=== PATIENT | male | born 1965 | race Caucasian/White ===

== ENCOUNTER 2017-08-01 13:39 | Emergency (ER) | payer MEDICARE, OTHER ==
[2017-08-01] MEDS ORDERED: SODIUM CHLORIDE 0.9% 1,000 ML IV STA (13:58)
[2017-08-01] MEDS ORDERED: KETOROLAC 30 MG/ML 1 ML VIAL IVP STA (13:58)
[2017-08-01] MEDS ORDERED: SODIUM CHLORIDE 0.9% 500 ML IV STA (13:58)
[2017-08-01] MEDS ORDERED: METOCLOPRAMIDE 5 MG/ML 2 ML VIAL IVP STA (13:58)
[2017-08-01] MEDS ORDERED: DEXAMETHASONE SOD PHOSPHATE 10 MG/ML 1 ML VIAL IV STA (13:59)
[2017-08-01] MEDS ORDERED: MAGNESIUM SULFATE-D5W PMX 1 GM in DEXTROSE/WATER 1 100ML.BAG IVPB ONE (13:59)
--- NOTE | 2017-08-01 14:58 | CT ---
EXAMINATION TYPE: CT brain wo con DATE OF EXAM: 08/01/2017 COMPARISON: NONE HISTORY: Headache x 1 month. Patient is on blood thinners. CT DLP: 1329.00 mGycm Automated exposure control for dose reduction was used. FINDINGS: Exam limited by motion artifact. No obvious acute intraparenchymal hemorrhage noted. Due to the amoun t of motion artifact assessment for subtle hemorrhage limited. No midline shift. Calvarium grossly intact. Hypoaeration the right mastoid air cells likely on the ba sis of chronic mastoiditis. IMPRESSION: 1. LIMITED EXAM DUE TO MOTION DEMONSTRATES NO OBVIOUS ACUTE INTRACRANIAL HEMORRHAGE OR MASS EFFECT. I F SYMPTOMS PERSIST CONSIDER MRI GIVEN LIMITATION OF THE EXAM.
--- NOTE | 2017-08-01 15:50 | ED ---
Headache HPI - General Chief Complaint: Headache Stated Complaint: Mirgaine Time Seen by Provider: 08/01/17 13:52 Mode of arrival: ambulatory Limitations: no limitations - History of Present Illness Initial Comments: This 52-year-old white male presents with a complaint of a headache. He states that it is in his occipital region and biparietal areas. He states that it is consistent with his migraine headaches but is fairly severe. He does relate that it radiates to his neck. This been no fevers. He apparently had some slurring of his speech over the past day but this has subsequently resolved. He denies any problems with vision. He denies any head injuries. He is not had any workup in regard to imaging recently. No other complaints or modifying factors. - Related Data Home Medications Medication Instructions Recorded Confirmed Albuterol Inhaler [Ventolin Hfa 1 - 2 puff INHALATION RT-Q6H PRN 08/01/17 Inhaler] Furosemide [Lasix] 20 mg PO DAILY 08/01/17 08/01/17 Gabapentin [Neurontin] 300 mg PO TID 08/01/17 08/01/17 Potassium Chloride ER [K-Dur 10] 10 meq PO DAILY 08/01/17 08/01/17 Rivaroxaban [Xarelto] 20 mg PO DAILY 08/01/17 08/01/17 Allergies Allergy/AdvReac Type Severity Reaction Status Date / Time Penicillins AdvReac Anaphylaxis Verified 08/01/17 14:24 Review of Systems ROS Statement: Those systems with pertinent positive or pertinent negative responses have been documented in the HPI. ROS Other: All systems not noted in ROS Statement are negative. Past Medical History Past Medical History: Asthma, Heart Failure, COPD, Deep Vein Thrombosis (DVT) Additional Past Medical History / Comment(s): depression,PE History of Any Multi-Drug Resistant Organisms: MRSA Date of last positivie culture/infection: 07/27/2014 MDRO Source:: Left leg Past Surgical History: Tonsillectomy Past Psychological History: Unable to Obtain Smoking Status: Current every day smoker Past Alcohol Use History: None Reported Past Drug Use History: None Reported General Exam - General Exam Comments Initial Comments: GENERAL: The patient is well nourished and well hydrated. VITAL SIGNS: Heart rate, blood pressure, respiratory rate reviewed as recorded in nurse's notes. EYES: Pupils are round and reactive. Extraocular movements are intact. No conjunctival / lid redness or swelling. ENT: No external evidence of injury, swelling, or ecchymosis. Airway is patent. Throat is clear. NECK: Nontender. No swelling or evidence of injury. No subcutaneous emphysema. Trachea is midline. No thyroid mass. No meningeal signs. HEART: Regular rate and rhythm. Good peripheral pulses. LUNGS/CHEST: Breath sounds clear and equal bilaterally. No rales, rhonchi, or wheezes. No ecchymosis, subcutaneous emphysema, or tenderness. ABDOMEN: Abdomen soft without tenderness. No palpable masses or organomegaly. No peritoneal signs. No abdominal wall swelling or ecchymosis. EXTREMITIES: No extremity tenderness. Normal muscle tone and function. No thoracolumbar tenderness. NEUROLOGIC: Sensation is grossly intact. Cranial nerve exam reveals face is symmetrical, tongue is midline, speech is clear. SKIN: No abrasions or ecchymosis is noted. No induration or masses noted. PSYCHIATRIC: Alert and oriented. Appropriate behavior and judgment. Limitations: no limitations Course Vital Signs 08/01/17 13:44 Temperature 98.5 F Pulse Rate 119 H Respiratory 28 H Rate Blood Pressure 159/84 O2 Sat by Pulse 90 L Oximetry Medical Decision Making - Medical Decision Making The patient was seen and examined. His computed tomography scan of the brain does not show any acute process per radiology. There is some limited motion artifact. Patient receives an IV with IV fluid hydration, IV Decadron, IV Toradol, IV magnesium, and IV Reglan. On recheck, he is sleeping. He feels remarkably improved. It is felt as though he stable for discharge home and that his symptoms are likely consistent with a migraine headache. Return parameters are discussed. Disposition Clinical Impression: Migraine Disposition: HOME SELF-CARE Condition: Good Instructions: Migraine Headache (ED) Referrals: Kareem Ho MD [Primary Care Provider] - 1-2 days Time of Disposition: 15:49
[2017-08-01 16:10] VITALS: BP 109/59; PULSE 107; RESP 20; TEMP 98
== END 2017-08-01 16:10 | disposition home or self-care (01) ==
LOC: EC 13:39
DX: G43.909 Migraine, unspecified, not intractable, without status migrainosus (principal); I50.9 Heart failure, unspecified; F32.9 Major depressive disorder, single episode, unspecified; F17.200 Nicotine dependence, unspecified, uncomplicated; Z86.711 Personal history of pulmonary embolism; Z86.718 Personal history of other venous thrombosis and embolism; Z86.14 Personal history of Methicillin resistant Staphylococcus aureus infection; Z79.899 Other long term (current) drug therapy; Z79.01 Long term (current) use of anticoagulants; Z88.0 Allergy status to penicillin
CPT/HCPCS: 99284 ×2; 96365; 96375 ×4; 96361 ×3; 96374; 70450; J1100; J2765; J1885; J3475

== ENCOUNTER → 2018-08-17 | Outpatient (CLI) | payer MEDICARE ==
--- NOTE | 2018-08-17 15:52 | US ---
EXAMINATION TYPE: US thyroid st tissue head/neck DATE OF EXAM: 08/17/2018 COMPARISON: NONE CLINICAL HISTORY: R22.0 Thyroid swelling, R00.2 Palpitations. Pt states feeling lump/swelling in thro at Pt heavy breathing, difficult exam GLAND SIZE: Right Lobe: 4.3 x 2.2 x 1.8 cm Overall Parenchyma: heterogenous Left Lobe: 3.7 x 1.6 x 1.6 cm Overall Parenchyma: heterogeneous Isthmus Thickness: 0.5 cm NODULES LEFT: # of nodules measured on left: 1 1. 0.7 X 0.6 x 0.6 cm hypoechoic solid nodule at the mid pole with well-defined margins; This nodu le is wider than tall and shows no intranodular vascularity. Prior size: No prior Bilateral neck scanned, possible lymph node left lateral neck= 0.7 cm, hypoechoic/mixed in appearance . Nodule left lobe of thyroid. IMPRESSION: Subcentimeter left thyroid nodule.
--- NOTE | 2018-08-18 09:33 | ECHOF ---
Referral Reason:R22.0 Thyroid swelling, R00.2 Palpitations MEASUREMENTS -------- HEIGHT: 182.9 cm WEIGHT: 106.6 kg BP: RVIDd: 3.6 cm (< 3.3) IVSd: 1.3 cm (0.6 - 1.1) LVIDd: 4.0 cm (3.9 - 5.3) LVPWd: 1.2 cm (0.6 - 1.1) IVSs: 1.6 cm LVIDs: 2.9 cm LVPWs: 1.4 cm LAESV Index (A-L): 17.84 ml/m Ao Diam: 3.7 cm (2.0 - 3.7) AV Cusp: 2.1 cm (1.5 - 2.6) LA Diam: 3.6 cm (2.7 - 3.8) MV EXCURSION: 21.518 mm (> 18.000) MV EF SLOPE: 80 mm/s (70 - 150) EPSS: 0.8 cm MV E Jose: 0.75 m/s MV DecT: 261 ms MV A Jose: 1.07 m/s MV E/A Ratio: 0.71 RAP: 10.00 mmHg RVSP: 16.95 mmHg FINDINGS -------- Resting tachycardia (HR>100bpm). This was a technically adequate study. The left ventricular size is normal. There is mild concentric left ventricular hypertrophy. Overa ll left ventricular systolic function is normal with, an EF between 55 - 60 %. The right ventricle is mildly enlarged. Normal LA size by volume 22+/-6 ml/m2. RA appears enlarged. There is mild aortic valve sclerosis. There is no evidence of aortic regurgitation. There is no e vidence of aortic stenosis. Mild mitral annular calcification present. There is trace to mild mitral regurgitation. Trace tricuspid regurgitation present. Right ventricular systolic pressure is normal at < 35 mmHg. There is no evidence of pulmonary hypertension. The pulmonic valve was not well visualized. The aortic root size is normal. The IVC is dilated with normal collapse. There is no pericardial effusion. CONCLUSIONS -------- 1. Resting tachycardia (HR>100bpm). 2. This was a technically adequate study. 3. The left ventricular size is normal. 4. There is mild concentric left ventricular hypertrophy. 5. Overall left ventricular systolic function is normal with, an EF between 55 - 60 %. 6. The right ventricle is mildly enlarged. 7. Normal LA size by volume 22+/-6 ml/m2. 8. RA appears enlarged. 9. There is mild aortic valve sclerosis. 10. Mild mitral annular calcification present. 11. There is trace to mild mitral regurgitation. 12. Trace tricuspid regurgitation present. 13. Right ventricular systolic pressure is normal at < 35 mmHg. 14. There is no evidence of pulmonary hypertension. 15. The pulmonic valve was not well visualized. 16. The aortic root size is normal. 17. The IVC is dilated with normal collapse. 18. There is no pericardial effusion. TAB CUTTING MACHINE OPERATOR: Shawn Strong RDCS
== END | disposition home or self-care (01) ==
LOC: RADECHMAIN 14:49
PROVIDERS: ATTEND Internal Medicine
DX: E04.1 Nontoxic single thyroid nodule (principal); I08.0 Rheumatic disorders of both mitral and aortic valves; Z88.0 Allergy status to penicillin
CPT/HCPCS: 76536; 93306

== ENCOUNTER → 2018-11-13 | Outpatient (CLI) | payer MEDICARE ==
--- NOTE | 2018-11-13 20:36 | CONS ---
CONSULTATION REASON FOR CONSULTATION: Sleep apnea. This is a 53-year-old male patient with advanced COPD with a baseline FEV1 of 27% of predicted. The patient also has chronic hypoxic respiratory failure, maintained on oxygen 4 L/minute nasal cannula. The patient also has had chronic hypercapnic respiratory failure, and previous evaluations have indicated the patient suffers from a left hemidiaphragmatic paralysis. This was confirmed by a positive sniff test. The patient has had on and off hospitalizations for COPD exacerbation and hypercapnic respiratory failure and CO2 narcosis. He is still smoking cigarettes. He was referred to [facility] for diaphragmatic plication; however, this was declined, as the patient was still smoking and the patient was felt to be at high risk for surgical complications. During initial evaluation at his primary care physician's office, the patient was given a BiPAP ST machine and he was asked to come into the sleep center for further evaluation. He was placed on a spontaneous mode on his VPAP auto with an EPAP minimum of 7 and IPAP of 15. He got this machine approximately a month ago. Based on the compliance data that I have obtained from his machine, the patient has utilized his machine 28 out of 30 days, achieving a compliance of 93%. He achieved more than 4 hours 73% of the time. He is averaging around 5 hours and 34 minutes of VPAP use per night. His AHI is down to 1 with a leak factor of 1.1 L and he is using a full-face mask. He is not utilizing oxygen therapy while on the VPAP. He has no new complaints. He is not snoring while on the unit. He is still waking up tired, and on and off he falls asleep during the day. He goes to bed around 11:30 p.m., wakes up at 8 a.m. in the morning, and his sleep schedule is quite erratic. His Prospect score is 11. No chest pain. There is a chronic cough with some limited sputum production. No recent weight gain or weight loss. No change in his overall pulmonary status while being on the VPAP unit. PAST MEDICAL HISTORY: 1. Advanced COPD with a baseline FEV1 of 27% of predicted. 2. Chronic hypoxic respiratory failure. 3. History of left diaphragmatic hemiparalysis. 4. Chronic hypercapnic respiratory failure. 5. History of pulmonary embolism, maintained on anticoagulation with Xarelto. 6. Chronic smoking. PAST SURGICAL HISTORY: Includes tonsillectomy in 1966. DRUG ALLERGIES: NOT KNOWN. OUTPATIENT MEDICATION LIST: Includes: 1. Xarelto 20 mg p.o. daily. 2. Cardizem 120 mg p.o. daily. 3. Klor-Con 1 tablet daily. 4. Lasix 40 mg p.o. daily. 5. Singulair 10 mg p.o. daily. 6. Albuterol/ipratropium nebulized treatments 4 times a day as needed. SOCIAL HISTORY: Smoking half pack of cigarettes a day. No history of alcoholism. No history of IV drugs. FAMILY HISTORY: Negative for sleep apnea. REVIEW OF SYSTEMS: Twelve-point review of systems was done. Positive findings were all mentioned above in the history of present illness. He has excessive fatigue, diminished level of activity, no excessive weight gain or weight loss, no change in appetite. No fever or chills. No visual changes. No hearing problems. No angina. He has chronic cough and some clear sputum production, exertional dyspnea. No nausea, vomiting, diarrhea or abdominal pain. No dysuria or frequency or urgency. No skeletal aches and pains at this point. No wounds or ulcerations. No lesions. PHYSICAL EXAMINATION: BP is 106/68, pulse 100, respirations 16, temperature 98.2. Saturation is somewhere between 86% and 93% on 4 L of oxygen by nasal cannula. Weight is 224, height 5 feet 11 inches. Neck size is 17-1/2 inches. GENERAL APPEARANCE: Calm, comfortable. No acute distress. Head is atraumatic, normocephalic. NECK: Supple. No JVD. No goiter or neck mass. LUNGS: Diminished breath sounds bilaterally. Scattered expiratory wheezes heard throughout the lung payne. The patient has prolongation of the expiratory phase of breathing. Heart sounds are regular rate and rhythm. Normal S1, S2. No S3, S4. No murmurs. ABDOMEN: Soft, nontender. No direct tenderness, rebound tenderness or guarding. EXTREMITIES: No edema. No cyanosis or clubbing. Neurologically awake and alert. No focal neurological deficits. PSYCHIATRIC: Negative for anxiety or depression. IMPRESSION: 1. Advanced chronic obstructive pulmonary disease with an FEV1 of 27% of predicted. 2. Chronic hypoxic respiratory failure. 3. Chronic hypercapnic respiratory failure. 4. Chronic left hemidiaphragmatic paralysis. 5. History of pulmonary embolism. 6. History of smoking. PLAN: No suspicion for obstructive sleep apnea. The patient is being treated with non- invasive positive pressure ventilation based on his advanced COPD and chronic hypercapnic respiratory failure. He will need a baseline blood gas to assess the extent of his hypercapnia and acid base status. Optimize COPD through Dr. Garcia. The machine compliancy was checked and the numbers look favorable. Continue using the machine. This will decrease the risk of having exacerbation, and in some instances it has been reported to improve mortality in patients with advanced COPD. Will continue to follow. No need for any further adjustments. The patient will bring in the machine tomorrow into my main office for me to check and make adjustments if needed. MMODL / IJN: [id number] /
== END | disposition home or self-care (01) ==
LOC: SLEEP 15:19
PROVIDERS: ATTEND Internal Medicine Critical Care Medicine
DX: J96.11 Chronic respiratory failure with hypoxia (principal); J44.9 Chronic obstructive pulmonary disease, unspecified; J96.12 Chronic respiratory failure with hypercapnia; J98.6 Disorders of diaphragm; F17.210 Nicotine dependence, cigarettes, uncomplicated; Z86.711 Personal history of pulmonary embolism; Z99.81 Dependence on supplemental oxygen; Z79.51 Long term (current) use of inhaled steroids; Z79.899 Other long term (current) drug therapy
CPT/HCPCS: 99211

== ENCOUNTER 2019-04-21 04:39 | Inpatient (IN) | payer MEDICARE ==
--- NOTE | 2019-04-21 04:53 | ED ---
General Adult HPI - General Chief complaint: Extremity Injury, Upper Stated complaint: Lt arm pain Time Seen by Provider: 04/21/19 04:52 Source: patient Limitations: no limitations - History of Present Illness Initial comments: David is a 53yo male with PMH of end stage COPD on oxygen who presents to the urgency department today by private vehicle for evaluation of severe left elbow pain. Patient reports that she's experienced pain similar to this proximally and month ago but it resolved and number of hours. Patient reports that during the night tonight he began experiencing pain in his left elbow. He reports the pain is severe, 10 out of 10 in intensity. Pain is worse with any movement, states he keeps his arm in a flexed position at 90 but the pain never resolves completely. Pain is not associated with any fevers, chills, chest pain or worsening shortness of breath. Patient reports that the pain began in his elbow and now feels like is rating down to his hand and up to his shoulder. He denies any recent injury or repetitive motions. Patient reports he is on disability due to his end-stage COPD therefore he doesn't work or participate in any significantly strenuous activities. - Related Data Home Medications Medication Instructions Recorded Confirmed Albuterol Inhaler [Ventolin Hfa 1 - 2 puff INHALATION RT-Q6H PRN 08/01/17 08/01/17 Inhaler] Furosemide [Lasix] 20 mg PO DAILY 08/01/17 08/01/17 Gabapentin [Neurontin] 300 mg PO TID 08/01/17 08/01/17 Potassium Chloride ER [K-Dur 10] 10 meq PO DAILY 08/01/17 08/01/17 Rivaroxaban [Xarelto] 20 mg PO DAILY 08/01/17 08/01/17 Allergies Allergy/AdvReac Type Severity Reaction Status Date / Time Penicillins AdvReac Anaphylaxis Verified 08/01/17 14:24 Review of Systems ROS Statement: Those systems with pertinent positive or pertinent negative responses have been documented in the HPI. ROS Other: All systems not noted in ROS Statement are negative. Past Medical History Past Medical History: Asthma, Heart Failure, COPD, Deep Vein Thrombosis (DVT) Additional Past Medical History / Comment(s): depression,PE History of Any Multi-Drug Resistant Organisms: MRSA Date of last positivie culture/infection: 07/27/2014 MDRO Source:: Left leg Past Surgical History: Tonsillectomy Past Psychological History: Unable to Obtain Smoking Status: Current every day smoker Past Alcohol Use History: None Reported Past Drug Use History: None Reported General Exam - General Exam Comments Initial Comments: Physical Exam GENERAL: Chronically ill-appearing, oxygen-dependent HENT: Normocephalic, Atraumatic. EYES: PERRL, EOMI PULMONARY: Unlabored respirations CARDIOVASCULAR: There is a regular rate and rhythm without any murmurs gallops or rubs. Strong radial and ulnar pulses bilaterally Refill of the left hand is less than 3 seconds ABDOMEN: Soft and nontender with normal bowel sounds. SKIN: Skin is clear with no lesions or rashes and otherwise unremarkable. No obvious redness, erythema or induration of the skin : Deferred NEUROLOGIC: Patient is alert and oriented x3. Moving all extremities spontaneously MUSCULOSKELETAL: Decreased range of motion of left elbow secondary to pain, left elbow is warm to the touch, there is no obvious redness The muscles are soft, the compartments are soft PSYCHIATRIC: Agitated secondary to pain Limitations: no limitations Course Vital Signs 04/21/19 04/21/19 04/21/19 04:42 05:22 06:19 Temperature 97.2 F L 97.9 F Pulse Rate 101 H 87 83 Respiratory 16 16 Rate Blood Pressure 135/89 135/93 O2 Sat by Pulse 95 95 Oximetry EKG Findings - EKG Comments: EKG Findings:: TEG was ordered due to septic workup. EKG obtained at 5:17 AM, rate is 82 rhythm is sinus with PACs there is normal axis and normal intervals, MA 126, QRS 100, QTC 450 there is no acute ST elevations or depressions no evidence of acute ischemia or infarction. Medical Decision Making - Medical Decision Making The patient was seen and evaluated upon arrival to the emergency department, patient was noted to have pain in the left elbow. The left elbow and flexed position. Physical exam the skin is unremarkable the arm is warm and well perfused Patient was noted to be tachycardic and a septic workup was initiated Series were obtained and morphine was given for pain management Labs with elevated WBC and CRP Xray with large effusion Given these findings and patient's physical exam there is concern for septic joint. Vancomycin and Cipro ordered due to patients anaphylactic reaction to PCN [facility]At[facility] on behalf of Dr. Siddiqui with a consult to orthopedics. - Lab Data Result diagrams: 04/21/19 05:02 04/21/19 05:02 Lab Results 04/21/19 04/21/19 04/21/19 Range/Units 05:02 05:02 05:02 WBC 12.3 H (3.8-10.6) k/uL RBC 5.69 (4.30-5.90) m/uL Hgb 16.1 (13.0-17.5) gm/dL Hct 51.1 (39.0-53.0) % MCV 89.8 (80.0-100.0) fL MCH 28.4 (25.0-35.0) pg MCHC 31.6 (31.0-37.0) g/dL RDW 14.6 (11.5-15.5) % Plt Count 282 (150-450) k/uL Neutrophils % 59 % Lymphocytes % 28 % Monocytes % 7 % Eosinophils % 3 % Basophils % 1 % Neutrophils # 7.3 (1.3-7.7) k/uL Lymphocytes # 3.5 (1.0-4.8) k/uL Monocytes # 0.8 (0-1.0) k/uL Eosinophils # 0.4 (0-0.7) k/uL Basophils # 0.1 (0-0.2) k/uL PT (9.0-12.0) sec INR (<1.2) APTT (22.0-30.0) sec Sodium 140 (137-145) mmol/L Potassium 4.5 (3.5-5.1) mmol/L Chloride 97 L (98-107) mmol/L Carbon Dioxide 35 H (22-30) mmol/L Anion Gap 8 mmol/L BUN 18 (9-20) mg/dL Creatinine 0.69 (0.66-1.25) mg/dL Est GFR (CKD-EPI)AfAm >90 (>60 ml/min/1.73 sqM) Est GFR (CKD-EPI)NonAf >90 (>60 ml/min/1.73 sqM) Glucose 109 H (74-99) mg/dL Plasma Lactic Acid Dl 1.0 (0.7-2.0) mmol/L Calcium 9.9 (8.4-10.2) mg/dL Total Bilirubin 0.3 (0.2-1.3) mg/dL AST 24 (17-59) U/L ALT 18 L (21-72) U/L Alkaline Phosphatase 72 (38-126) U/L Creatine Kinase 71 (55-170) U/L C-Reactive Protein 15.5 H (<10.0) mg/L Total Protein 7.3 (6.3-8.2) g/dL Albumin 4.6 (3.5-5.0) g/dL 04/21/19 Range/Units 05:02 WBC (3.8-10.6) k/uL RBC (4.30-5.90) m/uL Hgb (13.0-17.5) gm/dL Hct (39.0-53.0) % MCV (80.0-100.0) fL MCH (25.0-35.0) pg MCHC (31.0-37.0) g/dL RDW (11.5-15.5) % Plt Count (150-450) k/uL Neutrophils % % Lymphocytes % % Monocytes % % Eosinophils % % Basophils % % Neutrophils # (1.3-7.7) k/uL Lymphocytes # (1.0-4.8) k/uL Monocytes # (0-1.0) k/uL Eosinophils # (0-0.7) k/uL Basophils # (0-0.2) k/uL PT 9.7 (9.0-12.0) sec INR 0.9 (<1.2) APTT 26.4 (22.0-30.0) sec Sodium (137-145) mmol/L Potassium (3.5-5.1) mmol/L Chloride (98-107) mmol/L Carbon Dioxide (22-30) mmol/L Anion Gap mmol/L BUN (9-20) mg/dL Creatinine (0.66-1.25) mg/dL Est GFR (CKD-EPI)AfAm (>60 ml/min/1.73 sqM) Est GFR (CKD-EPI)NonAf (>60 ml/min/1.73 sqM) Glucose (74-99) mg/dL Plasma Lactic Acid Dl (0.7-2.0) mmol/L Calcium (8.4-10.2) mg/dL Total Bilirubin (0.2-1.3) mg/dL AST (17-59) U/L ALT (21-72) U/L Alkaline Phosphatase (38-126) U/L Creatine Kinase (55-170) U/L C-Reactive Protein (<10.0) mg/L Total Protein (6.3-8.2) g/dL Albumin (3.5-5.0) g/dL Disposition Clinical Impression: Septic joint Disposition: ADMITTED IP TO THIS HOSP Condition: Stable Referrals: Kareem Ho MD [Primary Care Provider] - 1-2 days
[2019-04-21] MEDS ORDERED: MORPHINE SULFATE 4 MG/ML SYRINGE IVP STA (04:57)
[2019-04-21] MEDS: SODIUM CHLORIDE 0.9% 500 ML 500 ML IV SCH ×2 (05:11→05:36)
[2019-04-21 05:23] LABS: Basophils # (A) 0.1 k/uL (0-0.2); Basophils % (A) 1 %; Eosinophils # (A) 0.4 k/uL (0-0.7); Eosinophils % (A) 3 %; HCT 51.1 % (39.0-53.0); HGB 16.1 gm/dL (13.0-17.5); Lymphocytes # (A) 3.5 k/uL (1.0-4.8); Lymphocytes % (A) 28 %; MCH 28.4 pg (25.0-35.0); MCHC 31.6 g/dL (31.0-37.0); MCV 89.8 fL (80.0-100.0); Mean Platelet Volume 7.5; Monocytes # (A) 0.8 k/uL (0-1.0); Monocytes % (A) 7 %; Neutrophils # (A) 7.3 k/uL (1.3-7.7); Neutrophils % (A) 59 %; Platelet Count 282 k/uL (150-450); RBC 5.69 m/uL (4.30-5.90); RDW 14.6 % (11.5-15.5); WBC 12.3 k/uL (3.8-10.6)
[2019-04-21 05:31] LABS: INR 0.9 (<1.2); Partial Thromboplastin Time 26.4 sec (22.0-30.0); Prothrombin Time 9.7 sec (9.0-12.0)
[2019-04-21 05:40] LABS: ALT 18 U/L (21-72); AST 24 U/L (17-59); African American GFR (CKD) >90 (>60 ml/min/1.73 sqM); Albumin 4.6 g/dL (3.5-5.0); Alkaline Phosphatase 72 U/L (38-126); Anion Gap 8 mmol/L; Blood Urea Nitrogen 18 mg/dL (9-20); C Reactive Protein 15.5 mg/L (<10.0); Calcium 9.9 mg/dL (8.4-10.2); Carbon Dioxide 35 mmol/L (22-30); Chloride 97 mmol/L (98-107); Creatine Kinase 71 U/L (55-170); Glucose 109 mg/dL (74-99); Potassium 4.5 mmol/L (3.5-5.1); Sodium 140 mmol/L (137-145); Total Bilirubin 0.3 mg/dL (0.2-1.3); Total Protein 7.3 g/dL (6.3-8.2)
--- NOTE | 2019-04-21 05:49 | XR ---
EXAM: XR Left Elbow Complete, 3 or More Views CLINICAL HISTORY: ITS.REASON XR Reason: Pain TECHNIQUE: Frontal, lateral and oblique views of the left elbow. COMPARISON: No relevant prior studies available. FINDINGS: Large joint effusion. No definite fracture. Correlate with CT. IMPRESSION: See above
[2019-04-21] MEDS ORDERED: VANCOMYCIN IV PER PHARMACY 1 EACH MISC MISCELLANE PRN (05:57)
[2019-04-21] MEDS ORDERED: LEVOFLOXACIN 500MG-D5W PMX 500 MG in DEXTROSE/WATER 1 100ML.BAG IVPB STA (05:58)
[2019-04-21] MEDS ORDERED: NALOXONE 0.4 MG/ML 1 ML VIAL IV PRN (05:59)
[2019-04-21] MEDS ORDERED: ACETAMINOPHEN TAB 325 MG TAB PO PRN (05:59)
[2019-04-21] MEDS ORDERED: VANCOMYCIN 1,500 MG in SODIUM CHLORIDE 0.9% 250 ML IVPB STA (06:04)
[2019-04-21] MEDS: SODIUM CHLORIDE 0.9% 1,000 ML IV SCH ×3 (06:07→22:15)
[2019-04-21] MEDS ORDERED: HYDROmorphone 0.5 MG/0.5 ML SYRINGE IVP STA (06:15)
[2019-04-21] MEDS: MORPHINE SULFATE 4 MG/ML SYRINGE IV PRN ×3 (08:55→21:08)
--- NOTE | 2019-04-21 09:36 | P.CNOR ---
History of Present Illness - [facility] Consult date: 04/21/19 Consult reason: joint pain, other History of present illness: Patient is a 53-year-old male who presented to [facility] early this morning with regards to left elbow pain. Patient states the pain has been there for about a day. He describes the pain at 10 out of 10, nothing as seemed to help. Patient denies any recent trauma or change in activity. Patient admits to a similar issue with his left elbow about a month ago, this spontaneously resolved. Patient was admitted under internal medicine, he was started on IV antibiotics in the emergency room. Orthopedic team was consulted for further evaluation for possible septic arthritis. Patient was evaluated at bedside today, he notes no improvement in the left elbow. Denies any pain involving the shoulder, hand or wrist. He denies any paresthesias of the left upper extremity. Denies any change in activity level, no recent trauma. Past medical history to include severe COPD, he does require oxygen supplementation to home. Patient has a history of DVT and pulmonary embolism, patient does take Xarelto 20 mg daily. Review of Systems Constitutional: Reports as per [facility] Past Medical History Past Medical History: Asthma, Heart Failure, COPD, Deep Vein Thrombosis (DVT) Additional Past Medical History / Comment(s): depression,PE History of Any Multi-Drug Resistant Organisms: MRSA Year Discovered:: 07/27/2014 MDRO Source:: Left leg Past Surgical History: Tonsillectomy Past Psychological History: Unable to Obtain Smoking Status: Current every day smoker Past Alcohol Use History: None Reported Past Drug Use History: None Reported - Past Family History Father Additional Family Medical History / Comment(s): blood clot Mother Family Medical History: Cancer Medications and Allergies Home Medications Medication Instructions Recorded Confirmed Type Albuterol Inhaler [Ventolin Hfa 1 - 2 puff INHALATION RT-Q6H PRN 08/01/17 08/01/17 History Inhaler] Furosemide [Lasix] 20 mg PO DAILY 08/01/17 08/01/17 History Gabapentin [Neurontin] 300 mg PO TID 08/01/17 08/01/17 History Potassium Chloride ER [K-Dur 10] 10 meq PO DAILY 08/01/17 08/01/17 History Rivaroxaban [Xarelto] 20 mg PO DAILY 08/01/17 08/01/17 History Allergies Allergy/AdvReac Type Severity Reaction Status Date / Time Penicillins AdvReac Anaphylaxis Verified 08/01/17 14:24 Physical Examination Left upper extremity: Obvious open lesions or sores present, no significant areas of soft tissue swelling or erythema. The skin is slightly warm to touch compared to the contralateral side Patient holds the elbow at 90, passive range of motion of the elbow causes severe pain Gentle range of motion of the shoulder reproduces no pain, extension and flexion of the wrist causes no discomfort. No tenderness with palpation surrounding the shoulder or hand and wrist Generalized tenderness throughout the elbow with palpation Sensation to light touch throughout the upper extremities intact, radial pulses 2+ Results - Labs Labs: Abnormal Lab Results - Last 24 Hours (Table) 04/21/19 04/21/19 Range/Units 05:02 05:02 WBC 12.3 H (3.8-10.6) k/uL Chloride 97 L (98-107) mmol/L Carbon Dioxide 35 H (22-30) mmol/L Glucose 109 H (74-99) mg/dL ALT 18 L (21-72) U/L C-Reactive Protein 15.5 H (<10.0) mg/L H & H 04/21/19 Range/Units 05:02 Hgb 16.1 (13.0-17.5) gm/dL Hct 51.1 (39.0-53.0) % Coagulation 04/21/19 Range/Units 05:02 INR 0.9 (<1.2) Result Diagrams: 04/21/19 05:02 04/21/19 05:02 - Diagnostic results Elbow x-ray: report reviewed, image reviewed Assessment and Plan Plan: Imaging: Multiple views of the left elbow were obtained, no fractures or dislocations noted. Report did notice effusion of the elbow Assessment: 1. Left elbow pain 2. Possible left elbow septic arthropathy 3. Possible left elbow gouty arthropathy 4. Other medical comorbidities Plan: Dr. Rudolph was available today to examine the patient and I discussed the treatment options. With the patient's symptomatic findings along with laboratory findings, there is a high likely to of a septic arthropathy. Patient was made nothing by mouth when he came in to the hospital. Patient was started on IV antibiotics upon admission. We would like to proceed with incision and drainage with possible irrigation and debridement of the left elbow on 04/21/2019. Risk and benefits of the procedure were discussed with the patient, he is in good understanding like to proceed. We will obtain cultures during surgery Nothing by mouth Infectious disease consult after surgery Medical recommendations GI and DVT prophylaxis, will resume Xarelto after surgery Pain control Further recommendations to follow Time with Patient: Less than 30
[2019-04-21] MEDS ORDERED: PHENYLEPHRINE-0.9% NACL SYG 1 MG/10 ML SYRINGE ONE (10:02)
[2019-04-21] MEDS ORDERED: LIDOCAINE 1% INJ 10MG/ML (20 ML MDV) ONE (10:02)
[2019-04-21] MEDS ORDERED: MIDAZOLAM 2 MG/2 ML VIAL ONE (10:02)
[2019-04-21] MEDS ORDERED: ALBUTEROL INHALER 60 PUFF/8 GM INHALER INHALATION ONE (10:02)
[2019-04-21] MEDS ORDERED: PROPOFOL 10 MG/ML 20 ML VIAL IV ONE (10:02)
[2019-04-21] MEDS ORDERED: SUCCINYLCHOLINE CHLORIDE 100 MG/5 ML SYR IV ONE (10:02)
[2019-04-21] MEDS ORDERED: fentaNYL (PF) 50 MCG/ML 2 ML AMP ONE (10:02)
[2019-04-21] MEDS ORDERED: LACTATED RINGERS 1,000 ML IV ONE (10:11)
[2019-04-21] MEDS ORDERED: CLINDAMYCIN 1,800 MG in SODIUM CHLORIDE 0.9% IRRIGATIO 3,000 ML IRRIGATION ONE (10:16)
--- NOTE | 2019-04-21 11:12 | P.OP ---
Date of Procedure: 04/21/19 Preoperative Diagnosis: Left elbow septic arthritis Postoperative Diagnosis: Same Procedure(s) Performed: Arthrotomy left elbow with incision and drainage/irrigation and debridement septic arthritis Anesthesia: KINGA Surgeon: Musa Rudolph Identifier Horse #1: Memo Smith Estimated Blood Loss (ml): 5 Pathology: other Condition: stable Disposition: PACU Indications for Procedure: The patient is a 53-year-old male who presents with 1 day history of progressive intense left elbow pain. Laboratory results showed an elevated white count with left shift along with elevated C-reactive protein indicative of a deep infection. A discussion of the risks and benefits of operative intervention was made with patient. He opted to proceed. Operative risks to include persistence of infection and possible need for subsequent procedures was discussed. Informe d consent was obtained. Operative Findings: synovitis/serosanguineous effusion Description of Procedure: The patient was brought to the operating room, and after induction of general anesthesia the left upper extremity was prepped and draped in a normal fashion. The tourniquet was inflated to 250 mmHg. A 4 cm incision was then made along t he posterior lateral border of the left elbow. The skin was incised sharply. Subcutaneous tissues were divided bluntly. Electrocautery was used for hemostasis. The interval between the anconeus and the extensor carpi ulnaris was then opened. The capsule was incised. A significant serosanguineous effusion was expressed. Deep cultures were obtained. The synovium was excised sharply with a scalpel. The joint was then copiously irrigated with normal saline. I left the joint capsule opened to allow for drainage. The skin was loosely reapproximated with simple 3-0 nylon suture. A sterile dressing was applied. The tourniquet was deflated with approximately 30 minutes total tourniquet time. The patient was awoken from general anesthesia and transferred to recovery room in good condition. Blood loss was estimated 5 mL. No complications were incurred. Sponge and needle counts were correct at the end of the case.
[2019-04-21] MEDS ORDERED: IPRATROPIUM-ALBUTEROL 3 ML NEB INHALATION PRN (12:45)
[2019-04-21] MEDS: IPRATROPIUM-ALBUTEROL 3 ML NEB INHALATION STA ×2 (12:51→12:58)
[2019-04-21] MEDS: HYDROcodone/APAP 7.5-325MG 1 EACH TAB PO PRN ×2 (13:55→19:09)
--- NOTE | 2019-04-21 15:49 | P.HPIM ---
History of Present Illness Chief Complaint: Left arm pain This is a 53-year-old gentleman with a past medical history significant for COPD on 4 L of oxygen at home, history of DVT/PE on xarelto, comes in to the ER for above-mentioned complaint. The patient says that he was okay until a day ago when he started having pain in his left elbow he said that the pain was gradually worsening over 10 x 10 intensity. He denied any trauma, any insect bite or any site of entry. The pain was not getting better so he came into the ER for further urology management. The patient did not complain of any fever or chills, he did not complain of any chest pain racing heart, no cough no shortness breath, abdominal pain, nausea and vomiting, or diarrhea constipation, no tingling numbness of his extremities, no itch or rash. Next ER course-temperature 97.9 pulse 117 respiration 18 blood pressure 108/71. Labwork was initial WBC 12.3 hemoglobin 16.1 platelets 282 3140 potassium 4.5 bun 18 creatinine 0.69 GFR more than 90. X-ray of the left elbow was done which showed large effusion. Patient was given pain medications, was started on vancomycin and admitted to the hospitalist service for further evaluation and management with orthopedic consult for septic arthritis Review of Systems All systems: negative Past Medical History Past Medical History: Asthma, Heart Failure, COPD, Deep Vein Thrombosis (DVT) Additional Past Medical History / Comment(s): depression,PE History of Any Multi-Drug Resistant Organisms: MRSA Date of last positivie culture/infection: 07/27/2014 MDRO Source:: Left leg Past Surgical History: Tonsillectomy Past Psychological History: Unable to Obtain Smoking Status: Current every day smoker Past Alcohol Use History: None Reported Past Drug Use History: None Reported - Past Family History Father Additional Family Medical History / Comment(s): blood clot Mother Family Medical History: Cancer Medications and Allergies Home Medications Medication Instructions Recorded Confirmed Type Albuterol Inhaler [Ventolin Hfa 1 - 2 puff INHALATION RT-Q6H PRN 08/01/17 04/21/19 History Inhaler] Furosemide [Lasix] 20 mg PO BID 08/01/17 04/21/19 History Potassium Chloride ER [K-Dur 10] 10 meq PO DAILY 08/01/17 04/21/19 History Rivaroxaban [Xarelto] 20 mg PO DAILY 08/01/17 04/21/19 History Albuterol Nebulized [Ventolin 2.5 mg INHALATION RT-QID PRN 04/21/19 04/21/19 History Nebulized] Diltiazem Cd [Cardizem Cd] 120 mg PO DAILY 04/21/19 04/21/19 History Allergies Allergy/AdvReac Type Severity Reaction Status Date / Time Penicillins AdvReac Anaphylaxis Verified 04/21/19 09:31 Physical Exam Vitals: Vital Signs Temp Pulse Pulse Resp BP BP Pulse Ox 04/21/19 15:19 18 04/21/19 14:09 97.9 F 117 H 18 108/71 94 L 04/21/19 12:55 18 04/21/19 12:00 104 H 18 132/71 95 04/21/19 11:45 107 H 18 119/63 91 L 04/21/19 11:30 114 H 18 135/80 91 L 04/21/19 11:24 97.4 F L 111 H 18 136/79 92 L 04/21/19 07:34 16 04/21/19 07:03 97.7 F 89 18 112/74 98 04/21/19 06:19 97.9 F 83 16 135/93 95 04/21/19 05:22 87 04/21/19 04:42 97.2 F L 101 H 16 135/89 95 Intake and Output 04/21/19 04/21/19 04/21/19 06:59 14:59 22:59 Intake Total 1041 Output Total 5 Balance 1036 Intake: IV 501 Oral 540 Output: Estimated Blood Loss 5 Other: Weight 99.79 kg On exam, alert and oriented x3. HEENT: Conjunctivae normal. eyes normal. NECK: No JVD. No thyroid enlargement. No LNs CARDIOVASCULAR: S1-S2 positive RESPIRATION: Breath sounds diminished in the bases. No rhonchi or crackles. No bronchial breathing. ABDOMEN: Soft, nontender . No guarding. no masses palpable. No ascites, No hepatosplenomegaly.Bowel sounds heard. LEGS: No edema. no swelling NERVOUS SYSTEM: Cranial N 2-12 grossly normal. Moves all 4 limbs. No focal deficits. No sensory deficit. No signs of cerebellar dysfucntion. Skin: no ulcer no rash Joints: Patient's left elbow is back in dressing and sling status post incision and drainage Lymphatic system. No LN neck axilla or groin. Results CBC & Chem 7: 04/21/19 05:02 04/21/19 05:02 Labs: Abnormal Lab Results - Last 24 Hours (Table) 04/21/19 04/21/19 Range/Units 05:02 05:02 WBC 12.3 H (3.8-10.6) k/uL Chloride 97 L (98-107) mmol/L Carbon Dioxide 35 H (22-30) mmol/L Glucose 109 H (74-99) mg/dL ALT 18 L (21-72) U/L C-Reactive Protein 15.5 H (<10.0) mg/L Thrombosis Risk Factor Assmnt - Choose All That Apply Each Factor Represents 1 point: Abnormal pulmonary function (COPD), Age 41-60 years Other Risk Factors: Yes Each Risk Factor Represents 3 Points: History of DVT/PE Thrombosis Risk Factor Assessment Total Risk Factor Score: 5 Thrombosis Risk Factor Assessment Level: High Risk Assessment and Plan Assessment: - Left elbow pain and swelling - Rule out septic arthritis versus gouty arthritis - History of COPD with mild exacerbation. Patient wheezing - History of DVT/PE on xarelto - History of CHF - History of depression - History of asthma Plan - [facility]- - We'll continue antibiotics - Patient had I&D done by orthopedic surgery. We'll wait for the culture re sults - Infectious disease already consulted - We'll resume the patient's home medications - Patient was wheezing so we'll be starting him on DuoNeb and will get an x-ray. - Pain control - He had an echo done in August 2018 and at that time he is having ER if of 55-60%. He has a history of CHF service probably diastolic dysfunction. He was started on normal saline at 105 mL in the ER. We'll reduce it down to 75 mL. - DVT and GI prophylaxis - We'll order for lab work in the morning - Expected length of stay more than 2 midnights - Patient is full code
[2019-04-21] MEDS: IPRATROPIUM-ALBUTEROL 3 ML NEB INHALATION SCH ×3 (16:14→23:44)
[2019-04-21] MEDS: VANCOMYCIN 1,500 MG in SODIUM CHLORIDE 0.9% 250 ML IVPB SCH ×2 (16:31→23:13)
[2019-04-21] MEDS: NICOTINE 21MG/24HR PATCH TRANSDERM SCH (16:31)
[2019-04-21] MEDS ORDERED: ALBUTEROL INHALER 60 PUFF/8 GM INHALER INHALATION PRN (21:17)
[2019-04-21] MEDS ORDERED: ALBUTEROL NEBULIZED 2.5 MG/3 ML INHALATION PRN (21:17)
[2019-04-21] MEDS ORDERED: MELATONIN 5 MG TABLET PO PRN (21:34)
[2019-04-22] MEDS: IPRATROPIUM-ALBUTEROL 3 ML NEB INHALATION SCH ×6 (02:28→23:55)
[2019-04-22] MEDS: MORPHINE SULFATE 4 MG/ML SYRINGE IV PRN ×4 (02:43→18:34)
[2019-04-22] MEDS: SODIUM CHLORIDE 0.9% 1,000 ML IV SCH (06:13)
--- NOTE | 2019-04-22 07:12 | P.CONS ---
History of Present Illness - Reason for Consult Consult date: 04/21/19 Left elbow septic arthritis/bursitis Requesting physician: Memo Smith - Chief Complaint Left elbow pain and swelling 1 day - History of Present Illness Patient is a 53-year-old male presenting to the ER at [facility] with chief complaints of left elbow pain and swelling the night before he presented to the hospital the patient denies any history of any trauma patient did have significant limited motion at the elbow joint after the pain started , the patient described the pain to be the leaking to shop almost 10 out of 10 and when severe worse with movement of the elbow joint did have some swelling but no open wound or any drainage from it the symptoms the patient was evaluated by the ER physician x-rays of the elbow today shows large joint effusion patient did have elevated white count and his CRP subsequently the patient was taken to the OR and status post left elbow olecranon bursectomy with drainage of serosanguineous fluid patient to be started on vancomycin and Levaquin infectious disease was consulted for further recommendation regarding Antibiotic therapy Review of Systems CONSTITUTIONAL: Positive for weakness. Low-grade Fever EYES: No complaint. ENT:No complaint. RESPIRATORY: Shortness of breath CARDIOVASCULAR: No complaint. GENITOURINARY: No complaint. GASTROINTESTINAL: No complaint. MUSCULOSKELETAL: As per history of present illness INTEGUMENTARY: No complaint. PSYCHOLOGICAL: No complaint. ENDOCRINE: No complaint. NEUROLOGIC: No complaint. Past Medical History Past Medical History: Asthma, Heart Failure, COPD, Deep Vein Thrombosis (DVT) Additional Past Medical History / Comment(s): depression,PE History of Any Multi-Drug Resistant Organisms: MRSA Year Discovered:: 07/27/2014 MDRO Source:: Left leg Past Surgical History: Tonsillectomy Past Psychological History: Unable to Obtain Smoking Status: Current every day smoker Past Alcohol Use History: None Reported Past Drug Use History: None Reported - Past Family History Father Additional Family Medical History / Comment(s): blood clot Mother Family Medical History: Cancer Medications and Allergies Home Medications Medication Instructions Recorded Confirmed Type Albuterol Inhaler [Ventolin Hfa 1 - 2 puff INHALATION RT-Q6H PRN 08/01/17 04/21/19 History Inhaler] Furosemide [Lasix] 20 mg PO BID 08/01/17 04/21/19 History Potassium Chloride ER [K-Dur 10] 10 meq PO DAILY 10/17/17 07/07/19 History Rivaroxaban [Xarelto] 20 mg PO DAILY 08/01/17 04/21/19 History Albuterol Nebulized [Ventolin 2.5 mg INHALATION RT-QID PRN 04/21/19 04/21/19 History Nebulized] Diltiazem Cd [Cardizem Cd] 120 mg PO DAILY 04/21/19 04/21/19 History Allergies Allergy/AdvReac Type Severity Reaction Status Date / Time Penicillins AdvReac Anaphylaxis Verified 04/21/19 09:31 Physical Exam Vitals: Vital Signs Temp Pulse Pulse Resp BP BP Pulse Ox 04/21/19 12:55 18 04/21/19 12:00 104 H 18 132/71 95 04/21/19 11:45 107 H 18 119/63 91 L 04/21/19 11:30 114 H 18 135/80 91 L 04/21/19 11:24 97.4 F L 111 H 18 136/79 92 L 04/21/19 07:34 16 04/21/19 07:03 97.7 F 89 18 112/74 98 04/21/19 06:19 97.9 F 83 16 135/93 95 04/21/19 05:22 87 04/21/19 04:42 97.2 F L 101 H 16 135/89 95 Intake and Output 04/21/19 04/21/19 04/21/19 06:59 14:59 22:59 Intake Total 501 Output Total 5 Balance 496 Intake: IV 501 Output: Estimated Blood Loss 5 Other: Weight 99.79 kg GENERAL DESCRIPTION: Middle-aged male lying in bed, no distress. No tachypnea or accessory muscle of respiration use. HEENT: Shows Pallor , no scleral icterus. Oral mucous membrane is dry. No pharyn geal erythema or thrush NECK: Trachea central, no thyromegaly. LUNGS: Unlabored breathing. Decreased intensity of breath sounds. No wheeze or crackle. HEART: S1, S2, regular rate and rhythm. No loud murmur ABDOMEN: Soft, no tenderness , guarding or rigidity, no organomegaly EXTREMITIES: Left elbow is currently dressed up in or dressing and no drainage of the dressing SKIN: No rash, no masses palpable. NEUROLOGICAL: The patient is awake, alert, oriented x3, mood and affect normal Results CBC & Chem 7: 04/21/19 05:02 04/21/19 05:02 Labs: Abnormal Lab Results - Last 24 Hours (Table) 04/21/19 04/21/19 Range/Units 05:02 05:02 WBC 12.3 H (3.8-10.6) k/uL Chloride 97 L (98-107) mmol/L Carbon Dioxide 35 H (22-30) mmol/L Glucose 109 H (74-99) mg/dL ALT 18 L (21-72) U/L C-Reactive Protein 15.5 H (<10.0) mg/L Assessment and Plan Assessment: 1-patient presented to hospital with acute left elbow pain swelling and redness no history of any trauma in this patient who did have a significant had left elbow effusion with elevated white count and CRP is status post surgery with drainage of serosanguineous secretion concerning likely for her left elbow olecranon bursitis plus minus underlying septic arthritis will need to cover for the gram-positive skin glendy to be the likely pathogen and less likely gram- negative infection 2-patient with penicillin ALLERGY that would limit the number of antibiotic safe to use Plan: 1- vancomycin pharmacy to dose target trough of 15 with watching his Vanco trough and kidney function closely 2-patient will likely need a PICC line for outpatient IV antibiotic therapy that was replaced once his blood cultures are negative 3-we will follow up on clinical condition and cultures to further adjust medication if needed Thank you for this consultation will follow this patient along with you Time with Patient: Greater than 30
[2019-04-22] MEDS: VANCOMYCIN 1,500 MG in SODIUM CHLORIDE 0.9% 250 ML IVPB SCH ×2 (09:11→16:03)
[2019-04-22] MEDS: NICOTINE 21MG/24HR PATCH TRANSDERM SCH (09:11)
[2019-04-22] MEDS: RIVAROXABAN 20 MG TAB PO SCH (09:12)
[2019-04-22] MEDS: DILTIAZEM CD 120 MG CAP.ER.24H PO SCH (09:12)
[2019-04-22] MEDS: POTASSIUM CHLORIDE ER 10 MEQ TAB.ER.PRT PO SCH (09:13)
[2019-04-22] MEDS: FUROSEMIDE 20 MG TAB PO SCH ×2 (09:17→20:00)
--- NOTE | 2019-04-22 12:22 | P.PN ---
Subjective 53-year-old the is admitted for left N by bursitis possibility with possibility of septic arthritis patient underwent incision and drainage and irrigation and awaiting labs from his fluid from left olecranon bursa. Patient is presently on IV vancomycin. Patient does have history of COPD chronic respiratory failure on sent dependent on 4 L at home. Constitutional: Denied any fatigue denied any fever. Cardio vascular: denied any chest pain, palpitations Gastrointestinal denied any nausea vomiting Pulmonary: Denied any shortness of breath cough Neurologic denied any new focal deficits All inpatient medications were reviewed and appropriate changes in these medications as dictated in the interval history and assessment and plan. Objective - Vital Signs Vital signs: Vital Signs Temp 98.4 F 04/22/19 07:00 Pulse 100 04/22/19 12:12 Resp 15 04/22/19 07:00 BP 125/76 04/22/19 07:00 Pulse Ox 96 04/22/19 07:00 Intake & Output 04/21/19 04/22/19 04/22/19 18:59 06:59 18:59 Intake Total 1581 120 Output Total 5 Balance 1576 120 Intake: IV 501 Oral 1080 120 Output: Estimated Blood Loss 5 Other: Voiding Method Toilet Toilet # Voids 2 1 - Exam PHYSICAL EXAMINATION: GENERAL: The patient is alert and oriented x3, not in any acute distress. Well developed, well nourished. HEENT: Pupils are round and equally reacting to light. EOMI. No scleral icterus. No conjunctival pallor. Normocephalic, atraumatic. No pharyngeal erythema. No thyromegaly. CARDIOVASCULAR: S1 and S2 present. No murmurs, rubs, or gallops. PULMONARY: Chest is clear to auscultation, no wheezing or crackles. ABDOMEN: Soft, nontender, nondistended, normoactive bowel sounds. No palpable organomegaly. MUSCULOSKELETAL: left elbow post surgical packing EXTREMITIES: No cyanosis, clubbing, or pedal edema. NEUROLOGICAL: Gross neurological examination did not reveal any focal deficits. SKIN: No rashes. - Labs CBC & Chem 7: 04/21/19 05:02 04/21/19 05:02 Labs: Microbiology - Last 24 Hours (Table) 04/21/19 10:50 Gram Stain - Preliminary Elbow - Left Wound Culture - Preliminary 04/21/19 10:51 Gram Stain - Preliminary Elbow - Left Wound Culture - Preliminary 04/21/19 05:02 Blood Culture - Preliminary Blood No Growth after 24 hours 04/21/19 10:51 Anaerobic Culture - Preliminary Elbow - Left 04/21/19 10:50 Anaerobic Culture - Preliminary Elbow - Left 04/21/19 10:51 Fungal Culture - Preliminary Elbow - Left 04/21/19 10:50 Fungal Culture - Preliminary Elbow - Left Assessment and Plan Plan: -left-sided olecranon bursitis with the possibility of septic arthritis cannot be ruled out: Continue with vancomycin awaiting wound cultures -COPD without any significant exacerbation apparently had some exacerbation on admission patient will be continued on his home medications patient has chronic hypercapnic respiratory failure also dependent on 4 L -DVT PE on Xarelto -Depression -History of asthma -Possible chronic diastolic dysfunction without any acute exacerbation at this time.
--- NOTE | 2019-04-22 12:40 | P.PN ---
Subjective Progress Note Date: 04/22/19 Principal diagnosis: Status post arthrotomy left elbow with incision and drainage and irrigation and debridement Patient evaluated at bedside today, he is resting comfortably. He notes to minimal soreness of the elbow. He notes improvement with pain and motion since surgery. Denies any current fevers or chills. Objective - Vital Signs Vital signs: Vital Signs Temp 98.4 F 04/22/19 07:00 Pulse 100 04/22/19 12:12 Resp 15 04/22/19 07:00 BP 125/76 04/22/19 07:00 Pulse Ox 96 04/22/19 07:00 Intake & Output 04/21/19 04/22/19 04/22/19 18:59 06:59 18:59 Intake Total 1581 120 Output Total 5 Balance 1576 120 Intake: IV 501 Oral 1080 120 Output: Estimated Blood Loss 5 Other: Voiding Method Toilet Toilet # Voids 2 1 - Exam Left upper extremity: Postoperative bandage was removed. Incision is clean, dry and intact, stitches are in good position. Minimal swelling present around the elbow. I am able to actively move the elbow from -20 of extension to about 60 of flexion with minimal discomfort, pronation and supination are intact. Sensation to light touch throughout the extremities intact. Radial pulses 2+. - Labs CBC & Chem 7: 04/21/19 05:02 04/21/19 05:02 Labs: Microbiology - Last 24 Hours (Table) 04/21/19 10:50 Gram Stain - Preliminary Elbow - Left Wound Culture - Preliminary 04/21/19 10:51 Gram Stain - Preliminary Elbow - Left Wound Culture - Preliminary 04/21/19 05:02 Blood Culture - Preliminary Blood No Growth after 24 hours 04/21/19 10:51 Anaerobic Culture - Preliminary Elbow - Left 04/21/19 10:50 Anaerobic Culture - Preliminary Elbow - Left 04/21/19 10:51 Fungal Culture - Preliminary Elbow - Left 04/21/19 10:50 Fungal Culture - Preliminary Elbow - Left Assessment and Plan Plan: Assessment: Postoperative day #1 status post arthrotomy left elbow with incision and drainage and irrigation and debridement Plan: Pain control, continue oral medication as needed GI and DVT prophylaxis, resume home Xarelto dose Daily dressing changes Encourage the patient to actively extend and flex the elbow, no need for sling at this time No evidence of infected olecranon bursa, infection involving left elbow joint Medical specialty recommendations Awaite culture and sensitivity Time with Patient: Less than 30
[2019-04-22] MEDS ORDERED: VANCOMYCIN TROUGH DUE 1 EACH MISC MISCELLANE ONE (15:00)
[2019-04-22 16:35] LABS: Basophils # (A) 0.1 k/uL (0-0.2); Basophils % (A) 1 %; Eosinophils # (A) 0.4 k/uL (0-0.7); Eosinophils % (A) 4 %; HCT 49.5 % (39.0-53.0); HGB 15.4 gm/dL (13.0-17.5); Hypochromasia Slight; Lymphocytes # (A) 3.2 k/uL (1.0-4.8); Lymphocytes % (A) 29 %; MCH 28.8 pg (25.0-35.0); MCHC 31.1 g/dL (31.0-37.0); MCV 92.7 fL (80.0-100.0); Mean Platelet Volume 6.5; Monocytes # (A) 0.6 k/uL (0-1.0); Monocytes % (A) 6 %; Neutrophils # (A) 6.7 k/uL (1.3-7.7); Neutrophils % (A) 60 %; Platelet Count 270 k/uL (150-450); RBC 5.34 m/uL (4.30-5.90); WBC 11.1 k/uL (3.8-10.6)
[2019-04-22 17:09] LABS: African American GFR (CKD) >90 (>60 ml/min/1.73 sqM); Anion Gap 5 mmol/L; Blood Urea Nitrogen 14 mg/dL (9-20); Carbon Dioxide 39 mmol/L (22-30); Chloride 95 mmol/L (98-107); Glucose 113 mg/dL (74-99); Potassium 4.7 mmol/L (3.5-5.1); Sodium 139 mmol/L (137-145)
--- NOTE | 2019-04-22 19:47 | PN ---
PROGRESS NOTE DATE OF SERVICE: 04/22/2019. REASON FOR FOLLOWUP: Left elbow olecranon bursitis/septic arthritis. INTERVAL HISTORY: The patient is currently afebrile. He currently denies any worsening pain to the left elbow area. No chest pain or shortness of breath. He did have some cough from his COPD. No nausea. No vomiting. No abdominal pain or diarrhea. PHYSICAL EXAMINATION: Blood pressure 131/72 with a pulse of 101, temperature 98.2. He is 92% on 4 L nasal cannula. General description is a middle-aged male up in the bed in no distress. RESPIRATORY SYSTEM: Unlabored breathing. Clear to auscultation anteriorly. HEART: S1, S2. Regular rate and rhythm. ABDOMEN: Soft. No tenderness. Left elbow is currently dressed up. No obvious drainage on the dressing. LABS: Cultures are currently pending. No new labs were done today. DIAGNOSTIC IMPRESSION AND PLAN: Patient admitted to hospital with left elbow pain, swelling, with concern about possible septic arthritis/olecranon bursitis, status post bursectomy. We are waiting for the culture to finalize to determine discharge antibiotics. Continue with supportive care. MMODL / IJN: [id number] /
[2019-04-23] MEDS: VANCOMYCIN 1,000 MG in SODIUM CHLORIDE 0.9% 250 ML IVPB SCH ×3 (00:08→15:10)
[2019-04-23] MEDS: IPRATROPIUM-ALBUTEROL 3 ML NEB INHALATION SCH ×6 (03:37→22:02)
[2019-04-23] MEDS: DILTIAZEM CD 120 MG CAP.ER.24H PO SCH (07:30)
[2019-04-23] MEDS: FUROSEMIDE 20 MG TAB PO SCH ×2 (07:30→20:44)
[2019-04-23] MEDS: POTASSIUM CHLORIDE ER 10 MEQ TAB.ER.PRT PO SCH (07:30)
[2019-04-23] MEDS: NICOTINE 21MG/24HR PATCH TRANSDERM SCH (07:31)
[2019-04-23] MEDS: RIVAROXABAN 20 MG TAB PO SCH (07:31)
[2019-04-23] MEDS: HYDROcodone/APAP 7.5-325MG 1 EACH TAB PO PRN ×2 (07:40→18:28)
[2019-04-23 11:27] LABS: HCT 42.1 % (39.0-53.0); Hypochromasia Slight; MCH 28.4 pg (25.0-35.0); MCV 91.6 fL (80.0-100.0); Platelet Count 256 k/uL (150-450); RBC 4.59 m/uL (4.30-5.90); RDW 13.4 % (11.5-15.5); WBC 9.8 k/uL (3.8-10.6)
--- NOTE | 2019-04-23 11:33 | P.PN ---
Subjective Progress Note Date: 04/23/19 Principal diagnosis: Status post arthrotomy left elbow with incision and drainage and irrigation and debridement Patient evaluated at bedside today, he is resting comfortably. He notes to minimal soreness of the elbow. He notes improvement with pain and motion since surgery. Denies any current fevers or chills. Objective - Vital Signs Vital signs: Vital Signs Temp 98.7 F 04/23/19 06:47 Pulse 100 04/23/19 11:29 Resp 16 04/23/19 06:47 BP 133/84 04/23/19 06:47 Pulse Ox 92 L 04/23/19 06:47 Intake & Output 04/22/19 04/23/19 04/23/19 18:59 06:59 18:59 Intake Total 200 240 Balance 200 240 Intake: Oral 200 240 Other: Voiding Method Toilet Toilet # Voids 2 2 - Exam Left upper extremity: Incision is clean, dry and intact, stitches are in good position. Minimal swelling present around the elbow. Sensation to light touch throughout the extremities intact. Radial pulses 2+. - Labs CBC & Chem 7: 04/23/19 10:43 04/22/19 16:16 Labs: Abnormal Lab Results - Last 24 Hours (Table) 04/22/19 04/22/19 Range/Units 16:16 16:16 WBC 11.1 H (3.8-10.6) k/uL Chloride 95 L (98-107) mmol/L Carbon Dioxide 39 H (22-30) mmol/L Glucose 113 H (74-99) mg/dL Microbiology - Last 24 Hours (Table) 04/21/19 10:50 Gram Stain - Final Elbow - Left Wound Culture - Final 04/21/19 10:51 Gram Stain - Final Elbow - Left Wound Culture - Final 04/21/19 05:02 Blood Culture - Preliminary Blood No Growth after 48 hours Assessment and Plan Plan: Assessment: Postoperative day #2 status post arthrotomy left elbow with incision and drainage and irrigation and debridement Plan: Pain control, continue oral medication as needed GI and DVT prophylaxis, resume home Xarelto dose Daily dressing changes Encourage the patient to actively extend and flex the elbow, no need for sling at this time No evidence of infected olecranon bursa, infection involving left elbow joint Medical specialty recommendations Awaite culture and sensitivity Time with Patient: Less than 30
[2019-04-23 11:37] LABS: African American GFR (CKD) >90 (>60 ml/min/1.73 sqM); Anion Gap 3 mmol/L; Blood Urea Nitrogen 10 mg/dL (9-20); Calcium 8.6 mg/dL (8.4-10.2); Carbon Dioxide 39 mmol/L (22-30); Chloride 95 mmol/L (98-107); Glucose 99 mg/dL (74-99); Potassium 4.4 mmol/L (3.5-5.1); Sodium 137 mmol/L (137-145)
--- NOTE | 2019-04-23 14:38 | P.PN ---
Subjective 53-year-old the is admitted for left N by bursitis possibility with possibility of septic arthritis patient underwent incision and drainage and irrigation and awaiting labs from his fluid from left olecranon bursa. Patient is presently on IV vancomycin. Patient does have history of COPD chronic respiratory failure on sent dependent on 4 L at home. 04/23/2019 I do not have any sign no we'll fluid labs available at this time so far several fluid cultures are negative, although septic bursitis and septic arthritis cannot be ruled out there is no evidence of that either. We will await for the finalization of the wound cultures Constitutional: Denied any fatigue denied any fever. Cardio vascular: denied any chest pain, palpitations Gastrointestinal denied any nausea vomiting Pulmonary: Denied any shortness of breath cough Neurologic denied any new focal deficits All inpatient medications were reviewed and appropriate changes in these medications as dictated in the interval history and assessment and plan. Objective - Vital Signs Vital signs: Vital Signs Temp 98.0 F 04/23/19 14:24 Pulse 97 04/23/19 14:24 Resp 20 04/23/19 14:24 BP 124/73 04/23/19 14:24 Pulse Ox 92 L 04/23/19 14:24 Intake & Output 04/22/19 04/23/19 04/23/19 18:59 06:59 18:59 Intake Total 200 240 Balance 200 240 Intake: Oral 200 240 Other: Voiding Method Toilet Toilet # Voids 2 2 4 - Exam PHYSICAL EXAMINATION: GENERAL: The patient is alert and oriented x3, not in any acute distress. Well developed, well nourished. HEENT: Pupils are round and equally reacting to light. EOMI. No scleral icterus. No conjunctival pallor. Normocephalic, atraumatic. No pharyngeal erythema. No thyromegaly. CARDIOVASCULAR: S1 and S2 present. No murmurs, rubs, or gallops. PULMONARY: Chest is clear to auscultation, no wheezing or crackles. ABDOMEN: Soft, nontender, nondistended, normoactive bowel sounds. No palpable organomegaly. MUSCULOSKELETAL: left elbow post surgical packing EXTREMITIES: No cyanosis, clubbing, or pedal edema. NEUROLOGICAL: Gross neurological examination did not reveal any focal deficits. SKIN: No rashes. - Labs CBC & Chem 7: 04/23/19 10:43 04/23/19 10:43 Labs: Abnormal Lab Results - Last 24 Hours (Table) 04/22/19 04/22/19 04/23/19 Range/Units 16:16 16:16 10:43 WBC 11.1 H (3.8-10.6) k/uL Chloride 95 L 95 L (98-107) mmol/L Carbon Dioxide 39 H 39 H (22-30) mmol/L Creatinine 0.62 L (0.66-1.25) mg/dL Glucose 113 H (74-99) mg/dL Microbiology - Last 24 Hours (Table) 04/21/19 10:50 Gram Stain - Final Elbow - Left Wound Culture - Final 04/21/19 10:51 Gram Stain - Final Elbow - Left Wound Culture - Final 04/21/19 05:02 Blood Culture - Preliminary Blood No Growth after 48 hours Assessment and Plan Plan: -left-sided olecranon bursitis with the possibility of septic arthritis cannot be ruled out: Continue with vancomycin awaiting wound cultures -COPD without any significant exacerbation apparently had some exacerbation on admission patient will be continued on his home medications patient has chronic hypercapnic respiratory failure also dependent on 4 L -DVT PE on Xarelto -Depression -History of asthma -Possible chronic diastolic dysfunction without any acute exacerbation at this time.
--- NOTE | 2019-04-23 18:43 | PN ---
PROGRESS NOTE DATE OF SERVICE: 04/23/2019. REASON FOR FOLLOWUP: Left elbow question of septic olecranon bursitis versus arthritis. INTERVAL HISTORY: The patient is currently afebrile. The patient is breathing comfortably. Pain to the left elbow is currently controlled. Denies having any chest pain, shortness of breath or cough. No abdominal pain or diarrhea. PHYSICAL EXAMINATION: Blood pressure 124/73 with a pulse of 97, temperature 98. He is 92% on 4 L nasal cannula. General description is a middle-aged male up in the bed in no distress. RESPIRATORY SYSTEM: Unlabored breathing. Clear to auscultation. HEART: S1, S2. Regular rate and rhythm. ABDOMEN: Soft. No tenderness. LEFT ELBOW: Incision . No swelling, redness or any drainage. LABS: White count normal at 9.8 with a BUN of 10, creatinine 0.62. Uric acid level is 3.7. Culture so far negative. DIAGNOSTIC IMPRESSION AND PLAN: Patient admitted to hospital with left elbow pain, swelling and redness with concern about septic olecranon bursitis. The patient is status post left elbow bursectomy and cultures. Those remain to be negative. If the cultures remain negative by tomorrow, we will be able to give a short course of oral antibiotics to be on the safe side. No need for PICC line for outpatient IV antibiotic therapy. Plan of care was discussed in detail with . JAQUELIN / ZANEN: [id number] /
[2019-04-23] MEDS: IBUPROFEN 400 MG TAB PO PRN (20:44)
[2019-04-23] MEDS: MORPHINE SULFATE 4 MG/ML SYRINGE IV PRN (22:10)
[2019-04-24] MEDS: HYDROcodone/APAP 7.5-325MG 1 EACH TAB PO PRN ×2 (00:48→06:25)
[2019-04-24] MEDS: VANCOMYCIN 1,000 MG in SODIUM CHLORIDE 0.9% 250 ML IVPB SCH ×2 (00:50→08:57)
[2019-04-24] MEDS: IPRATROPIUM-ALBUTEROL 3 ML NEB INHALATION SCH ×2 (03:29→07:17)
[2019-04-24 06:32] VITALS: BP 115/74; PULSE 94; RESP 18; TEMP 97.8
[2019-04-24] MEDS ORDERED: VANCOMYCIN TROUGH DUE 1 EACH MISC MISCELLANE ONE (07:00)
[2019-04-24] MEDS: NICOTINE 21MG/24HR PATCH TRANSDERM SCH (07:18)
[2019-04-24] MEDS: FUROSEMIDE 20 MG TAB PO SCH (07:18)
[2019-04-24] MEDS: POTASSIUM CHLORIDE ER 10 MEQ TAB.ER.PRT PO SCH (07:18)
[2019-04-24] MEDS: IBUPROFEN 400 MG TAB PO PRN (07:18)
[2019-04-24] MEDS: RIVAROXABAN 20 MG TAB PO SCH (07:19)
[2019-04-24] MEDS: DILTIAZEM CD 120 MG CAP.ER.24H PO SCH (07:19)
--- NOTE | 2019-04-24 10:14 | PN ---
PROGRESS NOTE DATE OF SERVICE: 04/24/2019. REASON FOR FOLLOWUP: Left elbow question of olecranon bursitis septic. INTERVAL HISTORY: The patient was seen on round this morning. The patient has been afebrile. Pain to the left elbow is currently controlled. Denies having any chest pain or any cough. No abdominal pain. No diarrhea. PHYSICAL EXAMINATION: On examination, blood pressure 115/74 with a pulse of 94, temperature 97.8. He is 91% on 4 L nasal cannula. General description is a middle-aged male lying in bed in no distress. RESPIRATORY SYSTEM: Unlabored breathing, clear to auscultation anteriorly. HEART: S1, S2. Regular rate and rhythm. ABDOMEN: Soft, nontender. Left elbow is currently dressed up with no obvious drainage on the dressing. LABS: Vanco trough was 9.1. Culture from the left elbow remains to be negative. DIAGNOSTIC IMPRESSION AND PLAN: Patient with left elbow pain, swelling, redness with concern for possible olecranon bursitis septic, status post debridement. Culture negative. Will switch him to short course of oral doxycycline. Prescription sent to the pharmacy. Follow up in the office in 1 week. MMODL / IJN: [id number] /
--- NOTE | 2019-04-24 15:24 | P.DS ---
Providers Date of admission: 04/23/19 14:00 Expected date of discharge: 04/24/19 Attending physician: Leti Siddiqui Consults: 04/21/19 05:59 Consult Physician Urgent Consulting Provider: [facility] Consult Reason/Comments: possible septic joint Do you want consulting provider notified?: Yes, Notify in am 04/21/19 11:10 Consult Physician Routine Consulting Provider: Dalton Elmore Consult Reason/Comments: septic left elbow arthropathy, s/p I&D Do you want consulting provider notified?: Yes Primary care physician: Vic Serna [facility] Course: Final diagnosis Left elbow olecranon bursitis with the possibility of septic arthritis COPD without any significant exacerbations History of depression History of asthma Possible chronic diastolic dysfunction without any acute exacerbations at this time DVT PE, on Xarelto Discharge disposition The patient is being discharged in a stable condition with guarded prognosis to home with a one-week course of oral antibiotics per Dr. Elmore and instructed to follow-up as discussed. History of present illness This is a 53-year-old male that was admitted to the hospital with left elbow pain and swelling. An I&D with irrigation and specimen collection of the left elbow was performed. At this time cultures remain negative and infectious disease is aware. Patient denies any shortness of breath, chest pain, fever, or palpitations at this time and looking forward to going home. Family is at the bedside and is agreeable to the plan. On exam vital signs are stable. Cardio S1 and S2 heard. Regular rate and rhythm. Respiratory is clear to auscultation with no wheezing or crackles noted. Abdomen is soft and non-tender. Nervous system shows no new focal deficits and gait is steady Please refer to the medication reconciliation sheet for list of medications Patient Condition at Discharge: Good Plan - Discharge Summary Discharge Rx Participant: No New Discharge Prescriptions: New Doxycycline [Vibramycin] 100 mg PO BID #14 cap Continue Albuterol Inhaler [Ventolin Hfa Inhaler] 1 - 2 puff INHALATION RT-Q6H PRN PRN Reason: sob Rivaroxaban [Xarelto] 20 mg PO DAILY Potassium Chloride ER [K-Dur 10] 10 meq PO DAILY Furosemide [Lasix] 20 mg PO BID Diltiazem Cd [Cardizem CD] 120 mg PO DAILY Albuterol Nebulized [Ventolin Nebulized] 2.5 mg INHALATION RT-QID PRN PRN Reason: Shortness Of Breath Discharge Medication List Albuterol Inhaler [Ventolin Hfa Inhaler] 1 - 2 puff INHALATION RT-Q6H PRN 08/01/17 [History] Furosemide [Lasix] 20 mg PO BID 08/01/17 [History] Potassium Chloride ER [K-Dur 10] 10 meq PO DAILY 08/01/17 [History] Rivaroxaban [Xarelto] 20 mg PO DAILY 08/01/17 [History] Albuterol Nebulized [Ventolin Nebulized] 2.5 mg INHALATION RT-QID PRN 04/21/19 [History] Diltiazem Cd [Cardizem CD] 120 mg PO DAILY 04/21/19 [History] Doxycycline [Vibramycin] 100 mg PO BID #14 cap 04/24/19 [Rx] Follow up Appointment(s)/Referral(s): Kareem Ho MD [Primary Care Provider] - 04/30/19 10:10 am Memo Smith PAC [PHYSICIAN LEGAL FINANCIAL SPECIALIST] - 05/08/19 3:30 pm (Please bring insurance card and ID) Dalton Elmore MD [STAFF PHYSICIAN] - 04/30/19 3:30 pm Patient Instructions/Handouts: How to Stop Smoking (DC), Incision and Drainage (ED) Activity/Diet/Wound Care/Special Instructions: Orthopedic Discharge Instructions: 1. Keep incision dry and covered 2. Do no remove stitches 3. Keep incision covered while showering 4. Follow up in 2 weeks for staple removal Discharge Disposition: HOME SELF-CARE
== END 2019-04-24 09:26 | disposition home or self-care (01) | DRG 511 ==
LOC: EC 04:39 → 4SSUR 05:59 → 4MS4W 04-22 15:50 → OBSVTOIN 04-23 14:00
PROVIDERS: ADMIT Hospitalist; ATTEND Hospitalist
PROC: 0RBM0ZZ Excision of Left Elbow Joint, Open Approach (ICD-10-PCS; principal; 2019-04-21 08:44)
DX: M70.22 Olecranon bursitis, left elbow (principal); M00.9 Pyogenic arthritis, unspecified; I50.32 Chronic diastolic (congestive) heart failure; J44.1 Chronic obstructive pulmonary disease with (acute) exacerbation; J96.12 Chronic respiratory failure with hypercapnia; F17.200 Nicotine dependence, unspecified, uncomplicated; F32.9 Major depressive disorder, single episode, unspecified; Z99.81 Dependence on supplemental oxygen; Z88.0 Allergy status to penicillin; Z86.718 Personal history of other venous thrombosis and embolism; Z86.711 Personal history of pulmonary embolism; Z86.14 Personal history of Methicillin resistant Staphylococcus aureus infection; Z79.01 Long term (current) use of anticoagulants; Z79.899 Other long term (current) drug therapy
CPT/HCPCS: 36415; 80048; 80053; 80202; 82550; 83605; 84550; 85025; 85027; 85610; 85652; 85730; 86140; 87040; 87070; 87075; 87102; 87205; 93005; 94640; 94760; 96365; 96375; 99284

== ENCOUNTER 2019-04-25 19:31 | Emergency (ER) | payer MEDICARE ==
[2019-04-25 19:40] VITALS: TEMP 98.7
[2019-04-25] MEDS ORDERED: HYDROmorphone 1 MG/ML 1 ML SYRINGE IVP STA (20:06)
[2019-04-25] MEDS ORDERED: ONDANSETRON 4 MG/2 ML VIAL IVP STA (20:06)
--- NOTE | 2019-04-25 20:14 | ED ---
General Adult HPI - General Chief complaint: Extremity Injury, Upper Stated complaint: Swollen hand, arm pain, surgery on monday Time Seen by Provider: 04/25/19 19:43 Source: patient Mode of arrival: ambulatory Limitations: no limitations - History of Present Illness Initial comments: 53-year-old male patient presents to the emergency department today for evaluation of left arm pain and swelling. The patient states that he was evaluated on 04/22/2019 for possible septic arthritis of the left elbow. Patient states he was admitted to the hospital and did have a surgical intervention performed on 04/22/2019. Patient states today he is having increa sed swelling to the left hand and also increased pain from the elbow down to the hand. Patient states he has been taking Motrin for pain but denies any relief from this. Denies any use of other pain medications. Patient denies any drainage from the incision site. Patient does takes a relative for history of DVT and has been taking this as directed. Denies any numbness or tingling to the hand. Denies any fever or chills. Patient denies any recent rash, shortness breath, chest pain, abdominal pain, nausea, vomiting, diarrhea, constipation, back pain, dizziness, weakness, hematuria, dysuria, urinary urgency, urinary frequency, headache, visual changes, or any other complaints. - Related Data Home Medications Medication Instructions Recorded Confirmed Albuterol Inhaler [Ventolin Hfa 1 - 2 puff INHALATION RT-Q6H PRN 08/01/17 04/25/19 Inhaler] Furosemide [Lasix] 20 mg PO BID 08/01/17 04/25/19 Potassium Chloride ER [K-Dur 10] 10 meq PO DAILY 08/01/17 04/25/19 Rivaroxaban [Xarelto] 20 mg PO DAILY 08/01/17 04/25/19 Albuterol Nebulized [Ventolin 2.5 mg INHALATION RT-QID PRN 04/21/19 04/25/19 Nebulized] Diltiazem Cd [Cardizem CD] 120 mg PO DAILY 04/21/19 04/25/19 Montelukast [Singulair] 10 mg PO HS 04/25/19 04/25/19 Previous Rx's Medication Instructions Recorded Doxycycline [Vibramycin] 100 mg PO BID #14 cap 04/24/19 HYDROcodone/APAP 7.5-325MG [Warrens 1 tab PO Q6H PRN 3 Days #12 tab 04/25/19 7.5-325] Allergies Allergy/AdvReac Type Severity Reaction Status Date / Time Penicillins Allergy Anaphylaxis Verified 04/25/19 19:55 Review of Systems ROS Statement: Those systems with pertinent positive or pertinent negative responses have been documented in the HPI. ROS Other: All systems not noted in ROS Statement are negative. Past Medical History Past Medical History: Asthma, Heart Failure, COPD, Deep Vein Thrombosis (DVT) Additional Past Medical History / Comment(s): depression,PE History of Any Multi-Drug Resistant Organisms: MRSA Date of last positivie culture/infection: 07/27/2014 MDRO Source:: Left leg Past Surgical History: Tonsillectomy Additional Past Surgical History / Comment(s): unknown left elbow surgery Past Psychological History: Depression Smoking Status: Current every day smoker Past Alcohol Use History: None Reported Past Drug Use History: None Reported - Past Family History Father Additional Family Medical History / Comment(s): blood clot Mother Family Medical History: Cancer General Exam Limitations: no limitations General appearance: alert, in no apparent distress, other (Physical well- developed, well-nourished adult male patient in no acute distress. Vital signs upon presentation are temperature 98.7F, pulse 111, respirations 22, blood pressure 125/71, pulse ox 87% on 4 L.) Respiratory exam: Present: normal lung sounds bilaterally. Absent: respiratory distress, wheezes, rales, rhonchi, stridor Cardiovascular Exam: Present: regular rate, normal rhythm, normal heart sounds. Absent: systolic murmur, diastolic murmur, rubs, gallop, clicks Extremities exam: Present: full ROM, normal capillary refill, other (Patient has swelling from the left elbow down the forearm and into the left hand. Nonpitting. Patient has an incision to the left lateral elbow that is intact with sutures. Well approximated. No drainage. Some warmth but no erythema.). Absent: normal inspection, tenderness, pedal edema, joint swelling, calf tenderness Neurological exam: Present: alert, oriented X3, CN II-XII intact Psychiatric exam: Present: normal affect, normal mood Skin exam: Present: warm, dry, intact, normal color. Absent: rash Course Vital Signs 04/25/19 04/25/19 04/25/19 19:36 21:14 22:29 Temperature 98.7 F Pulse Rate 111 H 100 106 H Respiratory 22 20 18 Rate Blood Pressure 125/71 141/96 118/77 O2 Sat by Pulse 87 L 93 L 95 Oximetry Medical Decision Making - Medical Decision Making 53-year-old male patient who is status post washout of the left elbow due to septic arthritis 4 days ago presents to the emergency department today for evaluation of left arm swelling and pain. Physical examination reveals nonpitting edema to the left arm from the elbow to the hand. Neurovascular status is intact with good radial pulse and cap refill. Incision is evaluated as well approximated with sutures. There is no erythema or purulent drainage. Patient does take xarelto and has been taking this as directed. States he was n ot discharged with any pain medication. He was given pain medication here in the emergency department, this has improved symptoms. Labs reviewed and did reveal a normal white blood cell count. Suspicion for infection is low as he is taking antibiotics and there is no erythema to the arm. He is afebrile. He does admit that he has not been elevating the arm after surgery which is causing the edema. He'll be given a prescription for pain medication. He is instructed to rest and elevate the arm. He is instructed to follow-up with his art specialist for further evaluation as soon as possible. Return parameters were discussed in detail. He verbalizes understanding and agrees with this plan - Lab Data Result diagrams: 04/25/19 20:31 04/25/19 20:31 Lab Results 04/25/19 04/25/19 Range/Units 20:31 20:31 WBC 9.6 (3.8-10.6) k/uL RBC 5.25 (4.30-5.90) m/uL Hgb 14.8 (13.0-17.5) gm/dL Hct 47.4 (39.0-53.0) % MCV 90.4 (80.0-100.0) fL MCH 28.2 (25.0-35.0) pg MCHC 31.2 (31.0-37.0) g/dL RDW 14.0 (11.5-15.5) % Plt Count 249 (150-450) k/uL Neutrophils % 60 % Lymphocytes % 28 % Monocytes % 6 % Eosinophils % 4 % Basophils % 1 % Neutrophils # 5.8 (1.3-7.7) k/uL Lymphocytes # 2.6 (1.0-4.8) k/uL Monocytes # 0.5 (0-1.0) k/uL Eosinophils # 0.4 (0-0.7) k/uL Basophils # 0.1 (0-0.2) k/uL Hypochromasia Slight Sodium 143 (137-145) mmol/L Potassium 4.2 (3.5-5.1) mmol/L Chloride 98 (98-107) mmol/L Carbon Dioxide 37 H (22-30) mmol/L Anion Gap 8 mmol/L BUN 17 (9-20) mg/dL Creatinine 0.58 L (0.66-1.25) mg/dL Est GFR (CKD-EPI)AfAm >90 (>60 ml/min/1.73 sqM) Est GFR (CKD-EPI)NonAf >90 (>60 ml/min/1.73 sqM) Glucose 112 H (74-99) mg/dL Calcium 9.6 (8.4-10.2) mg/dL Total Bilirubin 0.2 (0.2-1.3) mg/dL AST 28 (17-59) U/L ALT 34 (21-72) U/L Alkaline Phosphatase 70 (38-126) U/L Total Protein 6.5 (6.3-8.2) g/dL Albumin 3.9 (3.5-5.0) g/dL Disposition Clinical Impression: Pain and swelling of left upper extremity Disposition: HOME SELF-CARE Condition: Good Instructions (If sedation given, give patient instructions): Edema (ED) Additional Instructions: Keep the left arm elevated. Take pain medication as directed. Follow-up with your primary care physician for recheck in 1-2 days. Call your orthopedic surgeon and CT negative sooner appointment for reevaluation. Return to the emergency department immediately for any new, worsening, or concerning symptoms. Prescriptions: HYDROcodone/APAP 7.5-325MG [Warrens 7.5-325] 1 tab PO Q6H PRN 3 Days #12 tab PRN Reason: Pain Is patient prescribed a controlled substance at d/c from ED?: No Referrals: Kareem Ho MD [Primary Care Provider] - 1-2 days Time of Disposition: 21:39
[2019-04-25 20:48] LABS: Basophils # (A) 0.1 k/uL (0-0.2); Basophils % (A) 1 %; Eosinophils # (A) 0.4 k/uL (0-0.7); Eosinophils % (A) 4 %; HCT 47.4 % (39.0-53.0); HGB 14.8 gm/dL (13.0-17.5); Hypochromasia Slight; Lymphocytes # (A) 2.6 k/uL (1.0-4.8); Lymphocytes % (A) 28 %; MCH 28.2 pg (25.0-35.0); MCHC 31.2 g/dL (31.0-37.0); MCV 90.4 fL (80.0-100.0); Mean Platelet Volume 7.1; Monocytes # (A) 0.5 k/uL (0-1.0); Monocytes % (A) 6 %; Neutrophils # (A) 5.8 k/uL (1.3-7.7); Neutrophils % (A) 60 %; Platelet Count 249 k/uL (150-450); RBC 5.25 m/uL (4.30-5.90); WBC 9.6 k/uL (3.8-10.6)
[2019-04-25 20:52] LABS: ALT 34 U/L (21-72); AST 28 U/L (17-59); African American GFR (CKD) >90 (>60 ml/min/1.73 sqM); Albumin 3.9 g/dL (3.5-5.0); Alkaline Phosphatase 70 U/L (38-126); Blood Urea Nitrogen 17 mg/dL (9-20); Calcium 9.6 mg/dL (8.4-10.2); Chloride 98 mmol/L (98-107); Glucose 112 mg/dL (74-99); Potassium 4.2 mmol/L (3.5-5.1); Sodium 143 mmol/L (137-145); Total Bilirubin 0.2 mg/dL (0.2-1.3); Total Protein 6.5 g/dL (6.3-8.2)
[2019-04-25 20:59] LABS: Anion Gap 8 mmol/L; Carbon Dioxide 37 mmol/L (22-30)
[2019-04-25 22:30] VITALS: BP 118/77; PULSE 106; RESP 18
== END 2019-04-25 22:31 | disposition home or self-care (01) ==
LOC: EC 19:31
DX: M79.89 Other specified soft tissue disorders (principal); M79.602 Pain in left arm; J44.9 Chronic obstructive pulmonary disease, unspecified; I50.9 Heart failure, unspecified; F17.200 Nicotine dependence, unspecified, uncomplicated; Z86.718 Personal history of other venous thrombosis and embolism; Z86.711 Personal history of pulmonary embolism; Z86.14 Personal history of Methicillin resistant Staphylococcus aureus infection; Z79.01 Long term (current) use of anticoagulants; Z79.899 Other long term (current) drug therapy; Z88.0 Allergy status to penicillin; Z98.890 Other specified postprocedural states
CPT/HCPCS: 36415; 80053; 85025; 99283; 96374; 96375; J2405; J1170

== ENCOUNTER 2019-06-23 12:33 | Inpatient (IN) | payer MEDICARE ==
[2019-06-23] MEDS ORDERED: MAGNESIUM SULFATE-D5W PMX 1 GM in DEXTROSE/WATER 1 100ML.BAG IVPB STA (12:46)
[2019-06-23] MEDS ORDERED: IPRATROPIUM 0.5 MG/2.5 ML NEBU INHALATION STA (12:46)
[2019-06-23] MEDS ORDERED: methylPREDNISolone SOD SUCCI 125 MG/2 ML VIAL IV STA (12:46)
[2019-06-23] MEDS ORDERED: ALBUTEROL NEBULIZED 2.5 MG/3 ML INHALATION STA (12:46)
--- NOTE | 2019-06-23 12:48 | ED ---
SOB HPI - General Chief Complaint: Shortness of Breath Stated Complaint: Sob Time Seen by Provider: 06/23/19 12:40 Source: patient Mode of arrival: ambulatory - History of Present Illness Initial Comments: Patient complains of shortness of breath. He has a history of COPD. He has no chest pain or pressure. He has no belly or back pain. He has no nausea or vomiting or diaphoresis. He used his medications at home. They did not help much. He has no lightheadedness or dizziness. Nothing specifically makes his symptoms better or worse. - Related Data Home Medications Medication Instructions Recorded Confirmed Albuterol Inhaler [Ventolin Hfa 1 - 2 puff INHALATION RT-Q6H PRN 08/01/17 06/23/19 Inhaler] Furosemide [Lasix] 20 mg PO DAILY 08/01/17 06/23/19 Potassium Chloride ER [K-Dur 10] 10 meq PO DAILY 08/01/17 06/23/19 Rivaroxaban [Xarelto] 20 mg PO DAILY 08/01/17 06/23/19 Albuterol Nebulized [Ventolin 2.5 mg INHALATION RT-Q4H PRN 04/21/19 06/23/19 Nebulized] Diltiazem Cd [Cardizem CD] 120 mg PO DAILY 04/21/19 06/23/19 Allergies Allergy/AdvReac Type Severity Reaction Status Date / Time Penicillins Allergy Anaphylaxis Verified 06/23/19 13:26 Review of Systems ROS Statement: Those systems with pertinent positive or pertinent negative responses have been documented in the HPI. ROS Other: All systems not noted in ROS Statement are negative. Past Medical History Past Medical History: Asthma, Heart Failure, COPD, Deep Vein Thrombosis (DVT) Additional Past Medical History / Comment(s): depression,PE History of Any Multi-Drug Resistant Organisms: MRSA Date of last positivie culture/infection: 07/27/2014 MDRO Source:: Left leg Past Surgical History: Tonsillectomy Additional Past Surgical History / Comment(s): unknown left elbow surgery Past Psychological History: Depression Smoking Status: Current every day smoker Past Alcohol Use History: None Reported Past Drug Use History: None Reported - Past Family History Father Additional Family Medical History / Comment(s): blood clot Mother Family Medical History: Cancer General Exam General appearance: alert, in no apparent distress Head exam: Present: atraumatic, normocephalic, normal inspection Eye exam: Present: normal appearance, PERRL, EOMI. Absent: scleral icterus, conjunctival injection, periorbital swelling ENT exam: Present: normal exam, mucous membranes moist Neck exam: Present: normal inspection. Absent: tenderness, meningismus, lymphadenopathy Respiratory exam: Present: respiratory distress, wheezes. Absent: rales, rhonchi, stridor Cardiovascular Exam: Present: regular rate, normal rhythm, normal heart sounds. Absent: systolic murmur, diastolic murmur, rubs, gallop, clicks GI/Abdominal exam: Present: soft, normal bowel sounds. Absent: distended, tenderness, guarding, rebound, rigid Extremities exam: Present: normal inspection, full ROM, normal capillary refill. Absent: tenderness, pedal edema, joint swelling, calf tenderness Back exam: Present: normal inspection Neurological exam: Present: alert, oriented X3, CN II-XII intact Psychiatric exam: Present: normal affect, normal mood Skin exam: Present: warm, dry, intact, normal color. Absent: rash Course Vital Signs 06/23/19 06/23/19 06/23/19 12:44 13:11 13:52 Temperature 98.5 F Pulse Rate 103 H 93 91 Respiratory 25 H Rate Blood Pressure 125/86 O2 Sat by Pulse 88 L Oximetry Medical Decision Making - Medical Decision Making Patient presented with shortness of breath. He had very poor air movement bilaterally. He has not improved much after IV and nebulized treatment. Chest x-ray confirms a pneumonia. I ordered blood cultures and antibiotics. Patient will be admitted to the hospital. - Lab Data Result diagrams: 06/23/19 12:57 06/23/19 12:57 Lab Results 06/23/19 06/23/19 06/23/19 Range/Units 12:57 12:57 12:57 WBC 8.7 (3.8-10.6) k/uL RBC 5.49 (4.30-5.90) m/uL Hgb 15.8 (13.0-17.5) gm/dL Hct 50.8 (39.0-53.0) % MCV 92.7 (80.0-100.0) fL MCH 28.9 (25.0-35.0) pg MCHC 31.2 (31.0-37.0) g/dL RDW 15.0 (11.5-15.5) % Plt Count 186 (150-450) k/uL Hypochromasia Slight PT (9.0-12.0) sec INR (<1.2) APTT (22.0-30.0) sec Sodium 140 (137-145) mmol/L Potassium 4.7 (3.5-5.1) mmol/L Chloride 91 L (98-107) mmol/L Carbon Dioxide 44 H* (22-30) mmol/L Anion Gap 5 mmol/L BUN 13 (9-20) mg/dL Creatinine 0.49 L (0.66-1.25) mg/dL Est GFR (CKD-EPI)AfAm >90 (>60 ml/min/1.73 sqM) Est GFR (CKD-EPI)NonAf >90 (>60 ml/min/1.73 sqM) Glucose 98 (74-99) mg/dL Calcium 9.1 (8.4-10.2) mg/dL Magnesium 2.1 (1.6-2.3) mg/dL Total Bilirubin 0.5 (0.2-1.3) mg/dL AST 23 (17-59) U/L ALT 22 (21-72) U/L Alkaline Phosphatase 80 (38-126) U/L Troponin I (0.000-0.034) ng/mL NT-Pro-B Natriuret Pep 31 pg/mL Total Protein 7.2 (6.3-8.2) g/dL Albumin 4.3 (3.5-5.0) g/dL 06/23/19 06/23/19 Range/Units 12:57 12:57 WBC (3.8-10.6) k/uL RBC (4.30-5.90) m/uL Hgb (13.0-17.5) gm/dL Hct (39.0-53.0) % MCV (80.0-100.0) fL MCH (25.0-35.0) pg MCHC (31.0-37.0) g/dL RDW (11.5-15.5) % Plt Count (150-450) k/uL Hypochromasia PT 9.7 (9.0-12.0) sec INR 0.9 (<1.2) APTT 25.4 (22.0-30.0) sec Sodium (137-145) mmol/L Potassium (3.5-5.1) mmol/L Chloride (98-107) mmol/L Carbon Dioxide (22-30) mmol/L Anion Gap mmol/L BUN (9-20) mg/dL Creatinine (0.66-1.25) mg/dL Est GFR (CKD-EPI)AfAm (>60 ml/min/1.73 sqM) Est GFR (CKD-EPI)NonAf (>60 ml/min/1.73 sqM) Glucose (74-99) mg/dL Calcium (8.4-10.2) mg/dL Magnesium (1.6-2.3) mg/dL Total Bilirubin (0.2-1.3) mg/dL AST (17-59) U/L ALT (21-72) U/L Alkaline Phosphatase (38-126) U/L Troponin I <0.012 (0.000-0.034) ng/mL NT-Pro-B Natriuret Pep pg/mL Total Protein (6.3-8.2) g/dL Albumin (3.5-5.0) g/dL - EKG Data EKG Comments: Twelve-lead EKG shows ventricular 101 bpm, normal IL interval and Junior complex is, no ST elevation or depression, interpreted by me as sinus tachycardia. Disposition Clinical Impression: Acute exacerbation of chronic obstructive airways disease, Pneumonia Disposition: ADMITTED IP TO THIS HOSP Condition: Fair Is patient prescribed a controlled substance at d/c from ED?: No Referrals: Kareem Ho MD [Primary Care Provider] - 1-2 days
[2019-06-23 13:25] LABS: ALT 22 U/L (21-72); AST 23 U/L (17-59); African American GFR (CKD) >90 (>60 ml/min/1.73 sqM); Albumin 4.3 g/dL (3.5-5.0); Alkaline Phosphatase 80 U/L (38-126); Blood Urea Nitrogen 13 mg/dL (9-20); Calcium 9.1 mg/dL (8.4-10.2); Chloride 91 mmol/L (98-107); Glucose 98 mg/dL (74-99); Magnesium 2.1 mg/dL (1.6-2.3); Non-African American GFR(CKD) >90 (>60 ml/min/1.73 sqM); Potassium 4.7 mmol/L (3.5-5.1); Sodium 140 mmol/L (137-145); Total Bilirubin 0.5 mg/dL (0.2-1.3); Total Protein 7.2 g/dL (6.3-8.2)
--- NOTE | 2019-06-23 13:28 | XR ---
EXAMINATION TYPE: XR chest 1V portable DATE OF EXAM: 06/23/2019 COMPARISON: 03/11/2014 HISTORY: Difficulty breathing TECHNIQUE: Single frontal view of the chest is obtained. FINDINGS: There is chronic left hemidiaphragm elevation. There is a new left basilar opacity and int erstitial prominence throughout. Cardiomediastinal silhouette is within normal limits. No acute osseo us pathology. No sizable pleural effusion or pneumothorax. IMPRESSION: New left basilar opacity may represent atelectasis or pneumonia. Diffuse interstitial pr ominence may be on the basis of cardiogenic or noncardiogenic fluid overload.
[2019-06-23 13:31] LABS: Anion Gap 5 mmol/L; INR 0.9 (<1.2); Partial Thromboplastin Time 25.4 sec (22.0-30.0); Prothrombin Time 9.7 sec (9.0-12.0)
[2019-06-23 13:36] LABS: Carbon Dioxide 44 mmol/L (22-30)
[2019-06-23 13:39] LABS: HCT 50.8 % (39.0-53.0); HGB 15.8 gm/dL (13.0-17.5); Hypochromasia Slight; MCH 28.9 pg (25.0-35.0); MCHC 31.2 g/dL (31.0-37.0); MCV 92.7 fL (80.0-100.0); Mean Platelet Volume 6.8; Platelet Count 186 k/uL (150-450); RBC 5.49 m/uL (4.30-5.90); WBC 8.7 k/uL (3.8-10.6)
[2019-06-23] MEDS ORDERED: AZITHROMYCIN 500 MG in SODIUM CHLORIDE 0.9% 250 ML IVPB STA (13:54)
[2019-06-23] MEDS ORDERED: NALOXONE 0.4 MG/ML 1 ML VIAL IV PRN (14:16)
[2019-06-23] MEDS ORDERED: ONDANSETRON 4 MG/2 ML VIAL IVP PRN (14:16)
[2019-06-23] MEDS ORDERED: MELATONIN 3 MG TABLET PO PRN (14:16)
[2019-06-23] MEDS ORDERED: ALBUTEROL NEBULIZED 2.5 MG/3 ML INHALATION PRN (14:18)
[2019-06-23 14:23] LABS: Eosinophils # (M) 0.09 k/uL (0-0.7); Lymphocytes # (M) 2.78 k/uL (1.0-4.8); Monocytes # (M) 0.78 k/uL (0-1.0); Neutrophils # (M) 5.05 k/uL (1.3-7.7); Neutrophils % (M) 58 %; Nucleated Red Blood Cells 0 /100 WBC (0-0); Total Cells Counted 100
[2019-06-23] MEDS ORDERED: HYDROmorphone 0.5 MG/0.5 ML SYRINGE IVP PRN (15:43)
[2019-06-23] MEDS ORDERED: TEMAZEPAM 15 MG CAP PO PRN (15:43)
[2019-06-23] MEDS ORDERED: HYDROcodone/APAP 5-325MG 1 EACH TAB PO PRN (15:43)
[2019-06-23] MEDS ORDERED: ACETAMINOPHEN TAB 500 MG TAB PO PRN (15:43)
[2019-06-23 17:12] LABS: Glucose,Whole Blood 132 mg/dL (75-99)
[2019-06-23] MEDS: methylPREDNISolone SOD SUCCI 125 MG/2 ML VIAL IV SCH (18:49)
[2019-06-23] MEDS: ALPRAZolam 0.25 MG TAB PO PRN (18:49)
[2019-06-23 19:31] LABS: Appearance,Urine Clear (Clear); Bilirubin,Urine Negative (Negative); Blood,Urine Negative (Negative); Color,Urine Yellow; Glucose,Urine (UA) 4+ (Negative); Ketones,Urine Negative (Negative); Leukocyte Esterase,Urine Negative (Negative); Nitrite,Urine Negative (Negative); PH, Urine 7.5 (5.0-8.0); Protein,Urine Trace (Negative); Specific Gravity,Urine 1.014 (1.001-1.035); Urobilinogen,Urine <2.0 mg/dL (<2.0)
[2019-06-23 20:08] LABS: Glucose,Whole Blood 236 mg/dL (75-99)
[2019-06-23] MEDS ORDERED: IPRATROPIUM 0.5 MG/2.5 ML NEBU INHALATION PRN (20:43)
[2019-06-23] MEDS ORDERED: LEVOFLOXACIN 500MG-D5W PMX 500 MG in DEXTROSE/WATER 1 100ML.BAG IVPB SCH (21:00)
[2019-06-23] MEDS: INSULIN ASPART (NovoLOG) 100 UNIT/ML VIAL SQ SCH (21:14)
--- NOTE | 2019-06-24 00:39 | HP ---
HISTORY AND PHYSICAL CHIEF COMPLAINT: Shortness of breath and cough. HISTORY OF PRESENT ILLNESS: This 54-year-old gentleman with a past history of asthma, history of CHF, COPD, DVT, history of MRSA, history of tonsillectomy being followed by Dr. Ho and Dr. Zapata as an outpatient. The patient is complaining of shortness of breath for the past several days. Patient continues to smoke. The patient came to [facility], admitted for evaluation and treatment. There is no history of any fever, rigors. No headache, loss of consciousness or seizures at this time. The patient is slightly drowsy. Patient is found to be hypercarbic. Chest x-ray showed left basilar opacity, possibly atelectasis or pneumonia. PAST MEDICAL HISTORY: History of COPD, history of CHF, history of DVT, history of asthma, history of MRSA, depression. MEDICATIONS ARE: 1. Xarelto 20 mg p.o. daily. 2. K-Dur 10 mg p.o. daily. 3. Lasix 20 mg. 4. Cardizem CD 120 mg. 5. Ventolin 2.5 q.4 p.r.n. 6. Ventolin HFA 1-2 puffs q.6h p.r.n. ALLERGIES: PENICILLIN. FAMILY HISTORY: History of cancer ( ). SOCIAL HISTORY: History of smoking, continued, ongoing. No alcohol intake. REVIEW OF SYSTEMS: ENT: No diminished hearing. No diminished vision. CARDIOVASCULAR: No angina or palpitations. RESPIRATORY: As mentioned earlier. GI: No nausea. : No dysuria. NERVOUS SYSTEM: No numbness or weakness. ALLERGY/IMMUNOLOGY: As mentioned earlier. ENDOCRINE: NO history of diabetes or hypothyroidism. CONSTITUTIONAL: As mentioned earlier. PSYCHIATRY: As mentioned earlier. PHYSICAL EXAMINATION: Alert oriented x3. Pulse is 106, blood pressure 110/70, respiration 18, temperature 98.5, pulse ox 90% on 4 L. HEENT: Conjunctivae normal. Oral mucosa moist. NECK: No jugular venous distention. No lymph node enlargement. CARDIOVASCULAR: S1, S2. RESPIRATORY: Diminished breath sounds at the bases. Bilateral scattered rhonchi and crackles. Expiratory wheezing also present. ABDOMEN: Soft, nontender. LEGS: No edema, no swelling. NERVOUS SYSTEM: Higher functions mentioned earlier. Moves all four limbs. No focal deficits. LYMPHATICS: No lymph node in neck or axilla. SKIN: No rash. JOINTS: No active deforming arthropathy. LABS: CBC within normal limits. Otherwise, sodium 140, potassium 4.7, CO2 is 44. ASSESSMENT: 1. Chronic obstructive pulmonary disease exacerbation with acute hypoxic hypercarbic respiratory failure as well as possible acute left lower pneumonia, possibly gram- negative. 2. History of asthma. 3. History of congestive heart failure. 4. History of deep vein thrombosis. 5. History of depression. 6. History of pulmonary embolism. 7. History of MRSA. 8. History of continued ongoing nicotine dependence. RECOMMENDATIONS AND DISCUSSION: In this 54-year-old gentleman who presented with multiple complex medical issues, we will monitor the patient closely, continue the current management and symptomatic treatment. Otherwise, at this time I recommend continue the empiric antibiotics, bronchodilators, IV steroids. Consult Dr. Zapata. Resume the home medications. Guarded prognosis because of multiple complex medical issues. Further recommendations to follow. MMODL / IJN: [id number] /
[2019-06-24] MEDS: methylPREDNISolone SOD SUCCI 125 MG/2 ML VIAL IV SCH ×4 (06:03→17:30)
[2019-06-24] MEDS: BUDESONIDE 1 MG/2 ML NEBU INHALATION SCH ×2 (07:24→20:14)
[2019-06-24] MEDS: IPRATROPIUM 0.5 MG/2.5 ML NEBU INHALATION SCH ×4 (07:24→20:14)
[2019-06-24] MEDS: FORMOTEROL FUMARATE 20 MCG/2 ML NEBU INHALATION SCH ×2 (07:24→20:14)
[2019-06-24 07:53] LABS: Glucose,Whole Blood 200 mg/dL (75-99)
[2019-06-24 08:33] LABS: Basophils # (A) 0.1 k/uL (0-0.2); Basophils % (A) 1 %; Eosinophils % (A) 0 %; HCT 45.6 % (39.0-53.0); HGB 14.4 gm/dL (13.0-17.5); Hypochromasia Slight; Lymphocytes % (A) 13 %; MCH 28.4 pg (25.0-35.0); MCHC 31.5 g/dL (31.0-37.0); Mean Platelet Volume 6.3; Monocytes # (A) 0.1 k/uL (0-1.0); Monocytes % (A) 1 %; Neutrophils # (A) 6.9 k/uL (1.3-7.7); Neutrophils % (A) 85 %; Platelet Count 194 k/uL (150-450); RBC 5.07 m/uL (4.30-5.90); RDW 13.4 % (11.5-15.5); WBC 8.1 k/uL (3.8-10.6)
[2019-06-24 08:43] LABS: African American GFR (CKD) >90 (>60 ml/min/1.73 sqM); Blood Urea Nitrogen 15 mg/dL (9-20); Chloride 92 mmol/L (98-107); Glucose 184 mg/dL (74-99); Non-African American GFR(CKD) >90 (>60 ml/min/1.73 sqM); Potassium 4.6 mmol/L (3.5-5.1); Sodium 139 mmol/L (137-145)
[2019-06-24 08:51] LABS: Anion Gap 3 mmol/L
[2019-06-24 09:00] LABS: Carbon Dioxide 44 mmol/L (22-30)
[2019-06-24] MEDS ORDERED: AZITHROMYCIN 500 MG in SODIUM CHLORIDE 0.9% 250 ML IVPB SCH (09:00)
[2019-06-24] MEDS: ALPRAZolam 0.25 MG TAB PO PRN ×2 (09:00)
[2019-06-24] MEDS: POTASSIUM CHLORIDE ER 10 MEQ TAB.ER.PRT PO SCH (09:05)
[2019-06-24] MEDS: DILTIAZEM CD 120 MG CAP.ER.24H PO SCH (09:05)
[2019-06-24] MEDS: RIVAROXABAN 20 MG TAB PO SCH (09:05)
[2019-06-24] MEDS: INSULIN ASPART (NovoLOG) 100 UNIT/ML VIAL SQ SCH ×4 (09:06→21:39)
[2019-06-24] MEDS: MULTIVITAMINS, THERA 1 EACH TAB PO SCH (09:06)
[2019-06-24] MEDS: FUROSEMIDE 20 MG TAB PO SCH (09:06)
[2019-06-24] MEDS: PANTOPRAZOLE 40 MG TABLET PO SCH (09:06)
[2019-06-24] MEDS: NICOTINE 14MG/24HR PATCH TRANSDERM SCH (09:08)
[2019-06-24 10:51] VITALS: BMI 30.4
[2019-06-24 11:45] LABS: Glucose,Whole Blood 176 mg/dL (75-99)
--- NOTE | 2019-06-24 13:58 | P.CNPUL ---
History of Present Illness Consult date: 06/24/19 Requesting physician: Leodan Goznalez Reason for consult: COPD Chief complaint: Shortness of breath History of present illness: This is a 54-year-old white male, [id number] smoker, continues to smoke, patient is known to have history of severe COPD, chronic hypoxic respiratory failure, left hemidiaphragm paralysis, chronic hypercapnic respiratory failure, patient normally sees Dr. Zapata in the office. Patient is maintained on vpap auto with EPAP minimum of 7 and IPAP of 15. and he is quite compliant with the machine. Presented to the hospital with a few days' history of cough, wheezing, shortness of breath. Cough is productive with yellow phlegm, denies any fever no chills no hemoptysis no chest pain. His chest x-ray on admission showed left basilar atelectasis, and interstitial prominence, hence the patient was admitted and this consult was initiated. There is chronic left hemidiaphragm elevation, patient has been seen in the past for his diaphragm paralysis at [facility], and surgery was denied because of his ongoing tobacco dependence syndrome. Looking back at his previous PFT, patient has FEV1 in the range of 27%. And he is maintained on 4 L nasal cannula at home. Review of Systems Constitutional: No fever no chills no weight loss. Pulmonary: As noted in HPI mostly cough wheezing shortness of breath Cardiac: Denies any chest pain, syncope, palpitations, diaphoresis. GI: Denies nausea vomiting abdominal pain melena or hematemesis Genitourinary: Denies any dysuria frequency urgency or hematuria. Neurologic: Denies any headache blurred vision or dizziness Psychiatric: Denies any symptoms of active depression Hematologic: Denies any clotting bleeding or bruising Endocrine: Denies any heat or cold intolerance Skin: Denies any rashes. Denies any pruritus. Musculoskeletal: Denies any limitation in range of motion denies any arthralgia or myalgia. Past Medical History Past Medical History: Asthma, Heart Failure, COPD, Deep Vein Thrombosis (DVT) Additional Past Medical History / Comment(s): depression,PE History of Any Multi-Drug Resistant Organisms: MRSA Date of last positivie culture/infection: 07/27/2014 MDRO Source:: Left leg Past Surgical History: Tonsillectomy Additional Past Surgical History / Comment(s): unknown right elbow surgery Past Anesthesia/Blood Transfusion Reactions: No Reported Reaction Past Psychological History: Depression Smoking Status: Current every day smoker Past Alcohol Use History: None Reported Past Drug Use History: None Reported - Past Family History Father Additional Family Medical History / Comment(s): blood clot Mother Family Medical History: Cancer Medications and Allergies Home Medications Medication Instructions Recorded Confirmed Type Albuterol Inhaler [Ventolin Hfa 1 - 2 puff INHALATION RT-Q6H PRN 08/01/17 09/06/03 History Inhaler] Furosemide [Lasix] 20 mg PO DAILY 08/01/17 06/23/19 History Potassium Chloride ER [K-Dur 10] 10 meq PO DAILY 08/01/17 06/23/19 History Rivaroxaban [Xarelto] 20 mg PO DAILY 08/01/17 06/23/19 History Albuterol Nebulized [Ventolin 2.5 mg INHALATION RT-Q4H PRN 04/21/19 06/23/19 History Nebulized] Diltiazem Cd [Cardizem CD] 120 mg PO DAILY 04/21/19 06/23/19 History Allergies Allergy/AdvReac Type Severity Reaction Status Date / Time Penicillins Allergy Anaphylaxis Verified 06/23/19 13:26 Physical Exam Vitals: Vital Signs Temp Pulse Pulse Resp BP BP Pulse Ox 06/24/19 12:10 98.7 F 91 20 127/63 90 L 06/24/19 11:06 98 06/24/19 10:56 96 06/24/19 07:45 94 06/24/19 07:35 92 06/24/19 07:34 92 06/24/19 07:24 92 06/24/19 05:17 97.7 F 96 20 125/87 91 L 06/23/19 21:21 98.1 F 115 H 28 H 135/84 90 L 06/23/19 18:26 107 H 06/23/19 17:00 98.5 F 106 H 18 129/73 92 L 06/23/19 15:39 98.5 F 92 18 137/80 93 L 06/23/19 14:34 98.4 F 108 H 18 148/88 95 06/23/19 14:18 109 H 06/23/19 13:52 91 Intake and Output 06/23/19 06/24/19 06/24/19 22:59 06:59 14:59 Intake Total 340 590 Balance 340 590 Intake: Intake, IV Titration 100 Amount Levofloxacin 500Mg-D5w 100 Pmx 500 mg In Dextrose/ Water 1 100ml.bag @ 100 mls/hr IVPB Q24H [facility] Rx#: [id number] Oral 240 590 Other: Voiding Method Toilet Toilet # Voids 2 1 # Bowel Movements 0 Weight 102 kg 102 kg Physical Exam: Revealed a 54-year-old white male in no distress. On oxygen at 5 L nasal cannula. Head: Atraumatic, normocephalic. HEENT:[Neck is supple.] [No neck masses.] [No thyromegaly.] [No JVD.] Chest: [Diminished breath sound bilaterally wheezing on forced expiratory maneuver noted bilaterally. No chest wall tenderness. Symmetrical chest expansion..] Cardiac Exam: [Normal S1 and S2, no S3 gallop, no murmur.] Abdomen: [Soft, nontender, no megaly, no rebound, no guarding, normal bowel sounds.] Extremities: [No clubbing, no edema, no cyanosis.] Neurological Exam: [No focal neurologic deficit. Alert and oriented 3. Psychiatric: Normal mood affect and normal mental status examination. Skin: No rashes. Lymphatics: No lymphadenopathy.] Results - Laboratory Findings CBC and BMP: 06/24/19 07:50 06/24/19 07:50 PT/INR, D-dimer PT 9.7 sec (9.0-12.0) 06/23/19 12:57 INR 0.9 (<1.2) 06/23/19 12:57 Abnormal lab findings: Abnormal Labs 06/23/19 06/23/19 06/23/19 12:57 17:02 19:18 Chloride 91 L Carbon Dioxide 44 H* Creatinine 0.49 L Glucose POC Glucose (mg/dL) 132 H Urine Protein Trace H Urine Glucose (UA) 4+ H 06/23/19 06/24/19 06/24/19 20:06 07:50 07:52 Chloride 92 L Carbon Dioxide 44 H* Creatinine 0.56 L Glucose 184 H POC Glucose (mg/dL) 236 H 200 H Urine Protein Urine Glucose (UA) 06/24/19 11:44 Chloride Carbon Dioxide Creatinine Glucose POC Glucose (mg/dL) 176 H Urine Protein Urine Glucose (UA) - Diagnostic Findings Chest x-ray: image reviewed (Left hemidiaphragm elevation, and left basilar atelectasis, possible pneumonia, but felt to be less likely.) Assessment and Plan Assessment: Impression: 1 acute exacerbation of COPD, patient is known to have history of severe COPD FEV1 of 27% of the predicted. 2 chronic hypoxic respiratory failure 3 chronic hypercapnic respiratory failure 4 chronic left hemidiaphragm paralysis 5 history of pulmonary embolism 6 tobacco dependence syndrome 7 left lower lobe atelectasis, strongly doubt pneumonia. Recommendation: I agree with the present treatment plan, patient is to remain on his present ventilatory device, to use it at night when he sleeps and as needed. Continue present course of bronchodilators, steroids, antibiotics empirically, will order a pro-calcitonin level, continue IV Solu-Medrol, patient is expected to improve in the next few days, and he will follow-up with Dr. Zapata on outpatient basis. Counseled regarding smoking cessation. We will continue to follow. Time with Patient: Greater than 30
[2019-06-24 17:11] LABS: Glucose,Whole Blood 245 mg/dL (75-99)
[2019-06-24] MEDS: LEVOFLOXACIN 500 MG TAB PO SCH (20:03)
--- NOTE | 2019-06-24 20:16 | PN ---
PROGRESS NOTE DATE OF SERVICE: 06/24/2019 This 54-year-old gentleman who was admitted with COPD, acute exacerbation, with acute hypoxic hypercarbic respiratory failure is being closely monitored at this time. The patient is still hypercarbic. The patient is feeling slightly better. No chest pain. No palpitations. No fever. Pulmonary consultation underway. On exam, alert and oriented x3. Pulse is 91, blood pressure 127/63, respiration 20, temperature 98.7, pulse ox 90% on 5 L. HEENT: Conjunctivae normal. NECK: No jugular venous distention. CARDIOVASCULAR SYSTEM: S1, S2 muffled. RESPIRATORY SYSTEM: Breath sounds diminished at the bases. Bilateral scattered rhonchi and crackles. ABDOMEN: Soft, non-tender. LEGS: No edema. No swelling. NERVOUS SYSTEM: No focal deficit. LABS: CBC within normal limits. Sodium 139, CO2 44. Influenza negative. ASSESSMENT: 1. Chronic obstructive pulmonary disease, acute exacerbation, with acute hypoxic hypercarbic respiratory failure with possible acute left lower lobe pneumonia, possibly gram-negative; possibly atelectasis. 2. History of asthma. 3. History of congestive heart failure; ejection fraction unknown. 4. History of deep vein thrombosis. 5. Depression. 6. Change in mental status, acute metabolic encephalopathy secondary to hypercarbia. 7. History of pulmonary embolism. 8. History of methicillin-resistant Staphylococcus aeruginosa. 9. Continued and ongoing nicotine dependence. RECOMMENDATIONS AND DISCUSSION: I recommend to continue current medications, continue with the monitoring, symptomatic treatment. Continue with broad-spectrum antibiotics. Continue with the bronchodilators. Continue with steroids. Closely follow with Dr. Mcclendon. See orders for further details. Guarded prognosis. Further recommendations to follow. MMODL / IJN: [id number] / [facility]
[2019-06-24 21:35] LABS: Glucose,Whole Blood 224 mg/dL (75-99)
[2019-06-25] MEDS: methylPREDNISolone SOD SUCCI 125 MG/2 ML VIAL IV SCH ×5 (01:31→23:49)
[2019-06-25] MEDS: IPRATROPIUM 0.5 MG/2.5 ML NEBU INHALATION SCH ×4 (05:58→19:31)
[2019-06-25] MEDS: PANTOPRAZOLE 40 MG TABLET PO SCH (07:06)
[2019-06-25] MEDS: POTASSIUM CHLORIDE ER 10 MEQ TAB.ER.PRT PO SCH (07:06)
[2019-06-25] MEDS: FUROSEMIDE 20 MG TAB PO SCH (07:06)
[2019-06-25] MEDS: RIVAROXABAN 20 MG TAB PO SCH (07:06)
[2019-06-25] MEDS: MULTIVITAMINS, THERA 1 EACH TAB PO SCH (07:06)
[2019-06-25] MEDS: DILTIAZEM CD 120 MG CAP.ER.24H PO SCH (07:06)
[2019-06-25] MEDS: NICOTINE 14MG/24HR PATCH TRANSDERM SCH (07:07)
[2019-06-25 07:16] LABS: Glucose,Whole Blood 164 mg/dL (75-99)
[2019-06-25] MEDS: INSULIN ASPART (NovoLOG) 100 UNIT/ML VIAL SQ SCH ×4 (07:32→21:46)
[2019-06-25] MEDS: BUDESONIDE 1 MG/2 ML NEBU INHALATION SCH ×2 (07:54→19:31)
[2019-06-25] MEDS: FORMOTEROL FUMARATE 20 MCG/2 ML NEBU INHALATION SCH ×2 (07:54→19:30)
[2019-06-25 08:33] LABS: Basophils % (A) 0 %; Eosinophils % (A) 0 %; HCT 46.2 % (39.0-53.0); HGB 14.5 gm/dL (13.0-17.5); Lymphocytes # (A) 1.1 k/uL (1.0-4.8); Lymphocytes % (A) 7 %; MCH 28.1 pg (25.0-35.0); MCHC 31.4 g/dL (31.0-37.0); MCV 89.4 fL (80.0-100.0); Mean Platelet Volume 6.7; Monocytes # (A) 0.3 k/uL (0-1.0); Monocytes % (A) 2 %; Neutrophils # (A) 13.7 k/uL (1.3-7.7); Neutrophils % (A) 90 %; Platelet Count 215 k/uL (150-450); RBC 5.16 m/uL (4.30-5.90); RDW 13.6 % (11.5-15.5); WBC 15.1 k/uL (3.8-10.6)
[2019-06-25 08:40] LABS: African American GFR (CKD) >90 (>60 ml/min/1.73 sqM); Blood Urea Nitrogen 21 mg/dL (9-20); Calcium 9.3 mg/dL (8.4-10.2); Chloride 92 mmol/L (98-107); Glucose 208 mg/dL (74-99); Non-African American GFR(CKD) >90 (>60 ml/min/1.73 sqM); Potassium 4.7 mmol/L (3.5-5.1); Sodium 139 mmol/L (137-145)
[2019-06-25 08:46] LABS: Anion Gap 6 mmol/L
[2019-06-25 08:52] LABS: Carbon Dioxide 41 mmol/L (22-30)
[2019-06-25 12:29] LABS: Glucose,Whole Blood 250 mg/dL (75-99)
--- NOTE | 2019-06-25 12:32 | P.PN ---
Subjective Progress Note Date: 06/25/19 Principal diagnosis: Acute exacerbation of chronic obstructive pulmonary disease. This is a 54-year-old white male, [id number] smoker, continues to smoke, patient is known to have history of severe COPD, chronic hypoxic respiratory failure, left hemidiaphragm paralysis, chronic hypercapnic respiratory failure, patient normally sees Dr. Zapata in the office. Patient is maintained on vpap auto with EPAP minimum of 7 and IPAP of 15. and he is quite compliant with the machine. Presented to the hospital with a few days' history of cough, wheezing, shortness of breath. Cough is productive with yellow phlegm, denies any fever no chills no hemoptysis no chest pain. His chest x-ray on admission showed left basilar atelectasis, and interstitial prominence, hence the patient was admitted and this consult was initiated. There is chronic left hemidiaphragm elevation, patient has been seen in the past for his diaphragm paralysis at [facility], and surgery was denied because of his ongoing tobacco dependence syndrome. Looking back at his previous PFT, patient has FEV1 in the range of 27%. And he is maintained on 4 L nasal cannula at home. The patient is seen today 06/25/2019 in follow-up on the regular medical floor. He is awake and alert in no acute distress. Breathing a bit easier today as compared to yesterday. Not quite back to his baseline. Maintaining good O2 saturations in the 90s on 4 L/m per nasal cannula. Blood culture reveals no rancho wth to date. Sputum cultures pending. White count 15.1. Hemoglobin 14.5. Bicarb 41. Creatinine 0.68. He remains on DuoNeb inhalations, Pulmicort and Perforomist inhalations, IV Solu-Medrol, Levaquin. NicoDerm patch is in place. Objective - Vital Signs Vital signs: Vital Signs Temp 97.4 F L 06/25/19 05:38 Pulse 86 06/25/19 11:34 Resp 20 06/25/19 05:38 BP 121/72 06/25/19 05:38 Pulse Ox 91 L 06/25/19 07:56 Intake & Output 06/24/19 06/25/19 06/25/19 18:59 06:59 18:59 Intake Total 400 Balance 400 Weight 102 kg 101.106 kg Intake: Oral 400 Other: Voiding Method Toilet Toilet Toilet # Voids 1 1 2 # Bowel Movements 0 - Exam GENERAL EXAM: Alert, active, 54-year-old gentleman, comfortable in no apparent distress. On 4 L nasal cannula. HEAD: Normocephalic. EYES: Normal reaction of pupils, equal size. NOSE: Clear with pink turbinates. THROAT: No erythema or exudates. NECK: No masses, no JVD. CHEST: No chest wall deformity. LUNGS: Equal air entry with end expiratory wheeze bilaterally, diminished CVS: S1 and S2 normal with no audible murmur, regular rhythm. ABDOMEN: No hepatosplenomegaly, normal bowel sounds, no guarding or rigidity. SPINE: No scoliosis or deformity SKIN: No rashes CENTRAL NERVOUS SYSTEM: No focal deficits, tone is normal in all 4 extremities. EXTREMITIES: There is no peripheral edema. No clubbing, no cyanosis. Peripheral pulses are intact. - Labs CBC & Chem 7: 06/25/19 08:01 06/25/19 08:01 Labs: Abnormal Lab Results - Last 24 Hours (Table) 06/24/19 06/24/19 06/25/19 Range/Units 17:10 21:33 07:14 WBC (3.8-10.6) k/uL Neutrophils # (1.3-7.7) k/uL Chloride (98-107) mmol/L Carbon Dioxide (22-30) mmol/L BUN (9-20) mg/dL Glucose (74-99) mg/dL POC Glucose (mg/dL) 245 H 224 H 164 H (75-99) mg/dL 06/25/19 06/25/19 Range/Units 08:01 08:01 WBC 15.1 H (3.8-10.6) k/uL Neutrophils # 13.7 H (1.3-7.7) k/uL Chloride 92 L (98-107) mmol/L Carbon Dioxide 41 H* (22-30) mmol/L BUN 21 H (9-20) mg/dL Glucose 208 H (74-99) mg/dL POC Glucose (mg/dL) (75-99) mg/dL Microbiology - Last 24 Hours (Table) 06/24/19 11:00 Gram Stain - Preliminary Sputum 06/23/19 14:28 Blood Culture - Preliminary Blood No Growth after 24 hours Assessment and Plan Assessment: Impression: 1 acute exacerbation of COPD, patient is known to have history of severe COPD FEV1 of 27% of the predicted. 2 acute on chronic hypoxic respiratory failure secondary to above, oxygen dependent at 4 L/m per nasal cannula in the outpatient setting. 3 acute on chronic hypercapnic respiratory failure secondary to above, on home AVAPS device. 4 chronic left hemidiaphragm paralysis. 5 history of pulmonary embolism. 6 chronic and ongoing tobacco dependence syndrome. 7 left lower lobe atelectasis, strongly doubt pneumonia. Plan: The patient was seen and evaluated by Dr. Mcclendon. He is improved today compared to yesterday. Not quite back to his baseline. We'll continue with the current treatment plan. Increase his activity as tolerated. Probable discharge in the a.m. We'll continue to follow. I, the cosigning physician, performed a history & physical examination of the patient. Lungs sounds with bilateral end expiratory wheeze, diminished Maintaining good O2 saturations in the 90s on 4 L/m per nasal cannula.. I discussed the assessment and plan of care with my nurse practitioner, Edna Nguyen. I attest to the above note as dictated by her.
--- NOTE | 2019-06-25 14:53 | CDI ---
Documentation Clarification Form Date: 06/25/2019 2:41:22 PM From: Tram AdanSaavedraCAROLINA, CCDS Admit Date: 06/23/2019 1:50:00 PM Patient Name: David Godinez Visit Number: [id number] Discharge Date: ATTENTION: The Clinical Documentation Specialists (CDI) and [facility] Coding Staff appreciate your assistance in clarifying documentation. Please respond to the clarification below the line at the bottom and electronically sign. The CDI & [facility] Coding staff will review the response and follow-up if needed. Please note: Queries are made part of the Legal Health Record. If you have any questions, please contact the author of this message via ITS. Dr. Leti Siddiqui: Per the History & Physical & subsequent progress note: "Chronic obstructive pulmonary disease, acute exacerbation, with acute hypoxic hypercarbic respiratory failure with possible acute left lower lobe pneumonia, possibly gram-negative; possibly atelectasis." Per the Pulmonary Consult & subsequent progress note: "acute exacerbation of COPD, .... left lower lobe atelectasis, strongly doubt pneumonia." History/Risk Factors: Severe COPD, 50 year ppd smoker, continues to smoke, Chronic hypoxic & hypercarbic respiratory failure on home O2 4Lnc, Chronic left hemidiaphragm paralysis. History of asthma. Clinical Indicators: SOB & cough. Vital signs: T 98.5, P 103^, R 25 (cough, SOB), BP 125/86, PO 88 RA WBC: CO2 44^^ Blood cultures: preliminary negative @ 24 hrs, Sputum: preliminary pending. CXR: New left basilar opacity may represent atelectasis or pneumonia. Cardiogenic or noncardiogenic fluid overload. Treatment: INH Albuterol, INH Atrovent, IV MagSulfate, IV Solumedrol, IV Azithromycin, IV Rocephin, IV Levaquin. In order to capture the severity of condition, please clarify if the condition signifies and you are treating for: Pneumonia ruled out Bacterial Pneumonia, specify causal organism (if known) o Gram Negative Pneumonia o Other bacteria (please specify) Viral Pneumonia, specify casual organism (if known) Healthcare Acquired Pneumonia/Pneumonia, unspecified Other, please specify Unable to determine (Last Revision: January 2018) Bacterial Pneumonia, o Gram Negative Pneumonia?? MTDD
[2019-06-25 17:14] LABS: Glucose,Whole Blood 142 mg/dL (75-99)
[2019-06-25 20:57] LABS: Glucose,Whole Blood 196 mg/dL (75-99)
[2019-06-25] MEDS: LEVOFLOXACIN 500 MG TAB PO SCH (21:03)
--- NOTE | 2019-06-25 23:52 | PN ---
PROGRESS NOTE DATE OF SERVICE: 06/25/2019 This 54-year-old gentleman who was admitted with COPD acute exacerbation, acute purulent tracheobronchitis, improving significantly. No chest pain. No palpitations. No fever. is following the patient, the patient on bronchodilators, antibiotics and steroids. No chest pain. No palpitations. No fever. EXAM: Alert and oriented times three. Pulse is 80. Blood pressure is 123/79, respiration 18, temperature 98.1, pulse ox 98% on 4 L. HEENT is conjunctivae normal. NECK: No jugular venous distention. CARDIOVASCULAR: S1, S2 muffled. RESPIRATIONS: Breath sounds diminished in the bases. Scattered rhonchi and crackles. ABDOMEN is soft. Nontender. LEGS: No edema. No swelling. CENTRAL NERVOUS SYSTEM : No focal deficits. LABORATORY DATA: WBC 15.1, CO2 is 41, glucose noted. ASSESSMENT: 1. Chronic obstructive pulmonary disease acute exacerbation with acute hypoxic hypercarbic respiratory failure, present on admission with acute left lower pneumonia possibly gram-negative with possibly atelectasis. 2. History of asthma. 3. History of congestive heart failure ejection fraction unknown. 4. History of deep vein thrombosis. 5. Depression. 6. Change in mental status, acute metabolic encephalopathy, secondary to hypercarbia. 7. History of pulmonary embolism. 8. History of MRSA. 9. Continued ongoing nicotine dependence. RECOMMENDATIONS AND DISCUSSION: Recommend to continue current medications, management, symptomatic treatment, bronchodilators, steroids and antibiotics. Guarded prognosis because of multiple complex medical issues. Further recommendations to follow. MMODL / IJN: [id number] / MTDD
[2019-06-26 05:52] VITALS: BP 115/70; RESP 16; TEMP 97.7
[2019-06-26] MEDS: methylPREDNISolone SOD SUCCI 125 MG/2 ML VIAL IV SCH (05:59)
[2019-06-26 07:24] LABS: Glucose,Whole Blood 201 mg/dL (75-99)
[2019-06-26] MEDS: FUROSEMIDE 20 MG TAB PO SCH (07:24)
[2019-06-26] MEDS: PANTOPRAZOLE 40 MG TABLET PO SCH (07:24)
[2019-06-26] MEDS: MULTIVITAMINS, THERA 1 EACH TAB PO SCH (07:24)
[2019-06-26] MEDS: INSULIN ASPART (NovoLOG) 100 UNIT/ML VIAL SQ SCH (07:24)
[2019-06-26] MEDS: DILTIAZEM CD 120 MG CAP.ER.24H PO SCH (07:24)
[2019-06-26] MEDS: NICOTINE 14MG/24HR PATCH TRANSDERM SCH (07:24)
[2019-06-26] MEDS: RIVAROXABAN 20 MG TAB PO SCH (07:24)
[2019-06-26] MEDS: POTASSIUM CHLORIDE ER 10 MEQ TAB.ER.PRT PO SCH (07:25)
[2019-06-26] MEDS: FORMOTEROL FUMARATE 20 MCG/2 ML NEBU INHALATION SCH (07:41)
[2019-06-26] MEDS: IPRATROPIUM 0.5 MG/2.5 ML NEBU INHALATION SCH (07:41)
[2019-06-26] MEDS: BUDESONIDE 1 MG/2 ML NEBU INHALATION SCH (07:41)
[2019-06-26 08:05] VITALS: PULSE 74
[2019-06-26 08:06] LABS: Basophils # (A) 0.1 k/uL (0-0.2); Basophils % (A) 0 %; Eosinophils % (A) 0 %; HCT 48.4 % (39.0-53.0); HGB 14.9 gm/dL (13.0-17.5); Lymphocytes # (A) 1.1 k/uL (1.0-4.8); Lymphocytes % (A) 8 %; MCH 27.5 pg (25.0-35.0); MCHC 30.8 g/dL (31.0-37.0); MCV 89.4 fL (80.0-100.0); Mean Platelet Volume 6.8; Monocytes # (A) 0.4 k/uL (0-1.0); Monocytes % (A) 3 %; Neutrophils # (A) 12.1 k/uL (1.3-7.7); Neutrophils % (A) 88 %; Platelet Count 215 k/uL (150-450); RBC 5.41 m/uL (4.30-5.90); RDW 13.7 % (11.5-15.5); WBC 13.7 k/uL (3.8-10.6)
[2019-06-26 08:25] LABS: African American GFR (CKD) >90 (>60 ml/min/1.73 sqM); Anion Gap 5 mmol/L; Blood Urea Nitrogen 23 mg/dL (9-20); Calcium 9.4 mg/dL (8.4-10.2); Carbon Dioxide 38 mmol/L (22-30); Chloride 94 mmol/L (98-107); Glucose 218 mg/dL (74-99); Non-African American GFR(CKD) >90 (>60 ml/min/1.73 sqM); Potassium 4.4 mmol/L (3.5-5.1); Sodium 137 mmol/L (137-145)
--- NOTE | 2019-06-26 14:03 | P.PN ---
Subjective Progress Note Date: 06/26/19 Principal diagnosis: Acute exacerbation of chronic obstructive pulmonary disease. This is a 54-year-old white male, [id number] smoker, continues to smoke, patient is known to have history of severe COPD, chronic hypoxic respiratory failure, left hemidiaphragm paralysis, chronic hypercapnic respiratory failure, patient normally sees Dr. Zapata in the office. Patient is maintained on vpap auto with EPAP minimum of 7 and IPAP of 15. and he is quite compliant with the machine. Presented to the hospital with a few days' history of cough, wheezing, shortness of breath. Cough is productive with yellow phlegm, denies any fever no chills no hemoptysis no chest pain. His chest x-ray on admission showed left basilar atelectasis, and interstitial prominence, hence the patient was admitted and this consult was initiated. There is chronic left hemidiaphragm elevation, patient has been seen in the past for his diaphragm paralysis at [facility], and surgery was denied because of his ongoing tobacco dependence syndrome. Looking back at his previous PFT, patient has FEV1 in the range of 27%. And he is maintained on 4 L nasal cannula at home. The patient is seen today 06/25/2019 in follow-up on the regular medical floor. He is awake and alert in no acute distress. Breathing a bit easier today as compared to yesterday. Not quite back to his baseline. Maintaining good O2 saturations in the 90s on 4 L/m per nasal cannula. Blood culture reveals no rancho wth to date. Sputum cultures pending. White count 15.1. Hemoglobin 14.5. Bicarb 41. Creatinine 0.68. He remains on DuoNeb inhalations, Pulmicort and Perforomist inhalations, IV Solu-Medrol, Levaquin. NicoDerm patch is in place. The patient is seen today surgery 2018 in follow-up on the regular medical floor. He is currently resting comfortably in bed. Awake and alert in no acute distress. He is feeling back to his baseline. He is anxious to go home. Objective - Vital Signs Vital signs: Vital Signs Temp 97.7 F 06/26/19 05:51 Pulse 74 06/26/19 08:00 Resp 16 06/26/19 05:51 BP 115/70 06/26/19 05:51 Pulse Ox 92 L 06/26/19 05:51 Intake & Output 06/25/19 06/26/19 06/26/19 18:59 06:59 18:59 Intake Total 120 Balance 120 Weight 100 kg Intake: Oral 120 Other: Voiding Method Toilet # Voids 2 2 1 - Exam GENERAL EXAM: Alert, active, 54-year-old gentleman, comfortable in no apparent distress. On 4 L nasal cannula. HEAD: Normocephalic. EYES: Normal reaction of pupils, equal size. NOSE: Clear with pink turbinates. THROAT: No erythema or exudates. NECK: No masses, no JVD. CHEST: No chest wall deformity. LUNGS: Equal air entry with end expiratory wheeze bilaterally, diminished CVS: S1 and S2 normal with no audible murmur, regular rhythm. ABDOMEN: No hepatosplenomegaly, normal bowel sounds, no guarding or rigidity. SPINE: No scoliosis or deformity SKIN: No rashes CENTRAL NERVOUS SYSTEM: No focal deficits, tone is normal in all 4 extremities. EXTREMITIES: There is no peripheral edema. No clubbing, no cyanosis. Peripheral pulses are intact. - Labs CBC & Chem 7: 06/26/19 07:29 06/26/19 07:29 Labs: Abnormal Lab Results - Last 24 Hours (Table) 06/25/19 06/25/19 06/26/19 Range/Units 17:04 20:42 07:21 WBC (3.8-10.6) k/uL MCHC (31.0-37.0) g/dL Neutrophils # (1.3-7.7) k/uL Chloride (98-107) mmol/L Carbon Dioxide (22-30) mmol/L BUN (9-20) mg/dL Glucose (74-99) mg/dL POC Glucose (mg/dL) 142 H 196 H 201 H (75-99) mg/dL 06/26/19 06/26/19 Range/Units 07:29 07:29 WBC 13.7 H (3.8-10.6) k/uL MCHC 30.8 L (31.0-37.0) g/dL Neutrophils # 12.1 H (1.3-7.7) k/uL Chloride 94 L (98-107) mmol/L Carbon Dioxide 38 H (22-30) mmol/L BUN 23 H (9-20) mg/dL Glucose 218 H (74-99) mg/dL POC Glucose (mg/dL) (75-99) mg/dL Microbiology - Last 24 Hours (Table) 06/23/19 14:28 Blood Culture - Preliminary Blood No Growth after 48 hours Assessment and Plan Assessment: Impression: 1 acute exacerbation of COPD, patient is known to have history of severe COPD FEV1 of 27% of the predicted. 2 acute on chronic hypoxic respiratory failure secondary to above, oxygen dependent at 4 L/m per nasal cannula in the outpatient setting. 3 acute on chronic hypercapnic respiratory failure secondary to above, on home AVAPS device. 4 chronic left hemidiaphragm paralysis. 5 history of pulmonary embolism. 6 chronic and ongoing tobacco dependence syndrome. 7 left lower lobe atelectasis, strongly doubt pneumonia. Plan: The patient was seen and evaluated by Dr. Mcclendon. he is cleared for discharge from the pulmonary standpoint. Complete course of antibiotics. Complete a prednisone burst and taper. Continue his home pulmonary medications. He'll follow up with Dr. Zapata in our office as scheduled. He and his are both encouraged to call sooner with any recurrence of symptoms or other questions or concerns.. I, the cosigning physician, performed a history & physical examination of the patient. Lungs sounds with bilateral end expiratory wheeze, diminished Maintaining good O2 saturations in the 90s on 4 L/m per nasal cannula.. I discussed the assessment and plan of care with my nurse practitioner, Edna Nguyen. I attest to the above note as dictated by her.
--- NOTE | 2019-06-26 23:25 | DS ---
DISCHARGE SUMMARY DATE OF SERVICE: 06/26/2019. FINAL DIAGNOSES: 1. Chronic obstructive pulmonary disease, acute exacerbation, with acute hypoxic hypercarbic respiratory failure, present on admission, with acute left lower pneumonia, possibly gram-negative, possibly atelectasis. 2. History of asthma, intermittent. 3. History of congestive heart failure with ejection fraction unknown. 4. History of deep venous thrombosis. 5. Depression. 6. Change in mental status, acute metabolic encephalopathy, possibly secondary to hypercarbia. 7. History of pulmonary embolism. 8. History of methicillin-resistant Staphylococcus aeruginosa. 9. Continued and ongoing nicotine dependence. DISCHARGE DISPOSITION: The patient will be discharged in stable condition with guarded prognosis. Dr. Mcclendon cleared the patient for discharge. HISTORY OF PRESENT ILLNESS: This 54-year-old gentleman with a past medical history of multiple medical problems was admitted with COPD and pneumonia, treated with antibiotics, bronchodilators, steroids. Patient improved significantly. On exam, vitals are stable. CARDIOVASCULAR SYSTEM: S1, S2 muffled. ABDOMEN: Soft. NERVOUS SYSTEM: No focal deficit. DISCHARGE ADVICE AND MEDICATIONS: 1. Cardiac diet. 2. Activity limited until followup. 3. Follow up with Dr. Ho in 2-3 days. 4. Cardizem CD 120 mg p.o. daily. 5. K-Dur 10 mEq p.o. daily. 6. Lasix 20 mg p.o. daily. 7. Ventolin HFA 1-2 puffs q.6 p.r.n. 8. Xarelto 20 mg daily. 9. DuoNeb q.i.d. and p.r.n. 10.Habitrol 14 daily. 11.Levaquin 500 p.o. at bedtime. 12.Prednisone 40 mg daily for 3 days, 30 mg daily for 3 days, 20 mg daily for 3 days, 10 mg daily for 3 days. 13.Symbicort 160/4.5 one puff b.i.d. Once again, the patient will be discharged in stable condition with guarded prognosis. MMODL / IJN: [id number] /
== END 2019-06-26 11:41 | disposition home or self-care (01) | DRG 177 ==
LOC: EC 12:33 → 3NMEDONC 13:50 → 4MS4W 06-24 17:44
PROVIDERS: ADMIT Internal Medicine; ATTEND Internal Medicine
PROC: 5A09457 Assistance with Respiratory Ventilation, 24-96 Consecutive Hours, Continuous Positive Airway Pressure (ICD-10-PCS; principal; 2019-06-24)
DX: J15.6 Pneumonia due to other Gram-negative bacteria (principal); J96.22 Acute and chronic respiratory failure with hypercapnia; J96.21 Acute and chronic respiratory failure with hypoxia; G93.41 Metabolic encephalopathy; J44.1 Chronic obstructive pulmonary disease with (acute) exacerbation; J98.11 Atelectasis; J44.0 Chronic obstructive pulmonary disease with (acute) lower respiratory infection; J98.6 Disorders of diaphragm; I50.9 Heart failure, unspecified; F32.9 Major depressive disorder, single episode, unspecified; F17.210 Nicotine dependence, cigarettes, uncomplicated; Z99.81 Dependence on supplemental oxygen; Z79.01 Long term (current) use of anticoagulants; Z79.899 Other long term (current) drug therapy; Z86.14 Personal history of Methicillin resistant Staphylococcus aureus infection; Z86.718 Personal history of other venous thrombosis and embolism; Z86.711 Personal history of pulmonary embolism; Z88.0 Allergy status to penicillin; Z90.89 Acquired absence of other organs; Z80.9 Family history of malignant neoplasm, unspecified
CPT/HCPCS: 36415; 71045; 80048; 80053; 81003; 83735; 83880; 84145; 84484; 85025; 85610; 85730; 87040; 87070; 87205; 87502; 93005; 94640; 94644; 94760; 96365; 96367; 96375; 99285

== ENCOUNTER 2019-10-23 08:16 | Observation (INO) | payer MEDICARE ==
[2019-10-23] MEDS ORDERED: ONDANSETRON 4 MG/2 ML VIAL IVP STA (09:11)
[2019-10-23] MEDS ORDERED: MORPHINE SULFATE 4 MG/ML SYRINGE IVP STA (09:11)
[2019-10-23 09:40] LABS: Basophils # (A) 0.4 k/uL (0-0.2); Basophils % (A) 3 %; Eosinophils # (A) 0.2 k/uL (0-0.7); Eosinophils % (A) 2 %; HCT 49.6 % (39.0-53.0); HGB 15.6 gm/dL (13.0-17.5); Lymphocytes # (A) 3.3 k/uL (1.0-4.8); Lymphocytes % (A) 26 %; MCH 28.4 pg (25.0-35.0); MCHC 31.4 g/dL (31.0-37.0); MCV 90.7 fL (80.0-100.0); Mean Platelet Volume 7.4; Monocytes # (A) 0.8 k/uL (0-1.0); Monocytes % (A) 6 %; Neutrophils # (A) 7.9 k/uL (1.3-7.7); Neutrophils % (A) 62 %; Platelet Count 358 k/uL (150-450); RBC 5.47 m/uL (4.30-5.90); RDW 12.9 % (11.5-15.5); WBC 12.8 k/uL (3.8-10.6)
[2019-10-23 09:42] LABS: ALT 17 U/L (4-49); AST 22 U/L (17-59); African American GFR (CKD) >90 (>60 ml/min/1.73 sqM); Albumin 4.6 g/dL (3.5-5.0); Alkaline Phosphatase 75 U/L (38-126); Anion Gap 10 mmol/L; Blood Urea Nitrogen 13 mg/dL (9-20); Calcium 10.1 mg/dL (8.4-10.2); Carbon Dioxide 33 mmol/L (22-30); Chloride 96 mmol/L (98-107); Glucose 107 mg/dL (74-99); Non-African American GFR(CKD) >90 (>60 ml/min/1.73 sqM); Potassium 4.4 mmol/L (3.5-5.1); Sodium 139 mmol/L (137-145); Total Bilirubin 0.4 mg/dL (0.2-1.3); Total Protein 7.5 g/dL (6.3-8.2); Uric Acid 4.8 mg/dL (3.5-8.5)
--- NOTE | 2019-10-23 09:50 | XR ---
EXAMINATION TYPE: XR elbow complete LT DATE OF EXAM: 10/23/2019 COMPARISON: 04/21/2019 HISTORY: 54-year-old male with pain TECHNIQUE: 3 views FINDINGS: There is underlying elbow joint effusion. Some fragmented spurs at the triceps insertion. Mild overly ing soft tissue swelling over the olecranon. No acute fracture, subluxation, or dislocation seen. IMPRESSION: Underlying elbow joint effusion. No acute osseous abnormality seen. Further clinical correlation amy mmended as to etiology such as occult internal derangement. The patient reports a similar clinical pr esentation previously. Correlate with diagnosis at that time.
[2019-10-23 10:08] LABS: C Reactive Protein 8.3 mg/L (<10.0)
--- NOTE | 2019-10-23 10:10 | ED ---
Extremity Problem HPI - General Chief complaint: Extremity Problem,Nontraumatic Stated complaint: can't move lt arm Time Seen by Provider: 10/23/19 08:33 Source: patient, RN notes reviewed Mode of arrival: ambulatory Limitations: no limitations - History of Present Illness Initial comments: This a 54-year-old male presents emergency Department chief complaint severe left elbow pain. Patient states that it started overnight states he cannot move his arm so painful. He did admit that approximately 5-6 months ago he had similar problems in which she was diagnosed with septic septic joint. Patient states it feels exactly strain. Patient does have a history of DVTs in his legs, PEs is currently taking anticoagulants. Patient denies any chest pain or shortness of breath patient denies any discoloration to his left arm or any noted swelling of the abdomen and his left elbow. Patient denies trauma - Related Data Home Medications Medication Instructions Recorded Confirmed Albuterol Inhaler [Ventolin Hfa 1 - 2 puff INHALATION RT-Q6H PRN 08/01/17 10/23/19 Inhaler] Furosemide [Lasix] 20 mg PO BID 08/01/17 10/23/19 Potassium Chloride ER [K-Dur 10] 10 meq PO DAILY 08/01/17 10/23/19 Rivaroxaban [Xarelto] 20 mg PO DAILY 08/01/17 10/23/19 Diltiazem Cd [Cardizem CD] 120 mg PO DAILY 04/21/19 10/23/19 Albuterol Nebulized [Ventolin 2.5 mg INHALATION RT-Q6H PRN 10/23/19 10/23/19 Nebulized] Umeclidinium [place] [Incruse 1 puff INHALATION RT-DAILY 10/23/19 10/23/19 Ellipta] Allergies Allergy/AdvReac Type Severity Reaction Status Date / Time Penicillins Allergy Anaphylaxis Verified 10/23/19 09:25 Review of Systems ROS Statement: Those systems with pertinent positive or pertinent negative responses have been documented in the HPI. ROS Other: All systems not noted in ROS Statement are negative. Past Medical History Past Medical History: Asthma, Heart Failure, COPD, Deep Vein Thrombosis (DVT) Additional Past Medical History / Comment(s): depression,PE History of Any Multi-Drug Resistant Organisms: MRSA Date of last positivie culture/infection: 07/27/2014 MDRO Source:: Left leg Past Surgical History: Tonsillectomy Additional Past Surgical History / Comment(s): unknown right elbow surgery Past Anesthesia/Blood Transfusion Reactions: No Reported Reaction Past Psychological History: Depression Smoking Status: Current every day smoker Past Alcohol Use History: None Reported Past Drug Use History: None Reported - Past Family History Father Additional Family Medical History / Comment(s): blood clot Mother Family Medical History: Cancer General Exam Limitations: no limitations General appearance: alert, in no apparent distress Head exam: Present: atraumatic, normocephalic, normal inspection Eye exam: Present: normal appearance, PERRL, EOMI. Absent: scleral icterus, conjunctival injection, periorbital swelling Neck exam: Present: normal inspection, full ROM. Absent: tenderness, meningismus, lymphadenopathy Respiratory exam: Present: normal lung sounds bilaterally. Absent: respiratory distress, wheezes, rales, rhonchi, stridor Cardiovascular Exam: Present: regular rate, normal rhythm, normal heart sounds. Absent: systolic murmur, diastolic murmur, rubs, gallop, clicks Extremities exam: Present: other (Left elbow there is mild erythema mild i ncreased warmth severe tenderness with palpation in any range of motion active and passive neurovascular intact) Skin exam: Present: warm, dry, intact, normal color. Absent: rash Course Vital Signs 10/23/19 08:18 Temperature 97.9 F Pulse Rate 127 H Respiratory 21 Rate Blood Pressure 132/74 O2 Sat by Pulse 95 Oximetry Medical Decision Making - Medical Decision Making Patient's lactic acid is elevated, mild leukocytosis no significant elevation CRP though patient presents with septic arthritis symptoms with a history of this. Patient will be admitted with - Lab Data Result diagrams: 10/23/19 08:31 10/23/19 08:31 Lab Results 10/23/19 10/23/19 10/23/19 Range/Units 08:31 08:31 08:31 WBC 12.8 H (3.8-10.6) k/uL RBC 5.47 (4.30-5.90) m/uL Hgb 15.6 (13.0-17.5) gm/dL Hct 49.6 (39.0-53.0) % MCV 90.7 (80.0-100.0) fL MCH 28.4 (25.0-35.0) pg MCHC 31.4 (31.0-37.0) g/dL RDW 12.9 (11.5-15.5) % Plt Count 358 (150-450) k/uL Neutrophils % 62 % Lymphocytes % 26 % Monocytes % 6 % Eosinophils % 2 % Basophils % 3 % Neutrophils # 7.9 H (1.3-7.7) k/uL Lymphocytes # 3.3 (1.0-4.8) k/uL Monocytes # 0.8 (0-1.0) k/uL Eosinophils # 0.2 (0-0.7) k/uL Basophils # 0.4 H (0-0.2) k/uL Sodium 139 (137-145) mmol/L Potassium 4.4 (3.5-5.1) mmol/L Chloride 96 L (98-107) mmol/L Carbon Dioxide 33 H (22-30) mmol/L Anion Gap 10 mmol/L BUN 13 (9-20) mg/dL Creatinine 0.76 (0.66-1.25) mg/dL Est GFR (CKD-EPI)AfAm >90 (>60 ml/min/1.73 sqM) Est GFR (CKD-EPI)NonAf >90 (>60 ml/min/1.73 sqM) Glucose 107 H (74-99) mg/dL Plasma Lactic Acid Dl 2.2 H* (0.7-2.0) mmol/L Uric Acid 4.8 (3.5-8.5) mg/dL Calcium 10.1 (8.4-10.2) mg/dL Total Bilirubin 0.4 (0.2-1.3) mg/dL AST 22 (17-59) U/L ALT 17 (4-49) U/L Alkaline Phosphatase 75 (38-126) U/L C-Reactive Protein 8.3 (<10.0) mg/L Total Protein 7.5 (6.3-8.2) g/dL Albumin 4.6 (3.5-5.0) g/dL Disposition Clinical Impression: Septic arthritis of elbow Disposition: ADMITTED IP TO THIS HOSP Condition: Fair Referrals: Kareem Ho MD [Primary Care Provider] - 1-2 days
[2019-10-23] MEDS ORDERED: VANCOMYCIN IV PER PHARMACY 1 EACH MISC MISCELLANE PRN (10:45)
[2019-10-23] MEDS ORDERED: KETOROLAC 30 MG/ML 1 ML VIAL IVP PRN (10:46)
[2019-10-23] MEDS ORDERED: NALOXONE 0.4 MG/ML 1 ML VIAL IV PRN (10:46)
[2019-10-23] MEDS ORDERED: VANCOMYCIN 1,750 MG in SODIUM CHLORIDE 0.9% 500 ML 500 ML IVPB STA (10:50)
[2019-10-23] MEDS: MORPHINE SULFATE 4 MG/ML SYRINGE IV PRN ×3 (11:46→21:09)
--- NOTE | 2019-10-23 13:20 | P.CNOR ---
History of Present Illness - [facility] Consult date: 10/23/19 Consult reason: joint pain History of present illness: Patient is a 54-year-old male who presented to [facility] with regards to left elbow pain. Patient states that the pain started this morning, and it's very severe, he cannot move his elbow very much. Patient had a similar issue back in April involving his left elbow. Patient was admitted to the hospital at that time, he ended up undergoing an incision and drainage with irrigation and debridement of his left elbow Dr. Rudolph. The cult ures that were taken from surgery were all negative, and the patient progressed fine with no complications. It was determined that morbidly effusion involving the left elbow. At this time, he cannot remember any specific trauma. He denies any fevers or chills at this time. He has no other orthopedic complaints at this time. Review of Systems Constitutional: Reports as per HPI Past Medical History Past Medical History: Asthma, Heart Failure, COPD, Deep Vein Thrombosis (DVT) Additional Past Medical History / Comment(s): depression,PE History of Any Multi-Drug Resistant Organisms: MRSA Year Discovered:: 07/27/2014 MDRO Source:: Left leg Past Surgical History: Tonsillectomy Additional Past Surgical History / Comment(s): unknown right elbow surgery Past Anesthesia/Blood Transfusion Reactions: No Reported Reaction Past Psychological History: Depression Smoking Status: Current every day smoker Past Alcohol Use History: None Reported Past Drug Use History: None Reported - Past Family History Father Additional Family Medical History / Comment(s): blood clot Mother Family Medical History: Cancer Medications and Allergies Home Medications Medication Instructions Recorded Confirmed Type Albuterol Inhaler [Ventolin Hfa 1 - 2 puff INHALATION RT-Q6H PRN 08/01/17 10/23/19 History Inhaler] Furosemide [Lasix] 20 mg PO BID 08/01/17 10/23/19 History Potassium Chloride ER [K-Dur 10] 10 meq PO DAILY 08/01/17 10/23/19 History Rivaroxaban [Xarelto] 20 mg PO DAILY 08/01/17 10/23/19 History Diltiazem Cd [Cardizem CD] 120 mg PO DAILY 04/21/19 10/23/19 History Albuterol Nebulized [Ventolin 2.5 mg INHALATION RT-Q6H PRN 10/23/19 10/23/19 History Nebulized] Umeclidinium [place] [Incruse 1 puff INHALATION RT-DAILY 10/23/19 10/23/19 History Ellipta] Allergies Allergy/AdvReac Type Severity Reaction Status Date / Time Penicillins Allergy Anaphylaxis Verified 10/23/19 09:25 Physical Examination Left upper extremity: No obvious open lesions or sores present, no significant areas of soft tissue swelling, no erythema Patient is very guarded at this time, he has the elbow at about a 90 angle, active motion and passive motion reproduces significant discomfort. I am able to internal and externally rotate the forearm, minimal discomfort No tenderness with palpation throughout the forearm, wrist or hand. There is no tenderness palpation surrounding the shoulder [place] shoulder range of motion is intact Sensation to light touch throughout the extremities intact, radial pulses 2+ Results - Labs Labs: Abnormal Lab Results - Last 24 Hours (Table) 10/23/19 10/23/19 10/23/19 Range/Units 08:31 08:31 08:31 WBC 12.8 H (3.8-10.6) k/uL Neutrophils # 7.9 H (1.3-7.7) k/uL Basophils # 0.4 H (0-0.2) k/uL Chloride 96 L (98-107) mmol/L Carbon Dioxide 33 H (22-30) mmol/L Glucose 107 H (74-99) mg/dL Plasma Lactic Acid Dl 2.2 H* (0.7-2.0) mmol/L H & H 10/23/19 Range/Units 08:31 Hgb 15.6 (13.0-17.5) gm/dL Hct 49.6 (39.0-53.0) % Result Diagrams: 10/23/19 08:31 10/23/19 08:31 - Diagnostic results Elbow x-ray: report reviewed, image reviewed Assessment and Plan Plan: Imaging: X-rays of the left elbow are obtained. Images demonstrated no acute fractures or dislocations. Report notes effusion present around the elbow. Assessment: 1. Left elbow pain 2. Previous left elbow surgery 3. Multiple medical comorbidities Plan: I was able to discuss the case with my attending Dr. Rudolph, including with physical exam findings imaging studies. No orthopedic surgical intervention recommended at this time. Reviewing patient's culture results from his last admission, everything was negative for infection. We'll consult infectious disease for recommendations Considering possible inflammatory arthritis as source of effusion and pain Medical recommendations Pain control We'll continue to follow patient during inpatient stay Time with Patient: Less than 30
--- NOTE | 2019-10-23 16:06 | P.HPIM ---
History of Present Illness Patient is a 54-year-old male came in with complaints of severe 10/10 sharp pain in the left elbow. Patient was a treated for similar condition in the past at the time patient had incision and drainage at that time no infection was found patient was treated for inflammatory arthritis. Upon exam patient does not appear to have any severe inflammatory arthritis or infectious arthritis no symptoms swelling no significant redness was appreciated infectious disease was consulted the recommending BX discontinue additional antibiotics and computed tomography scan of the left elbow are being obtained. Patient has nicotine abuse history can use to smoke heavily patient was extensively counseled regarding that in spite of which patient is not willing to quit smoking patient uses 4 L of oxygen appears to have advanced COPD. Patient is wheezing on exam patient is little bit more short of breath than usual complaint of cough without any sputum production patient denied any fever chills. had history of DVT for which patient is on anticoagulation at this time. Review of Systems REVIEW OF SYSTEMS: CONSTITUTIONAL: No fever, no malaise, no fatigue. HEENT: No recent visual problems or hearing problems. Denied any sore throat. CARDIOVASCULAR: No chest pain, orthopnea, PND, no palpitations, no syncope. PULMONARY: no hemoptysis. GASTROINTESTINAL: No diarrhea, no nausea, no vomiting, no abdominal pain. NEUROLOGICAL: No headaches, no weakness, no numbness. HEMATOLOGICAL: Denies any bleeding or petechiae. GENITOURINARY: Denies any burning micturition, frequency, or urgency. MUSCULOSKELETAL/RHEUMATOLOGICAL: As mentioned in HPI ENDOCRINE: Denies any polyuria or polydipsia. The rest of the 14-point review of systems is negative. Past Medical History Past Medical History: Heart Failure, COPD, Deep Vein Thrombosis (DVT), Neurologic Disorder, Pneumonia, Pulmonary Embolus (PE), Vascular Disorder Additional Past Medical History / Comment(s): Chronic respiratory failure with home oxygen at 4L/NC ATC and a ventilator for HS, bronchitis, pleurisy, bilateral PEs, DVT L lower leg, L reflex sympathetic dystrophy, past L elbow septic joint, chronic low back pain, varicosities History of Any Multi-Drug Resistant Organisms: MRSA Date of last positivie culture/infection: 07/27/2014 MDRO Source:: Left leg Past Surgical History: Tonsillectomy Additional Past Surgical History / Comment(s): L elbow I&D Past Anesthesia/Blood Transfusion Reactions: No Reported Reaction Smoking Status: Current every day smoker - Past Family History Father Family Medical History: No Reported History Additional Family Medical History / Comment(s): Father was healthy Mother Family Medical History: Cancer Additional Family Medical History / Comment(s): Pt cannot recall type of cancer. Medications and Allergies Home Medications Medication Instructions Recorded Confirmed Type Albuterol Inhaler [Ventolin Hfa 1 - 2 puff INHALATION RT-Q6H PRN 08/01/17 10/23/19 History Inhaler] Furosemide [Lasix] 20 mg PO BID 08/01/17 10/23/19 History Potassium Chloride ER [K-Dur 10] 10 meq PO DAILY 08/01/17 10/23/19 History Rivaroxaban [Xarelto] 20 mg PO DAILY 08/01/17 10/23/19 History Diltiazem Cd [Cardizem CD] 120 mg PO DAILY 04/21/19 10/23/19 History Albuterol Nebulized [Ventolin 2.5 mg INHALATION RT-Q6H PRN 10/23/19 10/23/19 History Nebulized] Umeclidinium [place] [Incruse 1 puff INHALATION RT-DAILY 10/23/19 10/23/19 History Ellipta] Allergies Allergy/AdvReac Type Severity Reaction Status Date / Time Penicillins Allergy Anaphylaxis Verified 10/23/19 09:25 Physical Exam Vitals: Vital Signs Temp Pulse Resp BP Pulse Ox 10/23/19 12:37 84 16 111/72 95 10/23/19 10:49 65 16 111/72 97 10/23/19 08:18 97.9 F 127 H 21 132/74 95 Intake and Output 10/23/19 10/23/19 10/23/19 06:59 14:59 22:59 Other: Weight 104.326 kg 104.326 kg PHYSICAL EXAMINATION: GENERAL: The patient is alert and oriented x3, not in any acute distress. Well developed, well nourished. HEENT: Pupils are round and equally reacting to light. EOMI. No scleral icterus. No conjunctival pallor. Normocephalic, atraumatic. No pharyngeal erythema. No thyromegaly. CARDIOVASCULAR: S1 and S2 present. No murmurs, rubs, or gallops. PULMONARY: Decreased air entry with significant expiratory wheezing on exam ABDOMEN: Soft, nontender, nondistended, normoactive bowel sounds. No palpable organomegaly. MUSCULOSKELETAL: No joint swelling or deformity. Left elbow is not significantly swollen and no significant redness in that area EXTREMITIES: No cyanosis, clubbing, or pedal edema. NEUROLOGICAL: Gross neurological examination did not reveal any focal deficits. SKIN: No rashes. Results CBC & Chem 7: 10/23/19 08:31 10/23/19 08:31 Labs: Abnormal Lab Results - Last 24 Hours (Table) 10/23/19 10/23/19 10/23/19 Range/Units 08:31 08:31 08:31 WBC 12.8 H (3.8-10.6) k/uL Neutrophils # 7.9 H (1.3-7.7) k/uL Basophils # 0.4 H (0-0.2) k/uL Chloride 96 L (98-107) mmol/L Carbon Dioxide 33 H (22-30) mmol/L Glucose 107 H (74-99) mg/dL Plasma Lactic Acid Dl 2.2 H* (0.7-2.0) mmol/L Thrombosis Risk Factor Assmnt - Choose All That Apply Any of the Below Risk Factors Present?: Yes Each Factor Represents 1 point: Abnormal pulmonary function (COPD), Age 41-60 years, Obesity (BMI >25), Sepsis (< 1month) Other Risk Factors: Yes Each Risk Factor Represents 3 Points: History of DVT/PE Other congenital or acquired thrombophilia - If yes, enter type in comment: No Thrombosis Risk Factor Assessment Total Risk Factor Score: 7 Thrombosis Risk Factor Assessment Level: High Risk Assessment and Plan Plan: -Left elbow plain possibility of inflammatory arthritis cannot be ruled out patient will be started on nonsteroidal anti-inflammatory. No significant clinical evidence of infection. Infectious disease evaluated the patient antiemetics probably will risk and urine record recommending computed tomography scan of the left elbow. -COPD and chronic hypercapnic respiratory failure with the COPD exacerbation patient was started on systemic steroids inhalational treatments. Extensive nicotine cessation counseling was provided patient is not willing to quit smoking patient uses BiPAP at nighttime -DVT and PE in the past patient is presently on anti-coagulation at to be continued -Depression GI prophylaxis with Pepcid
--- NOTE | 2019-10-23 17:01 | CT ---
EXAMINATION TYPE: CT elbow LT w con DATE OF EXAM: 10/23/2019 COMPARISON: None HISTORY: Left elbow pain starting today. Possible osteomyelitis. CT DLP: 1443.2 mGycm Automated exposure control for dose reduction was used. CONTRAST: Performed with IV Contrast, patient injected with 100 mL of Isovue 300. Multiple axial sections were obtained from the mid humerus to the proximal ulna with intravenous cont rast. Distal humerus is intact. Proximal radius and ulna appear intact. Joint spaces are fairly normal. The re is no sign of elbow joint effusion. I see no focal bone destruction. There is no evidence of a sof t tissue mass. There is no pathologic enhancement. There is no pathologic fluid collection. IMPRESSION: Negative CT scan of the left elbow. No evidence of osteomyelitis. If there is persistent clinical ind ication bone scan or MR scan is recommended and is more sensitive to detect acute osteomyelitis.
[2019-10-23] MEDS: predniSONE 20 MG TAB PO SCH (17:16)
[2019-10-23] MEDS: IPRATROPIUM-ALBUTEROL 3 ML NEB INHALATION PRN ×2 (17:21→20:40)
[2019-10-23] MEDS: IPRATROPIUM-ALBUTEROL 3 ML NEB INHALATION SCH (20:15)
[2019-10-23] MEDS: FAMOTIDINE 20 MG TAB PO SCH (21:09)
--- NOTE | 2019-10-23 21:37 | P.CONS ---
History of Present Illness - Reason for Consult Consult date: 10/23/19 left lebow septic arthritis Requesting physician: Musa Rudolph - Chief Complaint left elbow pain x 1 day - History of Present Illness Patient is a 54-year male presenting to the ER at [facility] with chief complaints of left elbow pain that apparently started this morning patient denies any history of any trauma patient describes the pain to be sharp almost 10/10 and worse with movement of the elbow joint patient currently did not have any open wound or any redness to the left elbow area and denies having any fever or any chills apparently the patient did have a similar issue back in April 2019 at which point we did have I&D with irrigation department of the left elbow by Dr. Lantigua cultures that are needed to be negative patient on presentation to hospital has been afebrile patient white was more elevated 4.8 however his sed rate was 4 and a CRP of 8.3 normal lactic acid was elevated two- point 2 repeat is 0.9 patient has been started on Rocephin and vancomycin infectious was consulted for further recommendation about antibiotic therapy w ith concern for possible left elbow septic arthritis patient did have x-rays of the left elbow today shows joint effusion no acute bony abnormality seen. Review of Systems Positive point has been mentioned in HPI rest of the systems are negative Past Medical History Past Medical History: Heart Failure, COPD, Deep Vein Thrombosis (DVT), Neurologic Disorder, Pneumonia, Pulmonary Embolus (PE), Vascular Disorder Additional Past Medical History / Comment(s): Chronic respiratory failure with home oxygen at 4L/NC ATC and a ventilator for HS, bronchitis, pleurisy, bilateral PEs, DVT L lower leg, L reflex sympathetic dystrophy, past L elbow septic joint, chronic low back pain, varicosities History of Any Multi-Drug Resistant Organisms: MRSA Year Discovered:: 07/27/2014 MDRO Source:: Left leg Past Surgical History: Tonsillectomy Additional Past Surgical History / Comment(s): L elbow I&D Past Anesthesia/Blood Transfusion Reactions: No Reported Reaction Smoking Status: Current every day smoker - Past Family History Father Family Medical History: No Reported History Additional Family Medical History / Comment(s): Father was healthy Mother Family Medical History: Cancer Additional Family Medical History / Comment(s): Pt cannot recall type of cancer. Medications and Allergies Home Medications Medication Instructions Recorded Confirmed Type Albuterol Inhaler [Ventolin Hfa 1 - 2 puff INHALATION RT-Q6H PRN 08/01/17 10/23/19 History Inhaler] Furosemide [Lasix] 20 mg PO BID 08/01/17 10/23/19 History Potassium Chloride ER [K-Dur 10] 10 meq PO DAILY 08/01/17 10/23/19 History Rivaroxaban [Xarelto] 20 mg PO DAILY 08/01/17 10/23/19 History Diltiazem Cd [Cardizem CD] 120 mg PO DAILY 04/21/19 10/23/19 History Albuterol Nebulized [Ventolin 2.5 mg INHALATION RT-Q6H PRN 10/23/19 10/23/19 History Nebulized] Umeclidinium [place] [Incruse 1 puff INHALATION RT-DAILY 10/23/19 10/23/19 History Ellipta] Allergies Allergy/AdvReac Type Severity Reaction Status Date / Time Penicillins Allergy Anaphylaxis Verified 10/23/19 09:25 Physical Exam Vitals: Vital Signs Temp Pulse Pulse Resp BP BP Pulse Ox 10/23/19 21:19 98.6 F 73 22 116/64 92 L 10/23/19 20:48 84 10/23/19 20:42 98.4 F 86 18 115/72 97 10/23/19 20:41 92 10/23/19 17:34 85 10/23/19 17:22 86 10/23/19 16:26 98.0 F 84 18 112/70 98 10/23/19 12:37 84 16 111/72 95 10/23/19 10:49 65 16 111/72 97 10/23/19 08:18 97.9 F 127 H 21 132/74 95 Intake and Output 10/23/19 10/23/19 10/23/19 06:59 14:59 22:59 Other: Weight 104.326 kg 104.326 kg GENERAL DESCRIPTION: Middle-aged male lying in bed, no distress. No tachypnea or accessory muscle of respiration use. HEENT: Shows Pallor , no scleral icterus. Oral mucous membrane is dry. NECK: Trachea central, no thyromegaly. LUNGS: Unlabored breathing. Clear to auscultation anteriorly. No wheeze or crackle. HEART: S1, S2, regular rate and rhythm. ABDOMEN: Soft, no tenderness , guarding or rigidity EXTREMITIES: No edema of feet. Left elbow currently with open wound no swelling no redness however it is tender to touch the patient is resisting any movement of the elbow joint SKIN: No rash, no masses palpable. NEUROLOGICAL: The patient is awake, alert, oriented x3, mood and affect normal. Results CBC & Chem 7: 10/23/19 08:31 10/23/19 08:31 Labs: Abnormal Lab Results - Last 24 Hours (Table) 10/23/19 10/23/19 10/23/19 Range/Units 08:31 08:31 08:31 WBC 12.8 H (3.8-10.6) k/uL Neutrophils # 7.9 H (1.3-7.7) k/uL Basophils # 0.4 H (0-0.2) k/uL Chloride 96 L (98-107) mmol/L Carbon Dioxide 33 H (22-30) mmol/L Glucose 107 H (74-99) mg/dL Plasma Lactic Acid Dl 2.2 H* (0.7-2.0) mmol/L Assessment and Plan Assessment: -patient had presented to the hospital acute pain to the left elbow area and this patient apparently did have similar symptoms in April 2019 at that point the patient did have I&D and those cultures were negative on today's visit and the patient is afebrile but he did have a normal sed rate and a CRP with no evidence of any swelling or redness at the elbow joint making it very unlikely a septic arthritis though not entirely excluded (1) Left elbow pain Current Visit: Yes Status: Acute Code(s): M25.522 - PAIN IN LEFT ELBOW SNOMED Code(s): 03653983 Plan: 1-We will discontinue the vancomycin as we need to establish the diagnosis first before committing ourself to any further antibiotic therapy 2-we will obtain a CT of the left elbow to see if there is any evidence of any bony changes or joint effusion which is possible I will discuss with Ortho for aspirating of the same to rule out septic arthritis or crystal induced inflammatory arthritis We will follow on clinical condition and cultures to further adjust medication if needed Thank you for this consultation we will follow the patient along with you Time with Patient: Greater than 30
[2019-10-23] MEDS ORDERED: VANCOMYCIN 1,500 MG in SODIUM CHLORIDE 0.9% 250 ML IVPB SCH (22:00)
[2019-10-24] MEDS: IPRATROPIUM-ALBUTEROL 3 ML NEB INHALATION PRN (04:23)
[2019-10-24] MEDS: MORPHINE SULFATE 4 MG/ML SYRINGE IV PRN ×2 (04:51→08:40)
[2019-10-24 04:55] VITALS: TEMP 97.8
[2019-10-24] MEDS: IPRATROPIUM-ALBUTEROL 3 ML NEB INHALATION SCH ×2 (07:36→11:23)
[2019-10-24] MEDS: predniSONE 20 MG TAB PO SCH (08:30)
[2019-10-24] MEDS: FAMOTIDINE 20 MG TAB PO SCH (08:30)
[2019-10-24] MEDS ORDERED: RIVAROXABAN 20 MG TAB PO SCH (09:00)
[2019-10-24] MEDS ORDERED: DILTIAZEM CD 120 MG CAP.ER.24H PO SCH (09:00)
--- NOTE | 2019-10-24 09:05 | P.PN ---
Subjective Progress Note Date: 10/24/19 Principal diagnosis: Left elbow pain/synovitis The patient notes some improvement since his admission with pain medications/prednisone. Objective - Vital Signs Vital signs: Vital Signs Temp 97.8 F 10/24/19 04:55 Pulse 80 10/24/19 07:50 Resp 18 10/24/19 04:55 BP 115/67 10/24/19 04:55 Pulse Ox 92 L 10/24/19 04:55 Intake & Output 10/23/19 10/24/19 10/24/19 18:59 06:59 18:59 Weight 104.326 kg Other: Voiding Method Toilet # Voids 1 - Exam Left elbow range of motion -60 full extension to 100 of flexion Full pronation and supination left forearm No warmth or erythema left elbow Distal neurovascular exam intact left upper extremity - Labs CBC & Chem 7: 10/23/19 08:31 10/23/19 08:31 Labs: Abnormal Lab Results - Last 24 Hours (Table) 10/23/19 10/23/19 10/23/19 Range/Units 08:31 08:31 08:31 WBC 12.8 H (3.8-10.6) k/uL Neutrophils # 7.9 H (1.3-7.7) k/uL Basophils # 0.4 H (0-0.2) k/uL Chloride 96 L (98-107) mmol/L Carbon Dioxide 33 H (22-30) mmol/L Glucose 107 H (74-99) mg/dL Plasma Lactic Acid Dl 2.2 H* (0.7-2.0) mmol/L - Imaging and Cardiology Computed tomography scan left elbow showed no definite osteomyelitis or significant effusion. Assessment and Plan Assessment: Left elbow synovitis/pain Severe COPD Plan: At this point his laboratory studies do not show evidence of infectious process with normal sed rate and C-reactive protein. His computed tomography scan does not show significant effusion, therefore aspiration of the elbow would be difficult and likely non-diagnostic. Recommend continued conservative measures with analgesics/prednisone. Will follow. Time with Patient: Less than 30
[2019-10-24 12:03] VITALS: BP 113/53; PULSE 91; RESP 17
--- NOTE | 2019-10-24 13:38 | PN ---
PROGRESS NOTE DATE OF SERVICE: 10/24/2019. REASON FOR FOLLOWUP: Left elbow pain and question of septic arthritis. INTERVAL HISTORY: The patient is currently afebrile, has been breathing comfortably. Pain to the left elbow area has decreased. It is about 7 out of 10 compared to 10out of 10 yesterday. The patient denies having any chest pain, shortness of breath or cough. No abdominal pain or diarrhea. PHYSICAL EXAMINATION: Blood pressure is 113/53 with a pulse of 91, temperature 97.8. He is 90% on 4 L nasal cannula. General description is a middle-aged male lying in bed in no distress. RESPIRATORY SYSTEM: Unlabored breathing, clear to auscultation anteriorly. HEART: S1, S2. Regular rate and rhythm. ABDOMEN: Soft, no tenderness. Left elbow currently with no swelling, no redness, no open wound or any drainage. LABS: Lactic acid was 0.9. Blood culture so far pending. CT left elbow did not show any effusion or bony changes. DIAGNOSTIC IMPRESSION AND PLAN: Patient with left elbow pain, possible inflammatory arthritis. Clinically doubt infectious etiology in this patient with no fever. CRP, sedimentation rate were normal. CT did not show any effusion and there is no redness on the surface of the left elbow. Recommend no antibiotics. Continue with prednisone per admitting team. Continue with supportive care. MMODL / IJN: [id number] / GARCIA
--- NOTE | 2019-10-24 14:54 | P.DS ---
Providers Date of admission: 10/23/19 10:34 Attending physician: Leti Siddiqui Consults: 10/23/19 10:47 Consult Physician Urgent Consulting Provider: Musa Rudolph Consult Reason/Comments: Established patient septic arthritis Do you want consulting provider notified?: Yes 10/24/19 07:08 Consult Physician Routine Consulting Provider: Dalton Elmore Consult Reason/Comments: left elbow pain/effusion, possible infection Do you want consulting provider notified?: Yes Primary care physician: Vic Jenkins [facility] Course: 54-year-old male came in with complaints of severe 10/10 sharp pain in the left elbow. Patient was a treated for similar condition in the past at the time patient had incision and drainage at that time no infection was found patient was treated for inflammatory arthritis. Upon exam patient does not appear to have any severe inflammatory arthritis or infectious arthritis no symptoms swelling no significant redness was appreciated infectious disease was consulted the recommending BX discontinue additional antibiotics and computed tomography scan of the left elbow are being obtained. Patient has nicotine abuse history can use to smoke heavily patient was extensively counseled regarding that in spite of which patient is not willing to quit smoking patient uses 4 L of oxygen appears to have advanced COPD. Patient is wheezing on exam patient is little bit more short of breath than usual complaint of cough without any sputum production patient denied any fever chills. had history of DVT for which patient is on anticoagulation at this time. 10/24/2019 Patient is still complaining of pain but the his clinical findings does not explain his pain. Patient had a CAT scan which did not show any ostomy pneumonitis clinically patient doesn't appear to have any infection no further testing is necessary and patient will be discharged today and anti-inflammatory switch is systemic steroids patient was asked to take as needed Motrin if needed for pain. Patient wheezing significantly improved prednisone will help with inflammation and COPD as well. Patient does exhibit opiate seeking behavior. PHYSICAL EXAMINATION: GENERAL: The patient is alert and oriented x3, not in any acute distress. Well developed, well nourished. HEENT: Pupils are round and equally reacting to light. EOMI. No scleral icterus. No conjunctival pallor. Normocephalic, atraumatic. No pharyngeal erythema. No thyromegaly. CARDIOVASCULAR: S1 and S2 present. No murmurs, rubs, or gallops. PULMONARY: Air entry with minimal wheezing today. ABDOMEN: Soft, nontender, nondistended, normoactive bowel sounds. No palpable organomegaly. MUSCULOSKELETAL: No joint swelling or deformity. EXTREMITIES: No cyanosis, clubbing, or pedal edema. NEUROLOGICAL: Gross neurological examination did not reveal any focal deficits. SKIN: No rashes. Assessment and Plan Plan: -Left elbow pain possibility of inflammatory arthritis cannot be ruled out pa tient will be started on nonsteroidal anti-inflammatory. No significant clinical or radiological evidence of infection. Patient not requiring antibiotics -COPD and chronic hypercapnic respiratory failure with the COPD exacerbation proved now wheezing significantly improved -DVT and PE in the past patient is presently on anti-coagulation at to be continued -Depression -Continued nicotine use: Counseling was provided Patient Condition at Discharge: Fair Plan - Discharge Summary Discharge Rx Participant: No New Discharge Prescriptions: New Fluticasone/Salmeterol [Advair 250-50 Diskus] 1 inhalation PO BID #1 inhaler Famotidine [Pepcid] 20 mg PO BID #30 tablet predniSONE 10 mg PO DAILY #30 tab Tiotropium [employer] [Spiriva] 1 cap INHALATION DAILY #1 device No Action Albuterol Inhaler [Ventolin Hfa Inhaler] 1 - 2 puff INHALATION RT-Q6H PRN PRN Reason: Shortness Of Breath Rivaroxaban [Xarelto] 20 mg PO DAILY Potassium Chloride ER [K-Dur 10] 10 meq PO DAILY Furosemide [Lasix] 20 mg PO BID Diltiazem Cd [Cardizem CD] 120 mg PO DAILY Umeclidinium [employer] [Incruse Ellipta] 1 puff INHALATION RT-DAILY Albuterol Nebulized [Ventolin Nebulized] 2.5 mg INHALATION RT-Q6H PRN PRN Reason: Shortness Of Breath Discharge Medication List Albuterol Inhaler [Ventolin Hfa Inhaler] 1 - 2 puff INHALATION RT-Q6H PRN 08/01/17 [History] Furosemide [Lasix] 20 mg PO BID 08/01/17 [History] Potassium Chloride ER [K-Dur 10] 10 meq PO DAILY 08/01/17 [History] Rivaroxaban [Xarelto] 20 mg PO DAILY 08/01/17 [History] Diltiazem Cd [Cardizem CD] 120 mg PO DAILY 04/21/19 [History] Albuterol Nebulized [Ventolin Nebulized] 2.5 mg INHALATION RT-Q6H PRN 10/23/19 [History] Umeclidinium [employer] [Incruse Ellipta] 1 puff INHALATION RT-DAILY 10/23/19 [History] Famotidine [Pepcid] 20 mg PO BID #30 tablet 10/24/19 [Rx] Fluticasone/Salmeterol [Advair 250-50 Diskus] 1 inhalation PO BID #1 inhaler 10/24/19 [Rx] Tiotropium [employer] [Spiriva] 1 cap INHALATION DAILY #1 device 10/24/19 [Rx] predniSONE 10 mg PO DAILY #30 tab 10/24/19 [Rx] Follow up Appointment(s)/Referral(s): Kareem Ho MD [Primary Care Provider] - 10/30/19 1:20 pm Patient Instructions/Handouts: Famotidine (By mouth), Prednisone (By mouth), Fluticasone/Salmeterol (By breathing), Tiotropium (By breathing) Discharge Disposition: HOME SELF-CARE
== END 2019-10-24 14:35 | disposition home or self-care (01) ==
LOC: EC 08:16 → 6NMEDSUR 10:34 → 5NMEDONC 20:02
PROVIDERS: ADMIT Hospitalist; ATTEND Hospitalist
DX: M25.522 Pain in left elbow (principal); J96.12 Chronic respiratory failure with hypercapnia; J44.1 Chronic obstructive pulmonary disease with (acute) exacerbation; F17.200 Nicotine dependence, unspecified, uncomplicated; Z86.711 Personal history of pulmonary embolism; Z86.718 Personal history of other venous thrombosis and embolism; F32.9 Major depressive disorder, single episode, unspecified; E66.9 Obesity, unspecified; Z68.25 Body mass index [BMI] 25.0-25.9, adult; Z99.81 Dependence on supplemental oxygen; Z79.51 Long term (current) use of inhaled steroids; Z79.01 Long term (current) use of anticoagulants; Z79.899 Other long term (current) drug therapy; I50.9 Heart failure, unspecified; Z86.14 Personal history of Methicillin resistant Staphylococcus aureus infection
CPT/HCPCS: 36415; 94640 ×4; 80053; 85652; 83605; 84550; 85025; 86140; 87040; 73080; 73201; G0378 ×2; J3370; J2270 ×2; J2405; J0696; J1885; J7512 ×2; Q9967; 96365; 96366; 96367; 96375; 96376; 99284

== ENCOUNTER 2019-10-25 22:54 | Emergency (ER) | payer MEDICARE ==
[2019-10-25 23:01] VITALS: BP 126/83; PULSE 105; RESP 22; TEMP 97.7
[2019-10-25] MEDS ORDERED: KETOROLAC 30 MG/ML 1 ML VIAL IM STA (23:32)
--- NOTE | 2019-10-25 23:36 | ED ---
Extremity Problem HPI - General Chief complaint: Extremity Problem,Nontraumatic Stated complaint: L Arm Pain Time Seen by Provider: 10/25/19 23:21 Source: patient Mode of arrival: ambulatory Limitations: no limitations - History of Present Illness Initial comments: David is a 54-year-old gentleman who presents to the emergency department today for reevaluation of left elbow pain. Patient states that approximately one year ago he had a septic elbow which required surgical intervention. He was seen and evaluated 2 days ago in the emergency department he was admitted to the hospital he had blood cultures a computed tomography scan and evaluation by orthopedic determination was made that he did not have a septic elbow at this time he had an inflammatory arthritis needs a slight discharge home. Patient states that when he was evaluated by the physician at discharge she was told this and she is not having any respiratory distress to go home and he got gasoline no answers but without bony doesn't note going on he still thinks he needs surgery so he returned to the hospital. Patient also states he was discharged home on steroids but no other medications. Patient has not attempted to treat the pain at home he has not taken any anti-inflammatories applied any heat or ice or splinting. - Related Data Home Medications Medication Instructions Recorded Confirmed Albuterol Inhaler [Ventolin Hfa 1 - 2 puff INHALATION RT-Q6H PRN 08/01/17 10/23/19 Inhaler] Furosemide [Lasix] 20 mg PO BID 08/01/17 10/23/19 Potassium Chloride ER [K-Dur 10] 10 meq PO DAILY 08/01/17 10/23/19 Rivaroxaban [Xarelto] 20 mg PO DAILY 08/01/17 10/23/19 Diltiazem Cd [Cardizem CD] 120 mg PO DAILY 04/21/19 10/23/19 Albuterol Nebulized [Ventolin 2.5 mg INHALATION RT-Q6H PRN 10/23/19 10/23/19 Nebulized] Umeclidinium [place] [Incruse 1 puff INHALATION RT-DAILY 10/23/19 10/23/19 Ellipta] Previous Rx's Medication Instructions Recorded Famotidine [Pepcid] 20 mg PO BID #30 tablet 10/24/19 Fluticasone/Salmeterol [Advair 1 inhalation PO BID #1 inhaler 10/24/19 250-50 Diskus] Tiotropium [place] [Spiriva] 1 cap INHALATION DAILY #1 device 10/24/19 predniSONE 10 mg PO DAILY #30 tab 10/24/19 Acetaminophen [Tylenol] 500 mg PO Q4-6H PRN #30 tab 10/25/19 Diclofenac Sodium Gel [Voltaren 2 gm TOPICAL QID #1 tube 10/25/19 Gel] Ibuprofen [Motrin] 800 mg PO Q6H PRN #30 tab 10/25/19 Allergies Allergy/AdvReac Type Severity Reaction Status Date / Time Penicillins Allergy Anaphylaxis Verified 10/25/19 23:01 Review of Systems ROS Statement: Those systems with pertinent positive or pertinent negative responses have been documented in the HPI. ROS Other: All systems not noted in ROS Statement are negative. Past Medical History Past Medical History: Heart Failure, COPD, Deep Vein Thrombosis (DVT), Neurologic Disorder, Pneumonia, Pulmonary Embolus (PE), Vascular Disorder Additional Past Medical History / Comment(s): Chronic respiratory failure with home oxygen at 4L/NC ATC and a ventilator for HS, bronchitis, pleurisy, bilateral PEs, DVT L lower leg, L reflex sympathetic dystrophy, past L elbow septic joint, chronic low back pain, varicosities History of Any Multi-Drug Resistant Organisms: MRSA Date of last positivie culture/infection: 07/27/2014 MDRO Source:: Left leg Past Surgical History: Tonsillectomy Additional Past Surgical History / Comment(s): L elbow I&D Past Anesthesia/Blood Transfusion Reactions: No Reported Reaction Past Psychological History: Depression Smoking Status: Current every day smoker Past Alcohol Use History: None Reported Past Drug Use History: None Reported - Past Family History Father Family Medical History: No Reported History Additional Family Medical History / Comment(s): Father was healthy Mother Family Medical History: Cancer Additional Family Medical History / Comment(s): Pt cannot recall type of cancer. General Exam - General Exam Comments Initial Comments: Physical Exam GENERAL: Patient is well-developed and well-nourished. Patient is nontoxic and well-hydrated and is in no distress. HENT: Normocephalic, Atraumatic. EYES: PERRL, EOMI PULMONARY: Unlabored respirations. Wearing supplemental oxygen CARDIOVASCULAR: RRR Warm and well perfused extremities ABDOMEN: Non-distended SKIN: No rashes or bruising No erythema overlying left elbow : Deferred NEUROLOGIC: Alert and oriented MUSCULOSKELETAL: Decreased range of motion left elbow secondary to pain. When I attempted passive range of motion the patient will growled at me PSYCHIATRIC: No SI/HI Limitations: no limitations Course Vital Signs 10/25/19 22:55 Temperature 97.7 F Pulse Rate 105 H Respiratory 22 Rate Blood Pressure 126/83 O2 Sat by Pulse 91 L Oximetry Medical Decision Making - Medical Decision Making Patient was seen and evaluated history is obtained from patient and review of medical record. Patient reports she's had pain in his left elbow for 3 days, he was admitted to the hospital for this but was discharged home because he was not in any respiratory distress, states that they didn't do anything for his elbow and nobody gave him any answers so he returned for reevaluation. Evaluation of the patient's chart patient did have a septic workup he had no leukocytosis no elevation of CRP he had x-rays as well as a computed tomography scan of the elbow which was negative for any signs of osteomyelitis or infection. In addition patient's blood cultures are negative at 48 hours. These results were all discussed with the patient states he wasn't told any of this. When asked the patient if he was taking anything for or doing anything for the pain in his elbow he states because nobody told him anything he hadn't done anything he hadn't attempted to take Motrin or Tylenol he hadn't applied heat or ice. As the patient that the conclusion from orthopedics was this was likely inflammatory and he should treated with anti-inflammatory such as Motrin. I did offer to repeat the patient's labs and imaging however patient states he doesn't think anything is changed in 2 days as his pain is unchanged and he'll just go home now that he knows it's not septic. Disposition Clinical Impression: Left elbow pain Disposition: HOME SELF-CARE Condition: Stable Instructions (If sedation given, give patient instructions): Arthritis (ED) Prescriptions: Ibuprofen [Motrin] 800 mg PO Q6H PRN #30 tab PRN Reason: Pain Acetaminophen [Tylenol] 500 mg PO Q4-6H PRN #30 tab PRN Reason: Pain Diclofenac Sodium Gel [Voltaren Gel] 2 gm TOPICAL QID #1 tube Is patient prescribed a controlled substance at d/c from ED?: No Referrals: Kareem Ho MD [Primary Care Provider] - 1-2 days
== END 2019-10-26 00:10 | disposition home or self-care (01) ==
LOC: EC 22:54
DX: M25.522 Pain in left elbow (principal); I50.9 Heart failure, unspecified; J44.9 Chronic obstructive pulmonary disease, unspecified; F17.200 Nicotine dependence, unspecified, uncomplicated; Z86.718 Personal history of other venous thrombosis and embolism; Z86.711 Personal history of pulmonary embolism; Z86.14 Personal history of Methicillin resistant Staphylococcus aureus infection; Z98.890 Other specified postprocedural states; Z79.01 Long term (current) use of anticoagulants; Z79.899 Other long term (current) drug therapy; Z88.0 Allergy status to penicillin
CPT/HCPCS: 99283; 96372; J1885

== ENCOUNTER 2020-01-03 20:53 | Inpatient (IN) | payer MEDICARE ==
[2020-01-03] MEDS ORDERED: SODIUM CHLORIDE 0.9% 500 ML 500 ML IV STA (21:12)
[2020-01-03] MEDS ORDERED: IPRATROPIUM-ALBUTEROL 3 ML NEB INHALATION STA ×2 (21:12→22:24)
[2020-01-03] MEDS ORDERED: ALBUTEROL NEB (CONC) 2.5 MG/0.5 ML INHALATION STA (21:13)
[2020-01-03] MEDS ORDERED: ACETAMINOPHEN TAB 500 MG TAB PO STA (21:13)
[2020-01-03 21:41] LABS: Basophils # (A) 0.2 k/uL (0-0.2); Basophils % (A) 3 %; Eosinophils # (A) 0.1 k/uL (0-0.7); Eosinophils % (A) 1 %; HCT 50.2 % (39.0-53.0); HGB 16.3 gm/dL (13.0-17.5); Lymphocytes # (A) 1.6 k/uL (1.0-4.8); Lymphocytes % (A) 21 %; MCH 28.7 pg (25.0-35.0); MCHC 32.6 g/dL (31.0-37.0); MCV 88.1 fL (80.0-100.0); Mean Platelet Volume 7.1; Monocytes # (A) 0.8 k/uL (0-1.0); Monocytes % (A) 11 %; Neutrophils # (A) 4.5 k/uL (1.3-7.7); Neutrophils % (A) 60 %; Platelet Count 232 k/uL (150-450); RDW 13.4 % (11.5-15.5); WBC 7.5 k/uL (3.8-10.6)
[2020-01-03 21:48] LABS: ALT 17 U/L (4-49); AST 25 U/L (17-59); African American GFR (CKD) >90 (>60 ml/min/1.73 sqM); Albumin 4.5 g/dL (3.5-5.0); Alkaline Phosphatase 79 U/L (38-126); Anion Gap 6 mmol/L; Blood Urea Nitrogen 16 mg/dL (9-20); Calcium 8.9 mg/dL (8.4-10.2); Carbon Dioxide 33 mmol/L (22-30); Chloride 96 mmol/L (98-107); Glucose 96 mg/dL (74-99); Non-African American GFR(CKD) >90 (>60 ml/min/1.73 sqM); Potassium 4.3 mmol/L (3.5-5.1); Sodium 135 mmol/L (137-145); Total Bilirubin 0.3 mg/dL (0.2-1.3); Total Protein 7.2 g/dL (6.3-8.2)
[2020-01-03 21:50] LABS: Partial Thromboplastin Time 27.1 sec (22.0-30.0); Prothrombin Time 10.1 sec (9.0-12.0)
[2020-01-03] MEDS ORDERED: methylPREDNISolone SOD SUCCI 125 MG/2 ML VIAL IV STA (22:24)
[2020-01-03] MEDS ORDERED: SODIUM CHLORIDE 0.9% 500 ML 500 ML IV ONE (22:26)
[2020-01-03] MEDS ORDERED: SODIUM CHLORIDE 0.9% 1,000 ML IV ONE (22:26)
--- NOTE | 2020-01-03 22:29 | XR ---
EXAMINATION TYPE: XR chest 1V portable DATE OF EXAM: 01/03/2020 COMPARISON: 06/23/2019 HISTORY: Short of breath TECHNIQUE: FINDINGS: There is some elevation of the left diaphragm with linear density left lung base. Right jennifer g is fairly clear. There is no heart failure. There are no hilar masses. IMPRESSION: There is left diaphragm elevation and left basilar atelectasis similar to old exam. No he art failure seen. This could relate to diaphragm paralysis.
--- NOTE | 2020-01-03 22:52 | ED ---
General Adult HPI - General Chief complaint: Shortness of Breath Stated complaint: SOB Time Seen by Provider: 01/03/20 21:01 Source: patient Mode of arrival: wheelchair Limitations: no limitations - History of Present Illness Initial comments: 54 year-old male patient with past medical history significant for COPD presents to the emergency department today for evaluation of cough, fever, and shortness of breath. Patient states that he does have severe COPD and does wear 3 L of oxygen at home. States that he does use a home ventilator at night. Patient states over the last 2 days his symptoms have been worsening. Developed fever today. Denies any sputum production with his cough. Patient has been doing home nebulizer treatments without relief. Patient states that he did not receive his flu shot. He states that he has been mostly staying home, but did go to the grocery store a few days ago. Patient does not believe he was exposed to anyone diagnosed with COVID-19. Patient denies any recent rash, chest pain, abdominal pain, nausea, vomiting, diarrhea, constipation, back pain, numbness, tingling, dizziness, weakness, hematuria, dysuria, urinary urgency, urinary frequency, headache, visual changes, or any other complaints. - Related Data Home Medications Medication Instructions Recorded Confirmed Albuterol Inhaler [Ventolin Hfa 1 - 2 puff INHALATION RT-Q6H PRN 08/01/17 01/03/20 Inhaler] Furosemide [Lasix] 20 mg PO BID 08/01/17 01/03/20 Potassium Chloride ER [K-Dur 10] 10 meq PO DAILY 08/01/17 01/03/20 Rivaroxaban [Xarelto] 20 mg PO DAILY 08/01/17 01/03/20 Diltiazem Cd [Cardizem CD] 120 mg PO DAILY 04/21/19 01/03/20 Albuterol Nebulized [Ventolin 2.5 mg INHALATION RT-Q6H PRN 10/23/19 01/03/20 Nebulized] Ipratropium-Albuterol Nebulize 3 ml INHALATION RT-Q6H PRN 01/03/20 01/03/20 [Duoneb 0.5 mg-3 mg/3 ml Soln] Montelukast [Singulair] 10 mg PO HS 01/03/20 01/03/20 Previous Rx's Medication Instructions Recorded Acetaminophen [Tylenol] 500 mg PO Q4-6H PRN #30 tab 10/25/19 Allergies Allergy/AdvReac Type Severity Reaction Status Date / Time Penicillins Allergy Anaphylaxis Verified 01/03/20 22:03 Review of Systems ROS Statement: Those systems with pertinent positive or pertinent negative responses have been documented in the HPI. ROS Other: All systems not noted in ROS Statement are negative. Past Medical History Past Medical History: Heart Failure, COPD, Deep Vein Thrombosis (DVT), Neurologic Disorder, Pneumonia, Pulmonary Embolus (PE), Vascular Disorder Additional Past Medical History / Comment(s): Chronic respiratory failure with home oxygen at 4L/NC ATC and a ventilator for HS, bronchitis, pleurisy, bilateral PEs, DVT L lower leg, L reflex sympathetic dystrophy, past L elbow septic joint, chronic low back pain, varicosities History of Any Multi-Drug Resistant Organisms: MRSA Date of last positivie culture/infection: 07/27/2014 MDRO Source:: Left leg Past Surgical History: Tonsillectomy Additional Past Surgical History / Comment(s): L elbow I&D Past Anesthesia/Blood Transfusion Reactions: No Reported Reaction Past Psychological History: Depression Smoking Status: Current every day smoker Past Alcohol Use History: None Reported Past Drug Use History: None Reported - Past Family History Father Family Medical History: No Reported History Additional Family Medical History / Comment(s): Father was healthy Mother Family Medical History: Cancer Additional Family Medical History / Comment(s): Pt cannot recall type of cancer. General Exam Limitations: no limitations General appearance: alert, in no apparent distress, in distress (Mild distress), other (Physical well-developed, well-nourished adult male patient in mild respiratory distress. Vital signs upon presentation are temperature 102.6F, pulse 101, respirations 24, blood pressure 116/76, pulse ox 91% on room air.) Eye exam: Present: normal appearance, PERRL, EOMI. Absent: scleral icterus, conjunctival injection, periorbital swelling ENT exam: Present: normal exam, normal oropharynx, mucous membranes moist, TM's normal bilaterally Respiratory exam: Present: respiratory distress (Mild), decreased breath sounds. Absent: normal lung sounds bilaterally, wheezes, rales, rhonchi, stridor Cardiovascular Exam: Present: regular rate, normal rhythm, normal heart sounds. Absent: systolic murmur, diastolic murmur, rubs, gallop, clicks GI/Abdominal exam: Present: soft, normal bowel sounds. Absent: distended, tenderness, guarding, rebound, rigid Neurological exam: Present: alert, oriented X3, CN II-XII intact Psychiatric exam: Present: normal affect, normal mood Skin exam: Present: warm, dry, intact, normal color. Absent: rash Course Vital Signs 01/03/20 01/03/20 01/03/20 20:55 21:10 21:25 Temperature 102.6 F H 103.3 F H 102.5 F H Pulse Rate 101 H 140 H 130 H Respiratory 24 36 H 34 H Rate Blood Pressure 116/76 132/91 135/90 O2 Sat by Pulse 91 L 96 96 Oximetry 01/03/20 01/03/20 01/03/20 21:40 21:47 22:00 Temperature 102.5 F H Pulse Rate 122 H 124 H 122 H Respiratory 36 H 36 H Rate Blood Pressure 132/91 127/72 O2 Sat by Pulse 96 96 Oximetry 01/03/20 01/03/20 01/03/20 22:15 22:30 23:30 Temperature 101.3 F H Pulse Rate 120 H 110 H 106 H Respiratory 36 H 36 H 30 H Rate Blood Pressure 99/57 106/64 O2 Sat by Pulse 94 L 97 92 L Oximetry 01/03/20 01/04/20 01/04/20 23:53 00:00 00:38 Temperature 100.1 F H Pulse Rate 109 H 98 118 H Respiratory 34 H 34 H Rate Blood Pressure 90/50 90/50 O2 Sat by Pulse 95 91 L Oximetry 01/04/20 01/04/20 01/04/20 00:46 01:00 01:45 Temperature 98.7 F Pulse Rate 120 H 88 84 Respiratory 30 H 30 H Rate Blood Pressure 92/58 92/55 O2 Sat by Pulse 91 L 92 L Oximetry 01/04/20 01/04/20 01/04/20 02:00 02:15 02:31 Temperature Pulse Rate 84 74 80 Respiratory 30 H 32 H 30 H Rate Blood Pressure 100/53 103/61 99/62 O2 Sat by Pulse 91 L 92 L 93 L Oximetry 01/04/20 02:45 Temperature Pulse Rate 84 Respiratory 30 H Rate Blood Pressure 96/60 O2 Sat by Pulse 93 L Oximetry EKG Findings - EKG Comments: EKG Findings:: EKG obtained at 2115 shows sinus tachycardia with premature atrial complexes, ventricular rate is 134, [place] interval 122, QRS duration 86, QT 286, QTC 427. No evidence of ST elevation or depression. Medical Decision Making - Medical Decision Making 54 year-old male patient presents to the emergency department today for evaluation of shortness of breath, cough, and fever. Patient started having increasing symptoms from his baseline around 2-3 days ago. Patient does wear home O2 at 3 L and uses a home ventilator at night. Patient states that his breathing has been much worse. Physical examination did reveal diminished lung sounds. He was febrile at 102 upon arrival. Chest x-ray showed no acute cardiopulmonary process. Patient does have history of PE so CT angiography was obtained, showed possible interstitial pneumonia. Will start antibiotics covering for HCAP since he was admitted in October. BiPAP was initiated. He was given 2L normal saline and started at 130/hr. Patient will be admitted for monitoring and further evaluation by infectious disease and pulmonology. - Lab Data Result diagrams: 01/03/20 21:20 01/03/20 21:20 Lab Results 01/03/20 01/03/20 01/03/20 Range/Units 21:15 21:20 21:20 WBC 7.5 (3.8-10.6) k/uL RBC 5.70 (4.30-5.90) m/uL Hgb 16.3 (13.0-17.5) gm/dL Hct 50.2 (39.0-53.0) % MCV 88.1 (80.0-100.0) fL MCH 28.7 (25.0-35.0) pg MCHC 32.6 (31.0-37.0) g/dL RDW 13.4 (11.5-15.5) % Plt Count 232 (150-450) k/uL Neutrophils % 60 % Lymphocytes % 21 % Monocytes % 11 % Eosinophils % 1 % Basophils % 3 % Neutrophils # 4.5 (1.3-7.7) k/uL Lymphocytes # 1.6 (1.0-4.8) k/uL Monocytes # 0.8 (0-1.0) k/uL Eosinophils # 0.1 (0-0.7) k/uL Basophils # 0.2 (0-0.2) k/uL ESR (0-15) mm/hr PT 10.1 (9.0-12.0) sec INR 1.0 (<1.2) APTT 27.1 (22.0-30.0) sec D-Dimer (<0.60) mg/L FEU Sodium (137-145) mmol/L Potassium (3.5-5.1) mmol/L Chloride (98-107) mmol/L Carbon Dioxide (22-30) mmol/L Anion Gap mmol/L BUN (9-20) mg/dL Creatinine (0.66-1.25) mg/dL Est GFR (CKD-EPI)AfAm (>60 ml/min/1.73 sqM) Est GFR (CKD-EPI)NonAf (>60 ml/min/1.73 sqM) Glucose (74-99) mg/dL Plasma Lactic Acid Dl (0.7-2.0) mmol/L Calcium (8.4-10.2) mg/dL Magnesium (1.6-2.3) mg/dL Total Bilirubin (0.2-1.3) mg/dL AST (17-59) U/L ALT (4-49) U/L Alkaline Phosphatase (38-126) U/L CK-MB (CK-2) (0.0-2.4) ng/mL Troponin I (0.000-0.034) ng/mL C-Reactive Protein (<10.0) mg/L Total Protein (6.3-8.2) g/dL Albumin (3.5-5.0) g/dL Influenza Type A RNA Not Detected (Not Detectd) Influenza Type B (PCR) Not Detected (Not Detectd) 01/03/20 01/03/20 01/03/20 Range/Units 21:20 21:20 21: WBC (3.8-10.6) k/uL RBC (4.30-5.90) m/uL Hgb (13.0-17.5) gm/dL Hct (39.0-53.0) % MCV (80.0-100.0) fL MCH (25.0-35.0) pg MCHC (31.0-37.0) g/dL RDW (11.5-15.5) % Plt Count (150-450) k/uL Neutrophils % % Lymphocytes % % Monocytes % % Eosinophils % % Basophils % % Neutrophils # (1.3-7.7) k/uL Lymphocytes # (1.0-4.8) k/uL Monocytes # (0-1.0) k/uL Eosinophils # (0-0.7) k/uL Basophils # (0-0.2) k/uL ESR (0-15) mm/hr PT (9.0-12.0) sec INR (<1.2) APTT (22.0-30.0) sec D-Dimer (<0.60) mg/L FEU Sodium 135 L (137-145) mmol/L Potassium 4.3 (3.5-5.1) mmol/L Chloride 96 L (98-107) mmol/L Carbon Dioxide 33 H (22-30) mmol/L Anion Gap 6 mmol/L BUN 16 (9-20) mg/dL Creatinine 0.89 (0.66-1.25) mg/dL Est GFR (CKD-EPI)AfAm >90 (>60 ml/min/1.73 sqM) Est GFR (CKD-EPI)NonAf >90 (>60 ml/min/1.73 sqM) Glucose 96 (74-99) mg/dL Plasma Lactic Acid Dl 0.8 (0.7-2.0) mmol/L Calcium 8.9 (8.4-10.2) mg/dL Magnesium 2.0 (1.6-2.3) mg/dL Total Bilirubin 0.3 (0.2-1.3) mg/dL AST 25 (17-59) U/L ALT 17 (4-49) U/L Alkaline Phosphatase 79 (38-126) U/L CK-MB (CK-2) (0.0-2.4) ng/mL Troponin I <0.012 (0.000-0.034) ng/mL C-Reactive Protein (<10.0) mg/L Total Protein 7.2 (6.3-8.2) g/dL Albumin 4.5 (3.5-5.0) g/dL Influenza Type A RNA (Not Detectd) Influenza Type B (PCR) (Not Detectd) 01/03/20 01/03/20 01/03/20 Range/Units 21:20 21:20 21:20 WBC (3.8-10.6) k/uL RBC (4.30-5.90) m/uL Hgb (13.0-17.5) gm/dL Hct (39.0-53.0) % MCV (80.0-100.0) fL MCH (25.0-35.0) pg MCHC (31.0-37.0) g/dL RDW (11.5-15.5) % Plt Count (150-450) k/uL Neutrophils % % Lymphocytes % % Monocytes % % Eosinophils % % Basophils % % Neutrophils # (1.3-7.7) k/uL Lymphocytes # (1.0-4.8) k/uL Monocytes # (0-1.0) k/uL Eosinophils # (0-0.7) k/uL Basophils # (0-0.2) k/uL ESR 2 (0-15) mm/hr PT (9.0-12.0) sec INR (<1.2) APTT (22.0-30.0) sec D-Dimer 0.41 (<0.60) mg/L FEU Sodium (137-145) mmol/L Potassium (3.5-5.1) mmol/L Chloride (98-107) mmol/L Carbon Dioxide (22-30) mmol/L Anion Gap mmol/L BUN (9-20) mg/dL Creatinine (0.66-1.25) mg/dL Est GFR (CKD-EPI)AfAm (>60 ml/min/1.73 sqM) Est GFR (CKD-EPI)NonAf (>60 ml/min/1.73 sqM) Glucose (74-99) mg/dL Plasma Lactic Acid Dl (0.7-2.0) mmol/L Calcium (8.4-10.2) mg/dL Magnesium (1.6-2.3) mg/dL Total Bilirubin (0.2-1.3) mg/dL AST (17-59) U/L ALT (4-49) U/L Alkaline Phosphatase (38-126) U/L CK-MB (CK-2) (0.0-2.4) ng/mL Troponin I (0.000-0.034) ng/mL C-Reactive Protein 33.8 H (<10.0) mg/L Total Protein (6.3-8.2) g/dL Albumin (3.5-5.0) g/dL Influenza Type A RNA (Not Detectd) Influenza Type B (PCR) (Not Detectd) 01/03/20 Range/Units 21:20 WBC (3.8-10.6) k/uL RBC (4.30-5.90) m/uL Hgb (13.0-17.5) gm/dL Hct (39.0-53.0) % MCV (80.0-100.0) fL MCH (25.0-35.0) pg MCHC (31.0-37.0) g/dL RDW (11.5-15.5) % Plt Count (150-450) k/uL Neutrophils % % Lymphocytes % % Monocytes % % Eosinophils % % Basophils % % Neutrophils # (1.3-7.7) k/uL Lymphocytes # (1.0-4.8) k/uL Monocytes # (0-1.0) k/uL Eosinophils # (0-0.7) k/uL Basophils # (0-0.2) k/uL ESR (0-15) mm/hr PT (9.0-12.0) sec INR (<1.2) APTT (22.0-30.0) sec D-Dimer (<0.60) mg/L FEU Sodium (137-145) mmol/L Potassium (3.5-5.1) mmol/L Chloride (98-107) mmol/L Carbon Dioxide (22-30) mmol/L Anion Gap mmol/L BUN (9-20) mg/dL Creatinine (0.66-1.25) mg/dL Est GFR (CKD-EPI)AfAm (>60 ml/min/1.73 sqM) Est GFR (CKD-EPI)NonAf (>60 ml/min/1.73 sqM) Glucose (74-99) mg/dL Plasma Lactic Acid Dl (0.7-2.0) mmol/L Calcium (8.4-10.2) mg/dL Magnesium (1.6-2.3) mg/dL Total Bilirubin (0.2-1.3) mg/dL AST (17-59) U/L ALT (4-49) U/L Alkaline Phosphatase (38-126) U/L CK-MB (CK-2) 0.2 (0.0-2.4) ng/mL Troponin I (0.000-0.034) ng/mL C-Reactive Protein (<10.0) mg/L Total Protein (6.3-8.2) g/dL Albumin (3.5-5.0) g/dL Influenza Type A RNA (Not Detectd) Influenza Type B (PCR) (Not Detectd) - Radiology Data Radiology results: report reviewed, image reviewed CT chest angiography for pulmonary embolism was obtained. Report was reviewed in its entirety. Impression by Dr. Velasquez shows no evidence of pulmonary embolism. Mild predominantly interstitial reticular pulmonary infiltrates are nonspecific and could relate to pulmonary fibrosis or interstitial pneumonia. Mild atelectasis in the lingula left upper lobe. Mild mediastinal and bronchial lymph nodes probably from inflammatory disease. Chest x-ray was obtained. Report was reviewed in its entirety. Impression by Dr. Velasquez shows left diaphragm elevation left basilar atelectasis, similar to old exam. No heart failure seen. This could relate to diaphragm paralysis. Disposition Clinical Impression: Acute respiratory failure with hypoxia, COPD (chronic obstructive pulmonary disease), Pneumonia Disposition: ADMITTED IP TO THIS HOSP Condition: Serious Referrals: Kareem Ho MD [Primary Care Provider] - 1-2 days Decision to Admit Reason: Admit from EC Decision Date: 01/04/20 Decision Time: 00:00
[2020-01-03] MEDS ORDERED: ONDANSETRON 4 MG/2 ML VIAL IVP STA (23:05)
--- NOTE | 2020-01-03 23:33 | CT ---
EXAMINATION TYPE: CT chest angio for PE DATE OF EXAM: 01/03/2020 COMPARISON: HISTORY: SOB, fever, cough. Hx PE/DVT, heart failure. Coronavirus precautions. CT DLP: 518.8 mGycm Automated exposure control for dose reduction was used. CONTRAST: Performed with IV Contrast, patient injected with 100 mL of Isovue 370. There are 3-D post processed images. FINDINGS: There is some patchy mild interstitial density in both lungs without evidence of a pulmonary mass. Th ere is some focal atelectasis in the lingula left upper lobe. There is no pleural effusion. There is no mediastinal adenopathy. There are small bronchial lymph nodes that measure up to 1 cm. Th ere are no hilar masses. I see no filling defects in the pulmonary arteries. There are some peritracheal lymph nodes measuring up to 1 cm. Thoracic vertebra show normal alignment. Disc spaces are fairly normal. There is no compression fract ure. The bony thorax appears intact. There is a 1 cm high density exophytic rounded focus upper pole left kidney that is probably a complex cyst. Impression: No evidence of pulmonary embolism. Mild predominantly interstitial reticular pulmonary infiltrates are nonspecific and could relate to p ulmonary fibrosis or interstitial pneumonia. Mild atelectasis in the lingula left upper lobe. Mild me diastinal and bronchial lymph nodes probably from inflammatory disease.
[2020-01-03] MEDS ORDERED: LEVOFLOXACIN 750MG-D5W PMX 750 MG in DEXTROSE/WATER 1 150ML.BAG IVPB STA (23:50)
[2020-01-03] MEDS ORDERED: PNEUMONIA PROTOCOL UTILIZED 1 EACH MISC PO PRN (23:50)
[2020-01-04 00:36] LABS: C Reactive Protein 33.8 mg/L (<10.0)
[2020-01-04] MEDS ORDERED: GENTAMICIN 600 MG in SODIUM CHLORIDE 0.9% 100 ML IVPB ONE (01:00)
[2020-01-04] MEDS ORDERED: GENTAMICIN PER PHARMACY MISCELLANE PRN (02:24)
[2020-01-04] MEDS: SODIUM CHLORIDE 0.9% 1,000 ML IV SCH ×4 (03:16→23:03)
[2020-01-04] MEDS: ACETAMINOPHEN TAB 325 MG TAB PO PRN ×2 (06:03→15:12)
--- NOTE | 2020-01-04 06:36 | XR ---
EXAMINATION TYPE: XR chest 1V portable DATE OF EXAM: 01/04/2020 HISTORY: Resp failure. REFERENCE: Previous study dated 01/03/2020. FINDINGS: This study is mislabeled left to right. There is elevation of the left hemidiaphragm. There is atelectasis or consolidation at the left lung base. The heart is not enlarged. The right lung is clear. No definite pleural fluid is seen. IMPRESSION: LEFT BASILAR AIRSPACE DISEASE EITHER REPRESENTING ATELECTASIS OR PNEUMONIA.
[2020-01-04] MEDS ORDERED: IPRATROPIUM-ALBUTEROL 3 ML NEB INHALATION STA (09:07)
[2020-01-04] MEDS: FUROSEMIDE 20 MG TAB PO SCH ×2 (09:31→15:12)
[2020-01-04] MEDS: POTASSIUM CHLORIDE ER 10 MEQ TAB.ER.PRT PO SCH (09:31)
[2020-01-04] MEDS: RIVAROXABAN 20 MG TAB PO SCH (09:32)
[2020-01-04] MEDS: DILTIAZEM CD 120 MG CAP.ER.24H PO SCH (09:46)
[2020-01-04] MEDS: methylPREDNISolone SOD SUCCI 40 MG/ML 1 ML VIAL IV SCH ×3 (11:29→23:04)
[2020-01-04 11:32] LABS: Ferritin 86.4 ng/mL (22.0-322.0)
--- NOTE | 2020-01-04 12:38 | P.CNPUL ---
History of Present Illness Consult date: 01/04/20 Reason for consult: pneumonia Chief complaint: Shortness of breath, cough, fever, wheezing. History of present illness: This is a 54-year-old white male with known history of severe COPD, O2 dependent, chronic left hemidiaphragm paralysis, chronic hypercapnic respiratory failure, normally sees Dr. Zapata on outpatient basis. Patient is maintained on vpap, with EPAP minimum of 7 IPAP of 15. His last admission to the hospital was back in June of 2019. Patient presented to the hospital this time with mostly symptoms of COPD exacerbation and symptoms of pneumonia. Chest x-ray and CT of the chest showed a left lower lobe/lingular pneumonia. Patient was admitted, this consult was initiated. Denies any travel history. Denies any exposure to any person with covid [address] of the chest and chest x-ray showed left basilar airspace disease representing atelectasis and/or pneumonia, but considering his clinical history this is most likely pneumonic in nature. CBC showed slight leukocytosis, no evidence of lymphopenia or thrombocytopenia. Basic metabolic profile was normal. Lactic acid was 2.2 on admission. Influenza screen was negative. Review of Systems Constitutional: Fever chills, no weight loss. Pulmonary: As noted in HPI mostly cough wheezing shortness of breath Cardiac: Denies any chest pain, syncope, palpitations, diaphoresis. GI: Denies nausea vomiting abdominal pain melena or hematemesis Genitourinary: Denies any dysuria frequency urgency or hematuria. Neurologic: Denies any headache blurred vision or dizziness Psychiatric: Denies any symptoms of active depression Hematologic: Denies any clotting bleeding or bruising Endocrine: Denies any heat or cold intolerance Skin: Denies any rashes. Denies any pruritus. Musculoskeletal: Denies any limitation in range of motion denies any arthralgia or myalgia. Past Medical History Past Medical History: Heart Failure, COPD, Deep Vein Thrombosis (DVT), Lauren rologic Disorder, Pneumonia, Pulmonary Embolus (PE), Vascular Disorder Additional Past Medical History / Comment(s): Chronic respiratory failure with home oxygen at 4L/NC ATC and a ventilator for HS, bronchitis, pleurisy, bilateral PEs, DVT L lower leg, L reflex sympathetic dystrophy, past L elbow septic joint, chronic low back pain, varicosities History of Any Multi-Drug Resistant Organisms: MRSA Date of last positivie culture/infection: 07/27/2014 MDRO Source:: Left leg Past Surgical History: Tonsillectomy Additional Past Surgical History / Comment(s): L elbow I&D Past Anesthesia/Blood Transfusion Reactions: No Reported Reaction Past Psychological History: Depression Additional Psychological History / Comment(s): Pt resides with friends. He has home oxygen and a ventilator for night time. He has a nebulizer. He drives. Smoking Status: Current every day smoker Past Alcohol Use History: None Reported Additional Past Alcohol Use History / Comment(s): Pt started smoking in 1975 and is a ppd smoker. Past Drug Use History: None Reported - Past Family History Father Family Medical History: No Reported History Additional Family Medical History / Comment(s): Father was healthy Mother Family Medical History: Cancer Additional Family Medical History / Comment(s): Pt cannot recall type of cancer. Medications and Allergies Home Medications Medication Instructions Recorded Confirmed Type Albuterol Inhaler [Ventolin Hfa 1 - 2 puff INHALATION RT-Q6H PRN 08/01/17 01/03/20 History Inhaler] Furosemide [Lasix] 20 mg PO BID 08/01/17 01/03/20 History Potassium Chloride ER [K-Dur 10] 10 meq PO DAILY 08/01/17 01/03/20 History Rivaroxaban [Xarelto] 20 mg PO DAILY 08/01/17 01/03/20 History Diltiazem Cd [Cardizem CD] 120 mg PO DAILY 04/21/19 01/03/20 History Albuterol Nebulized [Ventolin 2.5 mg INHALATION RT-Q6H PRN 10/23/19 01/03/20 History Nebulized] Acetaminophen [Tylenol] 500 mg PO Q4-6H PRN #30 tab 10/25/19 01/03/20 Rx Ipratropium-Albuterol Nebulize 3 ml INHALATION RT-Q6H PRN 01/03/20 01/03/20 History [Duoneb 0.5 mg-3 mg/3 ml Soln] Montelukast [Singulair] 10 mg PO HS 01/03/20 01/03/20 History Allergies Allergy/AdvReac Type Severity Reaction Status Date / Time Penicillins Allergy Anaphylaxis Verified 01/03/20 22:03 Physical Exam Vitals: Vital Signs Temp Pulse Pulse Resp BP BP Pulse Ox 01/04/20 11:41 98.4 F 78 20 109/69 94 L 01/04/20 09:57 92 01/04/20 09:46 88 01/04/20 08:00 97.8 F 84 18 98/55 94 L 01/04/20 04:00 98.3 F 88 22 106/59 95 01/04/20 03:11 97.5 F L 76 28 H 102/58 93 L 01/04/20 02:45 84 30 H 96/60 93 L 01/04/20 02:31 80 30 H 99/62 93 L 01/04/20 02:15 74 32 H 103/61 92 L 01/04/20 02:00 84 30 H 100/53 91 L 01/04/20 01:45 84 30 H 92/55 92 L 01/04/20 01:00 98.7 F 88 30 H 92/58 91 L 01/04/20 00:46 120 H 01/04/20 00:38 118 H 01/04/20 00:00 100.1 F H 98 34 H 90/50 91 L 01/03/20 23:53 109 H 34 H 90/50 95 01/03/20 23:30 106 H 30 H 92 L 01/03/20 22:30 101.3 F H 110 H 36 H 106/64 97 01/03/20 22:15 120 H 36 H 99/57 94 L 01/03/20 22:00 122 H 36 H 127/72 96 01/03/20 21:47 124 H 01/03/20 21:40 102.5 F H 122 H 36 H 132/91 96 01/03/20 21:25 102.5 F H 130 H 34 H 135/90 96 01/03/20 21:10 103.3 F H 140 H 36 H 132/91 96 01/03/20 20:55 102.6 F H 101 H 24 116/76 91 L Intake and Output 01/03/20 01/04/20 01/04/20 22:59 06:59 14:59 Intake Total 240 240 Balance 240 240 Intake: Oral 240 240 Other: # Voids 1 Weight 102.058 kg 102.058 kg Physical Exam: Revealed a 54-year-old white male in no distress. Maintained on 4 L nasal cannula. O2 saturation is 94% Head: Atraumatic, normocephalic. HEENT:[Neck is supple.] [No neck masses.] [No thyromegaly.] [No JVD.] Chest: [Diminished breath sound bilaterally rhonchi and wheezes noted bilaterally. Symmetrical chest expansion. Cardiac Exam: [Normal S1 and S2, no S3 gallop, no murmur.] Abdomen: [Soft, nontender, no megaly, no rebound, no guarding, normal bowel sounds.] Extremities: [No clubbing, no edema, no cyanosis.] Neurological Exam: [No focal neurologic deficit. Alert and oriented 3. Psychiatric: Normal mood affect and normal mental status examination. Skin: No rashes. Lymphatics: No lymphadenopathy.] Results - Laboratory Findings CBC and BMP: 01/03/20 21:01/03/20 21:20 PT/INR, D-dimer PT 10.1 sec (9.0-12.0) 01/03/20 21:20 INR 1.0 (<1.2) 01/03/20 21:20 D-Dimer 0.41 mg/L FEU (<0.60) 01/03/20 21:20 Abnormal lab findings: Abnormal Labs 01/03/20 01/03/20 21:20 21:20 Sodium 135 L Chloride 96 L Carbon Dioxide 33 H C-Reactive Protein 33.8 H - Diagnostic Findings Chest x-ray: image reviewed CT scan - chest: image reviewed (As noted in HPI.) Assessment and Plan Assessment: Impression: Acute left lower lobe pneumonia is strongly suspected, community-acquired in nature. Acute exacerbation of COPD known to have history of severe COPD FEV1 of 27%. Acute on chronic hypoxic and hypercapnic respiratory failure Chronic left hemidiaphragm paralysis Remote history of pulmonary embolism Tobacco dependence syndrome Chronic left lower lobe atelectasis however considering his presentation, concern about pneumonia involving the left lower lobe and lingula is in the differential. Recommendation: Agree with the present treatment plan including Bronchodilators. Antibiotics. Steroids. Resume home meds. Oxygen. Continue ventilatory support as given at home for his chronic hypercapnic respiratory failure. We'll continue to follow. Patient was tested for covid 19, hence continue droplet isolation and precautions Time with Patient: Greater than 30
[2020-01-04] MEDS: IPRATROPIUM-ALBUTEROL 3 ML NEB INHALATION SCH ×4 (13:19→23:49)
--- NOTE | 2020-01-04 14:46 | P.HPIM ---
History of Present Illness This is a pleasant 54 years old male with past medical history of COPD, chronic heart failure, deep venous thrombosis and pulmonary embolism on Xarelto, chronic hypoxic respiratory failure on home oxygen at 3-4 L via nasal cannula, left reflex sympathetic dystrophy, chronic low back pain, depression. Presents because of worsening dyspnea with chronic cough with recent worsening associated with occasional phlegm. He denies significant chest pain. His symptoms most likely related to COPD and pneumonia Vitas looks stable, WBC 12.8 K came down to 7.5K, d-dimer is negative for 0.41, INR 1.0, sodium 135, potassium 4.3, creatinine 0.89, liver enzymes not elevated, prepped gallstone is ordered and is pending. Chest x-ray: Left basilar airspace disease suspicious for atelectasis or pneumonia. EKG shows sinus tachycardia at 174 with QTC of [address]-T changes. Chest CTA: No pulmonary embolism, with patchy mild interstitial density in both lungs without evidence of pulmonary mass Review of Systems CONSTITUTIONAL: No fever, no malaise, no fatigue. HEENT: No recent visual problems or hearing problems. Denied any sore throat. CARDIOVASCULAR: No orthopnea, PND, no palpitations, no syncope. PULMONARY: no hemoptysis. GASTROINTESTINAL: No diarrhea, no nausea, no vomiting, no abdominal pain. Normoactive bowel sounds. NEUROLOGICAL: No headaches, no weakness, no numbness. HEMATOLOGICAL: Denies any bleeding or petechiae. GENITOURINARY: Denies any burning micturition, frequency, or urgency. MUSCULOSKELETAL/RHEUMATOLOGICAL: Denies any joint pain, swelling, or any muscle pain. ENDOCRINE: Denies any polyuria or polydipsia. Past Medical History Past Medical History: Heart Failure, COPD, Deep Vein Thrombosis (DVT), Ne urologic Disorder, Pneumonia, Pulmonary Embolus (PE), Vascular Disorder Additional Past Medical History / Comment(s): Chronic respiratory failure with home oxygen at 4L/NC ATC and a ventilator for HS, bronchitis, pleurisy, bilateral PEs, DVT L lower leg, L reflex sympathetic dystrophy, past L elbow septic joint, chronic low back pain, varicosities History of Any Multi-Drug Resistant Organisms: MRSA Date of last positivie culture/infection: 07/27/2014 MDRO Source:: Left leg Past Surgical History: Tonsillectomy Additional Past Surgical History / Comment(s): L elbow I&D Past Anesthesia/Blood Transfusion Reactions: No Reported Reaction Past Psychological History: Depression Additional Psychological History / Comment(s): Pt resides with friends. He has home oxygen and a ventilator for night time. He has a nebulizer. He drives. Smoking Status: Current every day smoker Past Alcohol Use History: None Reported Additional Past Alcohol Use History / Comment(s): Pt started smoking in 1975 and is a ppd smoker. Past Drug Use History: None Reported - Past Family History Father Family Medical History: No Reported History Additional Family Medical History / Comment(s): Father was healthy Mother Family Medical History: Cancer Additional Family Medical History / Comment(s): Pt cannot recall type of cancer. Medications and Allergies Home Medications Medication Instructions Recorded Confirmed Type Albuterol Inhaler [Ventolin Hfa 1 - 2 puff INHALATION RT-Q6H PRN 08/01/17 01/03/20 History Inhaler] Furosemide [Lasix] 20 mg PO BID 08/01/17 01/03/20 History Potassium Chloride ER [K-Dur 10] 10 meq PO DAILY 08/01/17 01/03/20 History Rivaroxaban [Xarelto] 20 mg PO DAILY 08/01/17 01/03/20 History Diltiazem Cd [Cardizem CD] 120 mg PO DAILY 04/21/19 01/03/20 History Albuterol Nebulized [Ventolin 2.5 mg INHALATION RT-Q6H PRN 10/23/19 01/03/20 History Nebulized] Acetaminophen [Tylenol] 500 mg PO Q4-6H PRN #30 tab 10/25/19 01/03/20 Rx Ipratropium-Albuterol Nebulize 3 ml INHALATION RT-Q6H PRN 01/03/20 01/03/20 History [Duoneb 0.5 mg-3 mg/3 ml Soln] Montelukast [Singulair] 10 mg PO HS 01/03/20 01/03/20 History Allergies Allergy/AdvReac Type Severity Reaction Status Date / Time Penicillins Allergy Anaphylaxis Verified 01/03/20 22:03 Physical Exam Vitals: Vital Signs Temp Pulse Pulse Resp BP BP Pulse Ox 01/04/20 11:41 98.4 F 78 20 109/69 94 L 01/04/20 09:57 92 01/04/20 09:46 88 03/21/20 08:00 97.8 F 84 18 98/55 94 L 01/04/20 04:00 98.3 F 88 22 106/59 95 01/04/20 03:11 97.5 F L 76 28 H 102/58 93 L 01/04/20 02:45 84 30 H 96/60 93 L 01/04/20 02:31 80 30 H 99/62 93 L 01/04/20 02:15 74 32 H 103/61 92 L 01/04/20 02:00 84 30 H 100/53 91 L 01/04/20 01:45 84 30 H 92/55 92 L 01/04/20 01:00 98.7 F 88 30 H 92/58 91 L 01/04/20 00:46 120 H 01/04/20 00:38 118 H 01/04/20 00:00 100.1 F H 98 34 H 90/50 91 L 01/03/20 23:53 109 H 34 H 90/50 95 01/03/20 23:30 106 H 30 H 92 L 01/03/20 22:30 101.3 F H 110 H 36 H 106/64 97 01/03/20 22:15 120 H 36 H 99/57 94 L 01/03/20 22:00 122 H 36 H 127/72 96 01/03/20 21:47 124 H 01/03/20 21:40 102.5 F H 122 H 36 H 132/91 96 01/03/20 21:25 102.5 F H 130 H 34 H 135/90 96 01/03/20 21:10 103.3 F H 140 H 36 H 132/91 96 01/03/20 20:55 102.6 F H 101 H 24 116/76 91 L Intake and Output 01/03/20 01/04/20 01/04/20 22:59 06:59 14:59 Intake Total 240 240 Balance 240 240 Intake: Oral 240 240 Other: # Voids 1 Weight 102.058 kg 102.058 kg GENERAL: The patient is alert and oriented x3, not in any acute distress. Well developed, well nourished. HEENT: Pupils are round and equally reacting to light. EOMI. No scleral icterus. No conjunctival pallor. Normocephalic, atraumatic. No pharyngeal erythema. No thyromegaly. CARDIOVASCULAR: S1 and S2 present. No murmurs, rubs, or gallops. -PULMONARY: Chest is clear to auscultation, scattered wheezing ABDOMEN: Soft, nontender, nondistended, normoactive bowel sounds. No palpable organomegaly. MUSCULOSKELETAL: No joint swelling or deformity. EXTREMITIES: No cyanosis, clubbing, or pedal edema. NEUROLOGICAL: Gross neurological examination did not reveal any focal deficits. SKIN: No rashes. No petechiae Results CBC & Chem 7: 01/03/20 21:20 01/03/20 21:20 Labs: Abnormal Lab Results - Last 24 Hours (Table) 01/03/20 01/03/20 Range/Units 21:20 21:20 Sodium 135 L (137-145) mmol/L Chloride 96 L (98-107) mmol/L Carbon Dioxide 33 H (22-30) mmol/L C-Reactive Protein 33.8 H (<10.0) mg/L Thrombosis Risk Factor Assmnt - Choose All That Apply Each Factor Represents 1 point: Abnormal pulmonary function (COPD), Age 41-60 years Thrombosis Risk Factor Assessment Total Risk Factor Score: 2 Thrombosis Risk Factor Assessment Level: Low Risk Assessment and Plan Assessment: Lower lobe pneumonia, with possible acute tracheobronchitis Acute COPD exacerbation Acute on Chronic hypoxic respiratory failure History of DVT and pulmonary thromboembolism on Xarelto History of chronic low back pain History of depression, not an active fissure History of left reflex sympathetic dystrophy Plan: This is a pleasant 54 years old male who presents with pneumonia and COPD. Continue with oxygen, steroids, and antibiotic and bronchodilator. Pulmonary and infectious disease consult Labs and medication were reviewed.. Continue same treatment. Continue with symptomatic treatment. Resume home medication. Monitor lytes and vitals. DVT and GI prophylaxis. Further recommendations of the clinical course of the patient DVT prophylaxis: Xarelto GI Prophylaxis: Ppi Prognosis is guarded
[2020-01-04] MEDS ORDERED: CEFEPIME 2 GM in SODIUM CHLORIDE 0.9% 100 ML IVPB SCH ×2 (17:25→21:00)
[2020-01-04] MEDS: CEFEPIME 2 GM in SODIUM CHLORIDE 0.9% 100 ML IVPB SCH (18:33)
[2020-01-04] MEDS: MONTELUKAST 10 MG TAB PO SCH (20:10)
[2020-01-04] MEDS: SYMBICORT 160-4.5 MCG INHALER INHALATION SCH (20:30)
[2020-01-04] MEDS: guaiFENesin-DM 100-10MG/5ML 10 ML CUP PO PRN (23:04)
--- NOTE | 2020-01-04 23:33 | P.CONS ---
History of Present Illness - Reason for Consult Consult date: 01/04/20 pneumonia Requesting physician: Jose Enrique E Sheet - Chief Complaint cough and fever x few days - History of Present Illness Patient is a 54-year male presenting to the ER last night with chief complaints of increased shortness of breath cough and fever patient symptom has been going on for about a week however for the last 2 days patient seemed to have worsening symptoms and started running a fever patient cough is been moderate intensity has been mostly dry in nature. Necessarily pleuritic chest pain patient has significant URI symptoms with generalized body aches no nausea no vomiting no choking on food no abdominal pain or any diarrhea patient denies any sick contact with the symptom the patient was evaluated by the ER physician on arrival to the ER patient did have a fever of 102 F patient was tachycardic with heart rate 140s patient white count was normal creatinine was normal CRP was elevated at 33.8 NORMAL the patient did have a chest x-ray initially which was later from elevation and left basilar atelectasis seem to old exam patient did have a CT angiogram was negative for PE however shows a mild predominantly interstitial reticular pulmonary infiltrate nonspecific with concern for possible COVID-19 infection patient has been placed in respiratory isolation because of his penicillin allergy he was started on gentamicin and Levaquin for antibiotic coverage admitted to the hospital infectious disease was consulted for further recommendation about antibiotic therapy. Review of Systems Positive point has been mentioned in HPI rest of the systems are negative Past Medical History Past Medical History: Heart Failure, COPD, Deep Vein Thrombosis (DVT), Neurologic Disorder, Pneumonia, Pulmonary Embolus (PE), Vascular Disorder Additional Past Medical History / Comment(s): Chronic respiratory failure with home oxygen at 4L/NC ATC and a ventilator for HS, bronchitis, pleurisy, bilateral PEs, DVT L lower leg, L reflex sympathetic dystrophy, past L elbow septic joint, chronic low back pain, varicosities History of Any Multi-Drug Resistant Organisms: MRSA Year Discovered:: 07/27/2014 MDRO Source:: Left leg Past Surgical History: Tonsillectomy Additional Past Surgical History / Comment(s): L elbow I&D Past Anesthesia/Blood Transfusion Reactions: No Reported Reaction Past Psychological History: Depression Additional Psychological History / Comment(s): Pt resides with friends. He has home oxygen and a ventilator for night time. He has a nebulizer. He drives. Smoking Status: Current every day smoker Past Alcohol Use History: None Reported Additional Past Alcohol Use History / Comment(s): Pt started smoking in 1975 and is a ppd smoker. Past Drug Use History: None Reported - Past Family History Father Family Medical History: No Reported History Additional Family Medical History / Comment(s): Father was healthy Mother Family Medical History: Cancer Additional Family Medical History / Comment(s): Pt cannot recall type of cancer. Medications and Allergies Home Medications Medication Instructions Recorded Confirmed Type Albuterol Inhaler [Ventolin Hfa 1 - 2 puff INHALATION RT-Q6H PRN 08/01/17 01/03/20 History Inhaler] Furosemide [Lasix] 20 mg PO BID 08/01/17 01/03/20 History Potassium Chloride ER [K-Dur 10] 10 meq PO DAILY 08/01/17 01/03/20 History Rivaroxaban [Xarelto] 20 mg PO DAILY 08/01/17 01/03/20 History Diltiazem Cd [Cardizem CD] 120 mg PO DAILY 04/21/19 01/03/20 History Albuterol Nebulized [Ventolin 2.5 mg INHALATION RT-Q6H PRN 10/23/19 01/03/20 History Nebulized] Acetaminophen [Tylenol] 500 mg PO Q4-6H PRN #30 tab 10/25/19 01/03/20 Rx Ipratropium-Albuterol Nebulize 3 ml INHALATION RT-Q6H PRN 01/03/20 01/03/20 History [Duoneb 0.5 mg-3 mg/3 ml Soln] Montelukast [Singulair] 10 mg PO HS 01/03/20 01/03/20 History Allergies Allergy/AdvReac Type Severity Reaction Status Date / Time Penicillins Allergy Anaphylaxis Verified 01/03/20 22:03 Physical Exam Vitals: Vital Signs Temp Pulse Pulse Resp BP BP Pulse Ox 01/04/20 17:14 70 01/04/20 17:00 72 01/04/20 15:17 98.2 F 67 18 102/58 95 01/04/20 13:30 86 01/04/20 13:21 82 01/04/20 11:41 98.4 F 78 20 109/69 94 L 01/04/20 09:57 92 01/04/20 09:46 88 01/04/20 08:00 97.8 F 84 18 98/55 94 L 01/04/20 04:00 98.3 F 88 22 106/59 95 01/04/20 03:11 97.5 F L 76 28 H 102/58 93 L 01/04/20 02:45 84 30 H 96/60 93 L 01/04/20 02:31 80 30 H 99/62 93 L 01/04/20 02:15 74 32 H 103/61 92 L 01/04/20 02:00 84 30 H 100/53 91 L 01/04/20 01:45 84 30 H 92/55 92 L 01/04/20 01:00 98.7 F 88 30 H 92/58 91 L 01/04/20 00:46 120 H 01/04/20 00:38 118 H 01/04/20 00:00 100.1 F H 98 34 H 90/50 91 L 01/03/20 23:53 109 H 34 H 90/50 95 01/03/20 23:30 106 H 30 H 92 L 01/03/20 22:30 101.3 F H 110 H 36 H 106/64 97 01/03/20 22:15 120 H 36 H 99/57 94 L 01/03/20 22:00 122 H 36 H 127/72 96 01/03/20 21:47 124 H 01/03/20 21:40 102.5 F H 122 H 36 H 132/91 96 01/03/20 21:25 102.5 F H 130 H 34 H 135/90 96 01/03/20 21:10 103.3 F H 140 H 36 H 132/91 96 01/03/20 20:55 102.6 F H 101 H 24 116/76 91 L Intake and Output 01/04/20 01/04/20 01/04/20 06:59 14:59 22:59 Intake Total 240 240 Balance 240 240 Intake: Oral 240 240 Other: # Voids 1 Weight 102.058 kg GENERAL DESCRIPTION: Middle-aged male lying in bed, no distress. No tachypnea or accessory muscle of respiration use. HEENT: Shows Pallor , no scleral icterus. Oral mucous membrane is dry. NECK: Trachea central, no thyromegaly. LUNGS: Unlabored breathing. Decrease intensity of breath sounds. No wheeze or crackle. HEART: S1, S2, regular rate and rhythm. ABDOMEN: Soft, no tenderness , guarding or rigidity EXTREMITIES: No edema of feet. SKIN: No rash, no masses palpable. NEUROLOGICAL: The patient is awake, alert, oriented x3, mood and affect normal. Results CBC & Chem 7: 01/03/20 21:20 01/03/20 21:20 Labs: Abnormal Lab Results - Last 24 Hours (Table) 01/03/20 01/03/20 Range/Units 21:20 21:20 Sodium 135 L (137-145) mmol/L Chloride 96 L (98-107) mmol/L Carbon Dioxide 33 H (22-30) mmol/L C-Reactive Protein 33.8 H (<10.0) mg/L Assessment and Plan Assessment: 1-patient presented to the hospital with sepsis in this patient who did have a fever tachycardia source likely pneumonia will consult for possible community-acquired in this patient who do have underlying COPD, a viral pneumonia such as COVID-19 return excluded. 2-patient with penicillin allergy that would limit the number of antibiotics safe to use (1) Sepsis Current Visit: Yes Status: Acute Code(s): A41.9 - SEPSIS, UNSPECIFIED ORGANISM SNOMED Code(s): 39886575 (2) Pneumonia Current Visit: Yes Status: Acute Code(s): J18.9 - PNEUMONIA, UNSPECIFIED ORGANISM SNOMED Code(s): 474373806 Plan: 1-respiratory isolation ~COVID-19 testing is complete 2-discontinue gentamicin 3-We will add cefepime 2 g every 12 and continue with the Levaquin We will follow on clinical condition and cultures to further adjust medication if needed Thank you for this consultation we will follow the patient along with you Time with Patient: Greater than 30
[2020-01-05] MEDS ORDERED: LEVOFLOXACIN 750MG-D5W PMX 750 MG in DEXTROSE/WATER 1 150ML.BAG IVPB SCH
[2020-01-05] MEDS ORDERED: GENTAMICIN 600 MG in SODIUM CHLORIDE 0.9% 100 ML IVPB SCH (02:00)
[2020-01-05] MEDS: IPRATROPIUM-ALBUTEROL 3 ML NEB INHALATION SCH ×6 (03:17→23:52)
[2020-01-05] MEDS: CEFEPIME 2 GM in SODIUM CHLORIDE 0.9% 100 ML IVPB SCH ×2 (05:28→17:56)
[2020-01-05] MEDS: methylPREDNISolone SOD SUCCI 40 MG/ML 1 ML VIAL IV SCH ×3 (05:28→17:55)
[2020-01-05] MEDS: PANTOPRAZOLE 40 MG TABLET PO SCH (05:29)
[2020-01-05 06:05] LABS: Basophils % (A) 0 %; Eosinophils % (A) 0 %; HCT 45.6 % (39.0-53.0); HGB 14.5 gm/dL (13.0-17.5); Lymphocytes # (A) 1.1 k/uL (1.0-4.8); Lymphocytes % (A) 16 %; MCHC 31.8 g/dL (31.0-37.0); MCV 91.2 fL (80.0-100.0); Mean Platelet Volume 7.4; Monocytes # (A) 0.4 k/uL (0-1.0); Monocytes % (A) 6 %; Neutrophils % (A) 76 %; Platelet Count 200 k/uL (150-450); RBC 5.01 m/uL (4.30-5.90); RDW 13.4 % (11.5-15.5); WBC 6.6 k/uL (3.8-10.6)
[2020-01-05 06:17] LABS: African American GFR (CKD) >90 (>60 ml/min/1.73 sqM); Anion Gap 6 mmol/L; Blood Urea Nitrogen 17 mg/dL (9-20); Calcium 8.7 mg/dL (8.4-10.2); Carbon Dioxide 34 mmol/L (22-30); Chloride 97 mmol/L (98-107); Glucose 190 mg/dL (74-99); Non-African American GFR(CKD) >90 (>60 ml/min/1.73 sqM); Potassium 4.6 mmol/L (3.5-5.1); Sodium 137 mmol/L (137-145)
[2020-01-05] MEDS: SYMBICORT 160-4.5 MCG INHALER INHALATION SCH ×2 (08:02→19:04)
[2020-01-05] MEDS: POTASSIUM CHLORIDE ER 10 MEQ TAB.ER.PRT PO SCH (09:46)
[2020-01-05] MEDS: RIVAROXABAN 20 MG TAB PO SCH (09:46)
[2020-01-05] MEDS: DILTIAZEM CD 120 MG CAP.ER.24H PO SCH (09:46)
[2020-01-05] MEDS: SODIUM CHLORIDE 0.9% 1,000 ML IV SCH ×2 (09:47→20:41)
[2020-01-05] MEDS: FUROSEMIDE 20 MG TAB PO SCH ×2 (09:47→15:26)
--- NOTE | 2020-01-05 11:24 | P.PN ---
Subjective This is a pleasant 54 years old male with past medical history of COPD, chronic heart failure, deep venous thrombosis and pulmonary embolism on Xarelto, chronic hypoxic respiratory failure on home oxygen at 3-4 L via nasal cannula, left reflex sympathetic dystrophy, chronic low back pain, depression. Presents because of worsening dyspnea with chronic cough with recent worsening associated with occasional phlegm. He denies significant chest pain. His symptoms most likely related to COPD and pneumonia Vitas looks stable, WBC 12.8 K came down to 7.5K, d-dimer is negative for 0.41, INR 1.0, sodium 135, potassium 4.3, creatinine 0.89, liver enzymes not elevated, prepped gallstone is ordered and is pending. Chest x-ray: Left basilar airspace disease suspicious for atelectasis or pneumonia. EKG shows sinus tachycardia at 174 with QTC of [address]-T changes. Chest CTA: No pulmonary embolism, with patchy mild interstitial density in both lungs without evidence of pulmonary mass 01/05/2020 Patient was admitted for pneumonia and COPD, he shown some improvement compared to yesterday as he is less dyspneic his Vitas looks stable with a blood pressure 107/58, heart rate 69 his breathing at a rate of 18-20 breath per minute, he is been afebrile and temperature today is 98.3, saturating 92% and 2 L oxygen via nasal cannula. CBC looked unremarkable, no change in the percent of neutrophils and lymphocytes outside the reference range. Sodium is improved to normal at 137, carbon dioxide 34 which is elevated and creatinine normal 0.7. Patient has been followed by pulmonary infectious disease team, he is on cefepime, levofloxacin, soluMedrol 40 mg, and Xarelto. We will lower his normal saline to 100 mL per hour Objective - Vital Signs Vital signs: Vital Signs Temp 98.3 F 01/05/20 08:00 Pulse 68 01/05/20 08:10 Resp 20 01/05/20 08:00 BP 107/58 01/05/20 08:00 Pulse Ox 92 L 01/05/20 08:00 Intake & Output 01/04/20 01/05/20 01/05/20 18:59 06:59 18:59 Intake Total 1422 1060 240 Balance 1422 1060 240 Weight 102 kg Intake: Oral 1422 1060 240 Other: # Voids 2 2 - Exam GENERAL: The patient is alert and oriented x3, not in any acute distress. Well developed, well nourished. HEENT: Pupils are round and equally reacting to light. EOMI. No scleral icterus. No conjunctival pallor. Normocephalic, atraumatic. No pharyngeal erythema. No thyromegaly. CARDIOVASCULAR: S1 and S2 present. No murmurs, rubs, or gallops. -PULMONARY: Chest is clear to auscultation, scattered wheezing ABDOMEN: Soft, nontender, nondistended, normoactive bowel sounds. No palpable or ganomegaly. MUSCULOSKELETAL: No joint swelling or deformity. EXTREMITIES: No cyanosis, clubbing, or pedal edema. NEUROLOGICAL: Gross neurological examination did not reveal any focal deficits. SKIN: No rashes. No petechiae - Labs CBC & Chem 7: 01/05/20 05:47 01/05/20 05:47 Labs: Abnormal Lab Results - Last 24 Hours (Table) 01/05/20 Range/Units 05:47 Chloride 97 L (98-107) mmol/L Carbon Dioxide 34 H (22-30) mmol/L Glucose 190 H (74-99) mg/dL Microbiology - Last 24 Hours (Table) 01/03/20 21:20 Blood Culture - Preliminary Blood No Growth after 24 hours Assessment and Plan Assessment: Lower lobe pneumonia, with possible acute tracheobronchitis Acute COPD exacerbation Acute on Chronic hypoxic respiratory failure History of DVT and pulmonary thromboembolism on Xarelto History of chronic low back pain History of depression, not an active fissure History of left reflex sympathetic dystrophy Plan: This is a pleasant 54 years old male who presents with pneumonia and COPD. Continue with oxygen, steroids, and antibiotic and bronchodilator. Pulmonary and infectious disease consult Labs and medication were reviewed.. Continue same treatment. Continue with symptomatic treatment. Resume home medication. Monitor lytes and vitals. DVT and GI prophylaxis. Further recommendations of the clinical course of the patient DVT prophylaxis: Xarelto GI Prophylaxis: Ppi Prognosis is guarded
--- NOTE | 2020-01-05 14:33 | P.PN ---
Subjective Progress Note Date: 01/05/20 Principal diagnosis: Acute left lower lobe pneumonia suspect community-acquired This is a 54-year-old white male with known history of severe COPD, O2 dependent, chronic left hemidiaphragm paralysis, chronic hypercapnic respiratory failure, normally sees Dr. Zapata on outpatient basis. Patient is maintained on vpap, with EPAP minimum of 7 IPAP of 15. His last admission to the hospital was back in June of 2019. Patient presented to the hospital this time with mostly symptoms of COPD exacerbation and symptoms of pneumonia. Chest x-ray and CT of the chest showed a left lower lobe/lingular pneumonia. Patient was admitted, this consult was initiated. Denies any travel history. Denies any exposure to any person with covid [address] of the chest and chest x-ray showed left basilar airspace disease representing atelectasis and/or pneumonia, but considering his clinical history this is most likely pneumonic in nature. CBC showed slight leukocytosis, no evidence of lymphopenia or thrombocytopenia. Basic metabolic profile was normal. Lactic acid was 2.2 on admission. Influenza screen was negative. The patient is seen today 01/05/2020 in follow-up on the selective care unit. He is currently sitting up at the bedside having lunch. Awake and alert in no acute distress. Breathing bit easier today compared to yesterday. Continues with a loose cough. Maintaining O2 saturations in the 90s on 3 L/m per nasal cannula. He is afebrile. Hemodynamically stable. Blood culture reveals no growth to date. White count 6.6. Hemoglobin 14.5. Lymphocytes 1.1. Sodium 137. Creatinine 0.73. Objective - Vital Signs Vital signs: Vital Signs Temp 98.2 F 01/05/20 12:00 Pulse 70 01/05/20 12:00 Resp 18 01/05/20 12:00 BP 116/58 01/05/20 12:00 Pulse Ox 96 01/05/20 12:00 Intake & Output 01/04/20 01/05/20 01/05/20 18:59 06:59 18:59 Intake Total 1422 1060 490 Balance 1422 1060 490 Weight 102 kg Intake: Intake, IV Titration 100 Amount Cefepime 2 gm In Sodium 100 Chloride 0.9% 100 ml @ 200 mls/hr IVPB Q12H [facility] Rx#:[id number] Oral 1422 1060 390 Other: # Voids 2 2 - Exam GENERAL EXAM: Alert, 54-year-old gentleman, on 3 L nasal cannula,comfortable in no apparent distress. HEAD: Normocephalic. EYES: Normal reaction of pupils, equal size. NOSE: Clear with pink turbinates. THROAT: No erythema or exudates. NECK: No masses, no JVD. CHEST: No chest wall deformity. LUNGS: Equal air entry with crackles in the left lung base. CVS: S1 and S2 normal with no audible murmur, regular rhythm. ABDOMEN: No hepatosplenomegaly, normal bowel sounds, no guarding or rigidity. SPINE: No scoliosis or deformity SKIN: No rashes CENTRAL NERVOUS SYSTEM: No focal deficits, tone is normal in all 4 extremities. EXTREMITIES: There is no peripheral edema. No clubbing, no cyanosis. Peripheral pulses are intact. - Labs CBC & Chem 7: 01/05/20 05:47 01/05/20 05:47 Labs: Abnormal Lab Results - Last 24 Hours (Table) 01/05/20 Range/Units 05:47 Chloride 97 L (98-107) mmol/L Carbon Dioxide 34 H (22-30) mmol/L Glucose 190 H (74-99) mg/dL Microbiology - Last 24 Hours (Table) 01/03/20 21:20 Blood Culture - Preliminary Blood No Growth after 24 hours Assessment and Plan Assessment: Acute left lower lobe pneumonia is strongly suspected, community-acquired in nature. Acute exacerbation of COPD known to have history of severe COPD FEV1 of 27%. Acute on chronic hypoxic and hypercapnic respiratory failure Chronic left hemidiaphragm paralysis Remote history of pulmonary embolism Tobacco dependence syndrome Chronic left lower lobe atelectasis however considering his presentation, concern about pneumonia involving the left lower lobe and lingula is in the differential. Plan: Seen and evaluated by Dr. Mcclendon. Continue bronchodilators, antibiotics, steroids Continue ventilatory support as given at home for his chronic hypercapnic respiratory failure. Patient was tested for covid 19, continue droplet isolation and precautions We will continue to follow I, the cosigning physician, performed a history & physical examination of the patient. Lungs soundswith crackles in the left lung base, diminished. Maintaining good O2 saturations in the 90s on 3 L/m per nasal cannula. I discussed the assessment and plan of care with my nurse practitioner, Edna Nguyen. I attest to the above note as dictated by her.
--- NOTE | 2020-01-05 19:56 | PN ---
PROGRESS NOTE DATE OF SERVICE: 01/05/2020 REASON FOR FOLLOWUP: Pneumonia. INTERVAL HISTORY: The patient is currently afebrile. He is breathing comfortably. The patient denies having any chest pain. He did have cough. No sputum. No nausea, vomiting. No abdominal pain. No diarrhea. PHYSICAL EXAMINATION: Blood pressure 136/73 with a pulse of 73, temperature 98.6. He is 93% on 3 L nasal cannula. General description is a middle aged male sitting up in the bed in no distress. Respiratory system: Unlabored breathing. He has decreased breath sounds at the bases. No wheeze. Heart S1, S2. Regular rate and rhythm. Abdomen soft, no tenderness. LABS: Hemoglobin is 14.4, white count 6.7, BUN of 17, creatinine 0.73. Blood culture has been negative so far. No sputum has been collected. DIAGNOSTIC IMPRESSION AND PLAN: Patient admitted to hospital with a fever in this patient who did have a CT angiogram suggestive of mild nodule with concern for possible bacterial or viral pneumonia. Covid-19 results pending. Patient currently covered with Cefepime to continue and monitor clinical course closely. MMODL / IJN: [id number] / GARCIA
[2020-01-05] MEDS: MONTELUKAST 10 MG TAB PO SCH (20:29)
[2020-01-05] MEDS: guaiFENesin-DM 100-10MG/5ML 10 ML CUP PO PRN (20:40)
[2020-01-05] MEDS ORDERED: LEVOFLOXACIN 750 MG TAB PO SCH (21:00)
[2020-01-06] MEDS: methylPREDNISolone SOD SUCCI 40 MG/ML 1 ML VIAL IV SCH ×3 (00:55→12:02)
[2020-01-06] MEDS: SODIUM CHLORIDE 0.9% 1,000 ML IV SCH (02:49)
[2020-01-06 04:04] VITALS: RESP 18
[2020-01-06] MEDS: IPRATROPIUM-ALBUTEROL 3 ML NEB INHALATION SCH ×5 (04:07→17:02)
[2020-01-06 06:12] LABS: African American GFR (CKD) >90 (>60 ml/min/1.73 sqM); Non-African American GFR(CKD) >90 (>60 ml/min/1.73 sqM)
[2020-01-06] MEDS: PANTOPRAZOLE 40 MG TABLET PO SCH (07:04)
[2020-01-06] MEDS: CEFEPIME 2 GM in SODIUM CHLORIDE 0.9% 100 ML IVPB SCH (07:06)
[2020-01-06] MEDS: RIVAROXABAN 20 MG TAB PO SCH (08:20)
[2020-01-06] MEDS: POTASSIUM CHLORIDE ER 10 MEQ TAB.ER.PRT PO SCH (08:20)
[2020-01-06] MEDS: FUROSEMIDE 20 MG TAB PO SCH (08:20)
[2020-01-06] MEDS: DILTIAZEM CD 120 MG CAP.ER.24H PO SCH (08:20)
[2020-01-06] MEDS: SYMBICORT 160-4.5 MCG INHALER INHALATION SCH (08:45)
[2020-01-06 09:31] VITALS: BP 119/56; TEMP 98.2
--- NOTE | 2020-01-06 11:12 | P.PN ---
Subjective Progress Note Date: 01/06/20 Acute left lower lobe pneumonia suspected community-acquired On 01/06/2020 patient seen in follow-up on selective care unit, he sitting up in a bed, in no acute distress, pulse ox is 95% on 4 L, hemodynamically stable, afebrile, breathing is nonlabored, patient is still awaiting results of the COVID 19 testing, his cough is nonproductive, has not been able to produce a sputum culture, does not feel congested, lung sounds reveal some crackles and bilateral bases, no rhonchi or wheezing, blood culture show no growth, patient is on a combination of cefepime and Levaquin, he is also on IV steroids. He has had no nausea, no vomiting, no diarrhea. Blood pressure is stable. Breathing is unlabored. Infectious disease following Objective - Vital Signs Vital signs: Vital Signs Temp 98.2 F 01/06/20 08:00 Pulse 88 01/06/20 08:59 Resp 18 01/06/20 08:00 BP 119/56 01/06/20 08:00 Pulse Ox 95 01/06/20 08:00 Intake & Output 01/05/20 01/06/20 01/06/20 18:59 06:59 18:59 Intake Total 1450 Balance 1450 Weight 102.7 kg Intake: Intake, IV Titration 100 Amount Cefepime 2 gm In Sodium 100 Chloride 0.9% 100 ml @ 200 mls/hr IVPB Q12H [facility] Rx#:[id number] Oral 1350 - Exam GENERAL EXAM: Alert, very pleasant, 54-year-old white male, and 4 L of oxygen, with a pulse ox of 95% comfortable in no apparent distress. HEAD: Normocephalic/atraumatic. EYES: Normal reaction of pupils, equal size. Conjunctiva pink, sclera white. NOSE: Clear with pink turbinates. THROAT: No erythema or exudates. NECK: No masses, no JVD, no thyroid enlargement, no adenopathy. CHEST: No chest wall deformity. Symmetrical expansion. LUNGS: Equal air entry with a few bibasilar crackles CVS: Regular rate and rhythm, normal S1 and S2, no gallops, no murmurs, no rubs ABDOMEN: Soft, nontender. No hepatosplenomegaly, normal bowel sounds, no guarding or rigidity. EXTREMITIES: No clubbing, no edema, no cyanosis, 2+ pulses and upper and lower extremities. MUSCULOSKELETAL: Muscle strength and tone normal. SPINE: No scoliosis or deformity SKIN: No rashes CENTRAL NERVOUS SYSTEM: Alert and oriented -3. No focal deficits, tone is normal in all 4 extremities. PSYCHIATRIC: Alert and oriented -3. Appropriate affect. Intact judgment and insight. - Labs CBC & Chem 7: 01/05/20 05:47 01/06/20 05:39 Labs: Microbiology - Last 24 Hours (Table) 01/03/20 21:20 Blood Culture - Preliminary Blood No Growth after 48 hours Assessment and Plan Plan: Assessment: Acute left lower lobe pneumonia is strongly suspected, community-acquired in nature. Acute exacerbation of COPD known to have history of severe COPD FEV1 of 27%. Acute on chronic hypoxic and hypercapnic respiratory failure Chronic left hemidiaphragm paralysis Remote history of pulmonary embolism Tobacco dependence syndrome Chronic left lower lobe atelectasis however considering his presentation, concern about pneumonia involving the left lower lobe and lingula was in the differential, however probably not bacterial related to a low-protein acetone level at 0.07 Plan: Patient is breathing easier, vitals are stable, no acute events overnight, pro- calcitonin level is low at 0.07, no fever or chills, he remains on combination of cefepime and Levaquin. Blood cultures negative. No acute events overnight, no fever or chills. Fever pattern had improved, wean FiO2, increase activity as tolerated. From pulmonary perspective patient can be considered for discharge home today. I performed a history & physical examination of the patient and discussed their management with my nurse practitioner, Amara Pham. I reviewed the nurse practitioner's note and agree with the documented findings and plan of care. Lung sounds are positive for a few basilar crackles The findings and the impression was discussed with the patient. I attest to the documentation by the nurse practitioner. Time with Patient: Less than 30
[2020-01-06 11:57] LABS: Glucose,Whole Blood 183 mg/dL (75-99)
[2020-01-06] MEDS ORDERED: INSULIN ASPART (NovoLOG) 100 UNIT/ML VIAL SQ SCH (12:30)
--- NOTE | 2020-01-06 12:44 | P.DS ---
Providers Date of admission: 01/04/20 02:59 Attending physician: Ltei Siddiqui Consults: 01/03/20 23:50 Consult Physician Routine Consulting Provider: Herbert Zapata Consult Reason/Comments: Acute hypoxic respiratory failure; pneumonia Do you want consulting provider notified?: Yes 01/04/20 00:33 Consult Physician Routine Consulting Provider: Dalton Elmore Consult Reason/Comments: Pneumonia; Poss COVID Do you want consulting provider notified?: Yes Primary care physician: Vic Serna Hospital Course: Diagnoses: Lower lobe pneumonia Acute COPD exacerbation Acute on Chronic hypoxic respiratory failure History of DVT and pulmonary thromboembolism on Xarelto History of chronic low back pain History of depression, not an active fissure History of left reflex sympathetic dystrophy Hospital course: This is a pleasant 54 years old male with past medical history of COPD, chronic heart failure, deep venous thrombosis and pulmonary embolism on Xarelto, chronic hypoxic respiratory failure on home oxygen at 3-4 L via nasal cannula, left reflex sympathetic dystrophy, chronic low back pain, depression. Presents because of worsening dyspnea with chronic cough . Chest x-ray: Left basilar airs pace disease suspicious for atelectasis or pneumonia. Patient has been evaluated by telecom specialist and infectious disease, he was placed on cefepime and Levaquin, however her cystic Levaquin because of reaction. Patient continue on Solu-Medrol and he showed interval improvement, on the day of discharge she denies chest pain or dyspnea no abdominal pain no nausea vomiting no change in urine or bowel habits. Patient agrees to go home He is been evaluated by telecom specialist on exam for discharge. Infectious disease team also clear The patient for discharge patient will be discharged on tapering steroids and antibiotics as per ID team. He already has home oxygen Problems and management plan were discussed with the patient and he verbalized understanding and acceptance Patient was found stable and can be discharged home however he needs follow-up as an outpatient. Patient was instructed to follow up with PCP Dr. Gallagher within one week and patient agrees. Patient was instructed to follow up with his telecom specialist Dr. Patel in 1-2 weeks, he agrees but he wants to make his own appointments. Patient told me he has his own home oxygen Gen: patient is a AAOx3, no distress CVS: S1-S2, RRR, no murmur Lungs: B/L CTA, no wheezing Abdomen: soft, no distention, no tenderness, positive bowel sounds Extremity: no leg edema or induration Time spent more than 35 minutes Patient Condition at Discharge: Serious Plan - Discharge Summary Discharge Rx Participant: Yes New Discharge Prescriptions: No Action Albuterol Inhaler [Ventolin Hfa Inhaler] 1 - 2 puff INHALATION RT-Q6H PRN PRN Reason: Shortness Of Breath Rivaroxaban [Xarelto] 20 mg PO DAILY Potassium Chloride ER [K-Dur 10] 10 meq PO DAILY Furosemide [Lasix] 20 mg PO BID Diltiazem Cd [Cardizem CD] 120 mg PO DAILY Albuterol Nebulized [Ventolin Nebulized] 2.5 mg INHALATION RT-Q6H PRN PRN Reason: Shortness Of Breath Acetaminophen [Tylenol] 500 mg PO Q4-6H PRN #30 tab PRN Reason: Pain Ipratropium-Albuterol Nebulize [Duoneb 0.5 mg-3 mg/3 ml Soln] 3 ml INHALATION RT-Q6H PRN PRN Reason: Shortness Of Breath Montelukast [Singulair] 10 mg PO HS Discharge Medication List Albuterol Inhaler [Ventolin Hfa Inhaler] 1 - 2 puff INHALATION RT-Q6H PRN 08/01/17 [History] Furosemide [Lasix] 20 mg PO BID 08/01/17 [History] Potassium Chloride ER [K-Dur 10] 10 meq PO DAILY 08/01/17 [History] Rivaroxaban [Xarelto] 20 mg PO DAILY 08/01/17 [History] Diltiazem Cd [Cardizem CD] 120 mg PO DAILY 04/21/19 [History] Albuterol Nebulized [Ventolin Nebulized] 2.5 mg INHALATION RT-Q6H PRN 10/23/19 [History] Acetaminophen [Tylenol] 500 mg PO Q4-6H PRN #30 tab 10/25/19 [Rx] Ipratropium-Albuterol Nebulize [Duoneb 0.5 mg-3 mg/3 ml Soln] 3 ml INHALATION RT-Q6H PRN 01/03/20 [History] Montelukast [Singulair] 10 mg PO HS 01/03/20 [History] Follow up Appointment(s)/Referral(s): Kareem Ho MD [Primary Care Provider] - 1-2 days (Patient stated he wants to make his own discharge appt. ) Hero Garcia DO [Doctor of Osteopathic Medicine] - 2 Weeks (pt stated he wanted to make his own discharge appts. ) Activity/Diet/Wound Care/Special Instructions: may need indigent funds home quarantine until COVID results are given.
[2020-01-06 13:00] VITALS: PULSE 80
--- NOTE | 2020-01-06 16:38 | PN ---
PROGRESS NOTE DATE OF SERVICE: 01/06/2020 REASON FOR FOLLOWUP: Pneumonia, possibly community-acquired. INTERVAL HISTORY: The patient is currently afebrile. The patient is feeling much better. He is breathing comfortably. The patient mentioned his cough has improved and is back to his baseline and he is not bringing up any sputum. No nausea, no vomiting or abdominal pain. No diarrhea. The patient is refusing his Levaquin. PHYSICAL EXAMINATION: Blood pressure 119/56, pulse of 79, temperature 98.2. He is 95% on 4 L nasal cannula. General description is a middle-aged male lying in bed in no distress. RESPIRATORY SYSTEM: Unlabored breathing with decreased intensity of breath sounds. No wheeze. HEART: S1, S2. Regular rate and rhythm. ABDOMEN: Soft. No tenderness. LABS: Creatinine 0.71. Blood culture has been negative. Sputum was not collected. DIAGNOSTIC IMPRESSION AND PLAN: Patient admitted to hospital with fever in this patient who did have a CT angiogram that showed interstitial pneumonitis. He was treated with cefepime and Levaquin. However, the patient refused Levaquin for the last 2 days, as there was some local reaction initially. The patient is feeling better and wants to go home. Antibiotic was switched over to Ceftin 500 mg twice a day for a week, with close outpatient followup. Prescription was sent to the pharmacy. JAQUELIN / MICHELLE: [id number] /
--- NOTE | 2020-01-08 23:58 | CDI ---
Documentation Clarification Form Date: 01/09/2020 From: Chandan Mancia Phone: If you have a question about this query, please contact Chelsie Bishop Flavor Extractor at [phone] between 8am and 5pm. Admit Date: 01/04/2020 Discharge Date: 01/06/2020 Patient Name: David Godinez Visit Number: [id number] ATTENTION: The Clinical Documentation Specialists (CDI) and [facility] Coding Staff appreciate your assistance in clarifying documentation. Please respond to the clarification below the line at the bottom and electronically sign. The CDI & [facility] Coding staff will review the response and follow-up if needed. Please note: Queries are made part of the Legal Health Record. If you have any questions, please contact the author of this message via ITS. Dear Jose Enrique Cabral., The patient presented with pneumonia and COPD. History/Risk Factors: COPD, Chronic respiratory failure. WBC : 7.5 Lactic acid: 2.2 Blood cultures: negative Vitals signs on admission: Pulse Rate 101 H 140 H 130 H Respiratory 24 36 H 34 H Treatment: bronchodilators, antibiotics, steroids ID Consult: Dalton Elmore Antibiotics : cefepime Other: 01/03 Dalton Quesada consult note mentioned "Patient presented to the hospital with sepsis in this patient who did have a fever tachycardia source likely pneumonia will consult for possible community- acquired in this patient who do have underlying COPD, a viral pneumonia such as COVID-19 return excluded." In your professional opinion, please clarify if these findings signify one of the following conditions, Condition Sepsis ruled out SIRS, without underlying infectious process Sepsis Severe Sepsis Septic Shock Other, please specify Unable to determine Unable to determine MTDD
--- NOTE | 2020-01-24 18:49 | CDI ---
Documentation Clarification Form Date: 01/24/2020 06:44:22 PM From: Nina Edwards RN, CCDS Admit Date: 01/04/2020 02:59:00 AM Patient Name: David Godinez Visit Number: [id number] Discharge Date: 01/06/2020 05:23:00 PM ATTENTION: The Clinical Documentation Specialists (CDI) and [facility] Coding Staff appreciate your assistance in clarifying documentation. Please respond to the clarification below the line at the bottom and electronically sign. The CDI & [facility] Coding staff will review the response and follow-up if needed. Please note: Queries are made part of the Legal Health Record. If you have any questions, please contact the author of this message via ITS. Dr. Quispe E Isaiah Covid 19 is documented in the medical record with a negative test result and requires further clarification. Patient history/risk factors: COPD, CHF, chronic hypoxic respiratory failure on home o2 3-4 L, reflex sympathetic dystrophy, pneumonia, PE, current everyday smoker Clinical Indicators: 01/03 Pulmonary Consult:1-patient presented to the hospital with sepsis in this patient who did have a fever tachycardia source likely pneumonia will consult for possible community- acquired in this patient who do have underlying COPD, a viral pneumonia such as COVID-19 return excluded. Plan: 1-respiratory isolation COVID-19 testing is complete 2-discontinue gentamicin." 01/03/2020 CXR:"There is left diaphragm elevation and left basilar atelectasis similar to old exam. No heart failure seen. This could relate to diaphragm paralysis." Labs: CRP 33.8 01/02 Viral Panel: Negative Coronavirus (PCR) resulted 01/05 Negative 01/02 2055 Vital Signs: Temp 102.6, hr 101, RR 24, B/P 116/76, spo2 91% 4l NC Treatment: Consult: ID: treated patient for interstitial Pneumonitis w Cefepime and Levaquin In order to capture the severity of condition, please clarify if the above treatment/clinical indicators signify: COVID-19 ruled out Other, please specify (Last Form Revision: December 2019) Other, please specify: covid test non detected, however test is not 100% sensitive , please refer to note for more details MTDD
--- NOTE | 2020-01-31 13:16 | CDI ---
Documentation Clarification Form Date: 01/30/2020 09:24:00 AM From: Nina Edwards RN, CCDS Admit Date: 01/04/2020 02:59:00 AM Patient Name: David Godinez Visit Number: [id number] Discharge Date: 01/06/2020 05:23:00 PM ATTENTION: The Clinical Documentation Specialists (CDI) and [facility] Coding Staff appreciate your assistance in clarifying documentation. Please respond to the clarification below the line at the bottom and electronically sign. The CDI & [facility] Coding staff will review the response and follow-up if needed. Please note: Queries are made part of the Legal Health Record. If you have any questions, please contact the author of this message via ITS. Dr. Quispe Sheet Based on your previous query response please provide further clarification regarding Covid, as "possible" and "Suspected" cannot be coded for this diagnosis and to accurately reflect this patients SOI/ROM. 01/29 Covid Query response: "Covid test non detected, however test is not 100% sensitive, please refer to note for more details." Patient history/risk factors: COPD, CHF, chronic hypoxic respiratory failure on home o2 3-4 L, reflex sympathetic dystrophy, pneumonia, PE, current everyday smoker Clinical Indicators: 01/03 Pulmonary Consult: 1-patient presented to the hospital with sepsis in this patient who did have a fever tachycardia source likely pneumonia will consult for possible community- acquired in this patient who do have underlying COPD, a viral pneumonia such as COVID-19 return excluded. Plan: 1-respiratory isolation COVID-19 testing is complete 2-discontinue gentamicin." 01/05 D/C Summary: "Pneumonia: possible COVID" 01/03/2020 CXR:"There is left diaphragm elevation and left basilar atelectasis similar to old exam. No heart failure seen. This could relate to diaphragm paralysis. Labs: Ferritin 86.4, CRP 33.8, procalcitonin 0.7 01/03/2020 Viral Panel: Coronavirus (PCR) resulted 01/05 Negative 01/02 2055 Vital Signs: Temp 102.6, hr 101, RR 24, B/P 116/76, spo2 91% 4l NC ID: treated patient for interstitial Pneumonitis w Cefepime and Levaquin Treatment: Consult: Pulmonary and ID 01/03-01/05 Cefepime 2gm IVPB Q 12 hrs 01/03 Gentamycin 600 mg IVPB x 1 dose 01/02-01/03 Levaquin 75 mg IVPB x 2 doses Patient was D/C on COVID precautions In order to capture the severity of condition, please clarify if the above treatment/clinical indicators signify: False negative, treating for COVID-19 based on these clinical indicators (Please Specify) COVID-19 ruled out Other, please specify Unable to determine (Last Form Revision: December 2019) Unable to determine MTDD
--- NOTE | 2020-02-07 11:40 | CDI ---
Documentation Clarification Form Documentation Clarification Form Date: 01/30/2020 09:24:00 AM From: Nina Edwards RN, CCDS Admit Date: 01/04/2020 02:59:00 AM Patient Name: David Godinez Visit Number: [id number] Discharge Date: 01/06/2020 05:23:00 PM ATTENTION: The Clinical Documentation Specialists (CDI) and [facility] Coding Staff appreciate your assistance in clarifying documentation. Please respond to the clarification below the line at the bottom and electronically sign. The CDI & [facility] Coding staff will review the response and follow-up if needed. Please note: Queries are made part of the Legal Health Record. If you have any questions, please contact the author of this message via ITS. Dr. Quispe Sheet Based on your previous query response please provide further clarification regarding Covid, as "possible" and "Suspected" cannot be coded for this diagnosis and to accurately reflect this patients SOI/ROM. 01/29 Covid Query response: "Covid test non detected, however test is not 100% sensitive, please refer to note for more details." Patient history/risk factors: COPD, CHF, chronic hypoxic respiratory failure on home o2 3-4 L, reflex sympathetic dystrophy, pneumonia, PE, current everyday smoker Clinical Indicators: 01/03 Pulmonary Consult: 1-patient presented to the hospital with sepsis in this patient who did have a fever tachycardia source likely pneumonia will consult for possible community- acquired in this patient who do have underlying COPD, a viral pneumonia such as COVID-19 return excluded. Plan: 1-respiratory isolation COVID-19 testing is complete 2-discontinue gentamicin." 01/05 D/C Summary: "Pneumonia: possible COVID" 01/03/2020 CXR:"There is left diaphragm elevation and left basilar atelectasis similar to old exam. No heart failure seen. This could relate to diaphragm paralysis. Labs: Ferritin 86.4, CRP 33.8, procalcitonin 0.7 01/03/2020 Viral Panel: Coronavirus (PCR) resulted 01/05 Negative 01/02 2055 Vital Signs: Temp 102.6, hr 101, RR 24, B/P 116/76, spo2 91% 4l NC ID: treated patient for interstitial Pneumonitis w Cefepime and Levaquin Treatment: Consult: Pulmonary and ID 3/21-01/05 Cefepime 2gm IVPB Q 12 hrs 01/03 Gentamycin 600 mg IVPB x 1 dose 01/02-01/03 Levaquin 75 mg IVPB x 2 doses Patient was D/C on COVID precautions In order to capture the severity of condition, please clarify if the above treatment/clinical indicators signify: False negative, treating for COVID-19 based on these clinical indicators (Please Specify) COVID-19 ruled out COVID 19 ruled in Other, please specify (Last Form Revision: December 2019) Please be aware that there is no test done in the hospital to rule out Covid 19 as we need high sensitive test. However for billing purposes and as you keep sending me the same queries ( this is the third one ) then consider (COVID-19 ruled out) MTDD
== END 2020-01-06 17:23 | disposition home or self-care (01) | DRG 193 ==
LOC: EC 20:53 → 3SCARD 01-04 02:59
PROVIDERS: ADMIT Hospitalist; ATTEND Hospitalist
DX: J18.9 Pneumonia, unspecified organism (principal); J96.22 Acute and chronic respiratory failure with hypercapnia; J96.21 Acute and chronic respiratory failure with hypoxia; J44.1 Chronic obstructive pulmonary disease with (acute) exacerbation; J44.0 Chronic obstructive pulmonary disease with (acute) lower respiratory infection; G90.50 Complex regional pain syndrome I, unspecified; F17.200 Nicotine dependence, unspecified, uncomplicated; F32.9 Major depressive disorder, single episode, unspecified; I50.9 Heart failure, unspecified; Z20.828 Contact with and (suspected) exposure to other viral communicable diseases; Z79.01 Long term (current) use of anticoagulants; Z79.899 Other long term (current) drug therapy; Z86.711 Personal history of pulmonary embolism; Z86.14 Personal history of Methicillin resistant Staphylococcus aureus infection; Z86.718 Personal history of other venous thrombosis and embolism; Z99.81 Dependence on supplemental oxygen; Z88.0 Allergy status to penicillin; Z90.89 Acquired absence of other organs; Z98.890 Other specified postprocedural states; Z80.9 Family history of malignant neoplasm, unspecified
CPT/HCPCS: 36415; 71045; 71275; 80048; 80053; 80170; 82553; 82565; 82728; 83605; 83735; 84145; 84484; 85025; 85379; 85610; 85652; 85730; 86140; 87040; 87502; 93005; 94640; 94660; 96361; 96365; 96367; 96375; 99285

== ENCOUNTER 2023-04-07 19:56 | Emergency (ER) | payer MEDICARE ==
[2023-04-07 20:05] VITALS: RESP 22
[2023-04-07] MEDS ORDERED: KETOROLAC 15 MG/ML 1 ML VIAL IM STA (20:43)
--- NOTE | 2023-04-07 21:20 | US ---
EXAMINATION TYPE: US venous doppler duplex LE RT DATE OF EXAM: 04/07/2023 9:10 PM COMPARISON: NONE CLINICAL INDICATION: Male, 57 years old with history of cramping; cramping/edema right leg. History o f DVT left leg. Patient not currently on blood thinner SIDE PERFORMED: right TECHNIQUE: The lower extremity deep venous system is examined utilizing real time linear array sonog garrison with graded compression, doppler sonography and color-flow sonography. VESSELS IMAGED: Common Femoral Vein Deep Femoral Vein Greater Saphenous Vein * Femoral Vein Popliteal Vein Small Saphenous Vein * Proximal Calf Veins (* superficial vessels) Right Leg: *positive for DVT, thrombus noted within femoral vein and duplicate popliteal vein IMPRESSION: Positive for DVT, thrombus noted within femoral vein and duplicate popliteal vein Findings communicated to Dr. Jorge Garcia, PAC on 04/07/2023 9:[address] Hero Cast.
[2023-04-07] MEDS ORDERED: RIVAROXABAN 20 MG TAB PO STA (21:30)
--- NOTE | 2023-04-07 21:36 | ED ---
Extremity Problem HPI - General Chief complaint: Extremity Problem,Nontraumatic Stated complaint: rt leg pain Time Seen by Provider: 04/07/23 20:11 Source: patient Mode of arrival: ambulatory Limitations: no limitations - History of Present Illness Initial comments: 57-year-old male presenting with chief complaint of right leg cramping that started this afternoon. Patient denies any injury or trauma. Patient has history of DVT in the left leg that occurred back in 1988. Patient was previously on Cerner also, has not taken it in the last 3-4 months due to difficulties obtaining a new prescription. No chest pain, difficulty breathing, palpitations, numbness, tingling, weakness. He does note a small amount of swelling to the right leg. - Related Data Home Medications Medication Instructions Recorded Confirmed Potassium Chloride ER [K-Dur 10] 10 meq PO DAILY 08/01/17 01/03/20 Diltiazem Cd [Cardizem CD] 120 mg PO DAILY 04/21/19 01/03/20 Montelukast [Singulair] 10 mg PO HS 01/03/20 01/03/20 Previous Rx's Medication Instructions Recorded Acetaminophen [Tylenol] 500 mg PO Q4-6H PRN #30 tab 10/25/19 Albuterol Inhaler [Ventolin Hfa 1 - 2 puff INHALATION RT-Q6H PRN 01/06/20 Inhaler] #1 inh Albuterol Nebulized [Ventolin 2.5 mg INHALATION RT-Q6H PRN #1 neb 01/06/20 Nebulized] Budesonide-Formot 160-4.5 Mcg 2 puff INHALATION RT-BID #1 inh 01/06/20 [Symbicort 160-4.5 Mcg Inhaler] Furosemide [Lasix] 20 mg PO BID 30 Days #60 tab 01/06/20 Ipratropium-Albuterol Nebulize 3 ml INHALATION RT-Q4H #60 ml 01/06/20 [Duoneb 0.5 mg-3 mg/3 ml Soln] Pantoprazole [Protonix] 40 mg PO AC-BRKFST #30 tablet. 01/06/20 Rivaroxaban [Xarelto] 20 mg PO DAILY #30 tab 01/06/20 cefUROXime axetiL [Ceftin] 500 mg PO BID #10 tab 03/23/20 guaiFENesin-DM 100-10MG/5ML 10 ml PO Q8H PRN 5 Days #200 ml 01/06/20 [Robitussin DM] predniSONE 10 mg PO DIRECTED #40 tab 01/06/20 Rivaroxaban [Xarelto Starter Pack] 0 mg PO DIRECTED 30 Days #1 04/07/23 packet Allergies Allergy/AdvReac Type Severity Reaction Status Date / Time Penicillins Allergy Anaphylaxis Verified 04/07/23 20:05 Review of Systems ROS Statement: Those systems with pertinent positive or pertinent negative responses have been documented in the HPI. ROS Other: All systems not noted in ROS Statement are negative. Past Medical History Past Medical History: Heart Failure, COPD, Deep Vein Thrombosis (DVT), Neurologic Disorder, Pneumonia, Pulmonary Embolus (PE), Vascular Disorder Additional Past Medical History / Comment(s): Chronic respiratory failure with home oxygen at 4L/NC ATC and a ventilator for HS, bronchitis, pleurisy, bilateral PEs, DVT L lower leg, L reflex sympathetic dystrophy, past L elbow septic joint, chronic low back pain, varicosities History of Any Multi-Drug Resistant Organisms: MRSA Date of last positivie culture/infection: 07/27/2014 MDRO Source:: Left leg Past Surgical History: Tonsillectomy Additional Past Surgical History / Comment(s): L elbow I&D Past Anesthesia/Blood Transfusion Reactions: No Reported Reaction Past Psychological History: Depression Smoking Status: Former smoker Past Alcohol Use History: None Reported Past Drug Use History: None Reported - Past Family History Father Family Medical History: No Reported History Additional Family Medical History / Comment(s): Father was healthy Mother Family Medical History: Cancer Additional Family Medical History / Comment(s): Pt cannot recall type of cancer. General Exam Limitations: no limitations General appearance: alert, in no apparent distress Head exam: Present: atraumatic, normocephalic, normal inspection Eye exam: Present: normal appearance, EOMI. Absent: scleral icterus, periorbital swelling Neck exam: Present: normal inspection, full ROM Respiratory exam: Present: normal lung sounds bilaterally. Absent: respiratory distress, wheezes, rales, rhonchi, stridor Cardiovascular Exam: Present: regular rate, normal rhythm, normal heart sounds. Absent: systolic murmur, diastolic murmur, rubs, gallop, clicks Extremities exam: Present: full ROM, normal capillary refill, pedal edema. Abs ent: tenderness Neurological exam: Present: alert, oriented X3, CN II-XII intact Psychiatric exam: Present: normal affect, normal mood Skin exam: Present: warm, dry, intact, normal color. Absent: rash Course Vital Signs 04/07/23 04/07/23 20:01 21:44 Temperature 97.9 F 98.2 F Pulse Rate 116 H 65 Respiratory 22 22 Rate Blood Pressure 123/81 107/69 O2 Sat by Pulse 94 L 95 Oximetry Medical Decision Making - Medical Decision Making Was pt. sent in by a medical professional or institution (, PA, HEAD COACH, urgent care, hospital, or alf...) When possible be specific @ -No Did you speak to anyone other than the patient for history (EMS, parent, family, police, friend...)? What history was obtained from this source @ -No Did you review nursing and triage notes (agree or disagree)? Why? @ -I reviewed and agree with nursing and triage notes Were old charts reviewed (outside hosp., previous admission, EMS record, old EKG, old radiological studies, urgent care reports/EKG's, alf records)? Report findings @ -No old charts were reviewed Differential Diagnosis (chest pain, altered mental status, abdominal pain women, abdominal pain men, vaginal bleeding, weakness, fever, dyspnea, syncope, headache, dizziness, GI bleed, back pain, seizure, CVA, palpatations, mental health, musculoskeletal)? @ -Differential Musculoskeletal Muscular strain, contusion, ligament sprain, fracture, arthritis, septic arthri tis, bursitis, cellulitis, muscle spasm, nerve compression, DVT, arterial occlusion, herpes zoster, electrolyte abnormality, tumor.... This is not meant to be in all inclusive list EKG interpreted by me (3pts min.). @ -As above X-rays interpreted by me (1pt min.). @ -None done CT interpreted by me (1pt min.). @ -None done U/S interpreted by me (1pt. min.). @ -Ultrasound is positive for DVT, thrombus noted within femoral vein and duplicate popliteal vein What testing was considered but not performed or refused? (CT, X-rays, U/S, labs)? Why? @ -None What meds were considered but not given or refused? Why? @ -None Did you discuss the management of the patient with other professionals (professionals i.e. DrKalin, PA, HEAD COACH, lab, RT, psych nurse, social sciences professor, circuit breaker mechanic, teacher, commanding officer homicide squad, case briefer)? Give summary @ -No Was smoking cessation discussed for >3mins.? @ -No Was critical care preformed (if so, how long)? @ -No Were there social determinants of health that impacted care today? How? (Homelessness, low income, unemployed, alcoholism, drug addiction, transportation, low edu. Level, literacy, decrease access to med. care, longterm, rehab)? @ -No Was there de-escalation of care discussed even if they declined (Discuss DNR or withdrawal of care, Hospice)? DNR status @ -No What co-morbidities impacted this encounter? (DM, HTN, Smoking, COPD, CAD, Cancer, CVA, ARF, Chemo, Hep., AIDS, mental health diagnosis, sleep apnea, morbid obesity)? @ -History of DVT Was patient admitted / discharged? Hospital course, mention meds given and route, prescriptions, significant lab abnormalities, going to OR and other pertinent info. @ -57-year-old male presenting with chief complaint of right leg cramping that started today. He doesn't know there is some mild swelling to the leg. History of DVT, has not been on his relative for the last 3-4 months due to difficulty obtaining a new prescription. Ultrasound is positive for DVT within the femoral vein and duplicate popliteal vein. Patient is given 20 mg were also here in the ER, starter pack it into his pharmacy. Patient is instructed to follow-up with PCP and vascular. Follow-up with PCP. Report back to ER with any new or worsening symptoms. Discussed return parameters and answered all questions. Patient conveyed verbal understanding and agreed to the plan. I discussed this case in detail with my attending Dr. Betts Undiagnosed new problem with uncertain prognosis? @ -No Drug Therapy requiring intensive monitoring for toxicity (Heparin, Nitro, Insulin, Cardizem)? @ -No Were any procedures done? @ -No Diagnosis/symptom? @ -DVT Acute, or Chronic, or Acute on Chronic? @ -Acute Uncomplicated (without systemic symptoms) or Complicated (systemic symptoms)? @ -Uncomplicated Side effects of treatment? @ -No Exacerbation, Progression, or Severe Exacerbation? @ -No Poses a threat to life or bodily function? How? (Chest pain, USA, MD, pneumonia, PE, COPD, DKA, ARF, appy, cholecystitis, CVA, Diverticulitis, Homicidal, Suicidal, threat to staff... and all critical care pts) @ -Low likelihood Disposition Clinical Impression: Deep vein thrombosis (DVT) of lower extremity Disposition: HOME SELF-CARE Condition: Fair Instructions (If sedation given, give patient instructions): Deep Vein Thrombosis (ED) Additional Instructions: Follow-up with PCP. Report back to ER with any new or worsening symptoms. Take medication as prescribed. Prescriptions: Rivaroxaban [Xarelto Starter Pack] 0 mg PO DIRECTED 30 Days #1 packet Is patient prescribed a controlled substance at d/c from ED?: No Referrals: Kareem Ho MD [Primary Care Provider] - 1-2 days Moncho Ricks DO [Doctor of Osteopathic Medicine] - 1-2 days Time of Disposition: 21:36
[2023-04-07 21:47] VITALS: BP 107/69; PULSE 65; TEMP 98.2
== END 2023-04-07 21:45 | disposition home or self-care (01) ==
LOC: EC 19:56
DX: I82.411 Acute embolism and thrombosis of right femoral vein (principal); J44.9 Chronic obstructive pulmonary disease, unspecified; I50.9 Heart failure, unspecified; Z88.0 Allergy status to penicillin; Z87.891 Personal history of nicotine dependence; Z79.899 Other long term (current) drug therapy; Z86.711 Personal history of pulmonary embolism
CPT/HCPCS: 93971; 99283; 96372; J1885